=== PATIENT | female | born 1960 | race Caucasian/White ===

== ENCOUNTER → 2018-11-23 08:17 | Outpatient (CLI) | payer BC, SELFPAY ==
--- NOTE | 2018-11-23 08:27 | XR_ITS ---
XR DEXA axial skeleton HISTORY: ITS.REASON: POST MENOPAUSAL SCREENING ORDERING PHYSICIAN: Raiza Webster MD PATIENT AGE: 58 years COMPARISON: None FINDINGS: The BMD measured at the Right femoral neck is 0.920 g/cm squared with a T score of -0.8. This is considered Normal according to the World Health Organization criteria. Fracture risk is Low. Treatment is advised. IMPRESSION: Normal bone density with low fracture risk. Recommend follow-up exam November 2020
--- NOTE | 2018-11-23 08:27 | MM_ITS ---
MM Dig screening mamm BI w/CAD ORDERING PHYSICIAN : Raiza Webster MD PATIENT AGE: 58 years GENDER: Female COMPARISON: Previous bilateral digital mammogram from April 2009 INDICATION: Routine: SCREENING no hormones. No new complaints. Family history. Maternal aunts & maternal cousins with breast cancer TECHNIQUE: Standard CC and MLO images were obtained. R2 CAD reviewed. FINDINGS: Minimal residual fibrolinear elements Lower breast bilaterally with. Mild heterogeneity No dominant mass nor suspicious mass. No architectural distortion. Minor asymmetry with subtle nodularity slightly more evident evident-with this feature appearing similar to previous studies. RIGHT BREAST:No new areas of concern. Follow-up in one year. LEFT BREAST: There are some scattered scattered minimal linear calcifications in the deep axillary breast.-Best seen on the additional axillary cc view & MLO view.. A few of these were seen in 2008 but become more numerous in the interval. Most likely benign secretory calcifications or less likely some form of dermal calcification. Also somewhat similar character linear calcifications at the medial/inferior left breast, labeled X which have developed, & become apparent since prior studies. Although these are more likely benign calcifications a would benefit from follow-up diagnostic left mammogram in 6 months to confirm stability.. Probably with routine protocol thereafter.. IMPRESSION: ... LEFT BREAST loosely grouped, benign-appearing linear calcifications have developed in both the upper outer quadrant ( labeled Y) & inferior medial breast. (Labeled X).. These are by far most likely benign calcifications, likely benign secretory calcifications but would suggest a follow-up left mammogram 6-7 months to better establish and confirm stability. Hopefully with routine protocol thereafter RIGHT BREAST. No new areas of concern follow-up in one year BI-RADS Category: 3 Probably Benign Finding Short Term Follow-up RECOMMENDED FOLLOW-UP: 6M 6 MONTH FOLLOW-UP Follow-up left mammogram 6 - 7 months suggested. (A letter has been sent to the patient regarding results of the study.)
== END ==
PROVIDERS: PCP Emergency Medicine; Visit Provider Emergency Medicine
DX: Z12.13 Encounter for screening for malignant neoplasm of small intestine (principal); Z13.820 Encounter for screening for osteoporosis
CPT/HCPCS: 77067; 77080

== ENCOUNTER → 2019-06-05 14:58 | Outpatient (CLI) | payer BC, SELFPAY ==
--- NOTE | 2019-06-05 15:07 | MM_ITS ---
PROCEDURE: MM DIG MAMM DX UNILAT LT CAD Patient Age:59Y CLINICAL INDICATION: ABN MAMM. Linear scattered calcifications noted at upper outer quadrant on November 2018 mammogram No hormones. No new complaints COMPARISON: [facility] MM Dig screening mamm BI w/CAD from 11/23/2018 left TECHNIQUE: Standard left breast CC and MLO images were obtained. R2 CAD reviewed. Axillary CC view included FINDINGS: Scattered loosely grouped mainly linear calcifications appears stable at upper outer quadrant, unchanged since november 2018 mammogram . A few linear calcifications towards the inferior breast also stable. Of the remainder of the breast appears unchanged with no mass or nodule evident. No additional new areas of concern. Patient may resume bilateral mammogram follow-up in December 2019 IMPRESSION: . Stable left breast The benign-appearing calcifications previously noted have remained stable. Bilateral follow-up and December 2019 recommended to resume annual schedule BI-RAD Category: 2 Benign Finding(s) FOLLOW-UP: 6M 6 Month Follow-up (A letter has been sent to the patient regarding results of the study.) Dictated by: Valentin Moss MD 06/06/2019 11:00 Electronically signed by Valentin Moss MD in [place] 06/06/2019 11:00
== END ==
PROVIDERS: PCP Emergency Medicine; Visit Provider Emergency Medicine
DX: R92.8 Other abnormal and inconclusive findings on diagnostic imaging of breast (principal)
CPT/HCPCS: 77065

== ENCOUNTER → 2019-10-12 11:33 | Outpatient (CLI) | payer BC, SELFPAY ==
--- NOTE | 2019-10-12 11:38 | CA_ITS ---
APPROVED REPORT Left Lower Extremity Venous Study for DVT. Back Stayer: HENRI Indications Lower Extremity Pain: Vein Imaging CFV (L): compressive, spontaneous, phasic, augmentation SFJ (L): compressive, spontaneous, phasic, augmentation FEM (L): compressive, spontaneous, phasic, augmentation POP (L): compressive, spontaneous, phasic, augmentation PTV (L): Compressible GSV (L): Compressible Peroneals (L):Compressible GAS (L): compressive, spontaneous, phasic, augmentation Findings No evidence of DVT or superficial thrombophlebitis in the veins scanned of the left lower extremity. Incidental finding Bakers Cyst l pop area office called Crystal notified Conclusion No evidence of DVT or superficial thrombophlebitis in the veins scanned of the left lower extremity. Small Hernandez's cyst Electronically signed by : Aristides Salinas MD 10/13/2019 17:36:27
--- NOTE | 2019-10-12 12:03 | XR_ITS ---
PROCEDURE: XR KNEE LT 3V CLINICAL INDICATION: LT KNEE PAIN COMPARISON: No exams were available for comparison FINDINGS: No fracture or dislocation. No lytic or blastic change. There is normal mineralization. There are mild osteoarthritic changes involving all 3 compartments most severe at the patellofemoral joint. A small calcific density is present in the medial intercondylar notch region and could be due to small osteophyte or loose body. Other findings:None. IMPRESSION: Osteoarthritis with possible small loose body in the intercondylar region Dictated by: Aristides Salinas MD 10/12/2019 14:05 Electronically signed by Aristides Salinas MD in [place] 10/12/2019 14:05
--- NOTE | 2019-10-13 01:31 | PC.NURSE ---
Medical records sent to [facility]
== END ==
PROVIDERS: PCP Physician Assistant; Visit Provider Physician Assistant
DX: R60.0 Localized edema (principal); M25.562 Pain in left knee
CPT/HCPCS: 73562; 93971

== ENCOUNTER 2020-08-24 09:30 | Emergency (ER) | payer BC, SELFPAY ==
[2020-08-24 09:55] VITALS: BP 149/85; PULSE 89; RESP 19; TEMP 36.8; O2SAT 98; BMI 43.7
--- NOTE | 2020-08-24 10:02 | HMH.EDUTC ---
[facility] [place] Clinical Impression: Sinusitis Qualifiers: Sinusitis location: unspecified location Chronicity: unspecified Qualified Code(s): J32.9 - Chronic sinusitis, unspecified Disposition: Home, Self-Care Condition on Discharge: Good Instructions: Sinusitis, Sinus Headache, DI for Sinusitis, Amoxicillin and Clavulanic Acid Additional Instructions: 4 hours and Motrin every 6 hours (as long as your family doctor has told you that you can take it) for fever or pain. and straight to ER if unable to lower temp less than 101.0 after medication given *Warm salt water gargles may help to soothe the throat *Throat Lozenges *Warm fluids like tea with honey may help to soothe the throat *Sleep elevated *Humidifier/Vaporizer *Flonase 2 sprays in each nostril daily but be aware that it may take 2-3 days before you notice improvement Follow up IMMEDIATELY for new or worsening symptoms or no Noticeable improvement over the next 48-72 hours. 911 for difficulty breathing or swallowing You were tested for today for COVID19 your test result should be back in the next 24-48 hours, you may call to the [facility] to see if your test results are back in the next 48 hours [phone] [facility] hours are 9am-9pm You was given a handout with instructions for Self Quarantine and Self isolation for while you wait on test results and what to do if they are positive If you are positive the Health Dept will be contacting you also Prescriptions: Amoxicillin/Potassium Clav [Augmentin 875-125 Tablet] 1 tab PO Q12H 7 Days #14 tab Transmission Status: Pending to [facility] Fluticasone Propionate [Flonase 50mcg nasal spray 16gm] 1 spr NS DAILY #1 bottle Transmission Status: Pending to [facility] Referrals: Frank Shane MD [Primary Care Provider] - As needed Time of Disposition: 10:10 Medical Decision Making - Luis Inquiry Pt receiving controlled substance: No Luis was queried for this patient: No Vital Signs: 08/24/20 09:55 Temperature 98.3 F Temperature Source Oral Pulse Rate [Radial] 89 Respiratory Rate 19 Blood Pressure [Right Arm] 149/85 H Blood Pressure Mean [Right Arm] 106 Blood Pressure Source [Right Arm] Automatic Cuff Blood Pressure Position [Right Arm] Sitting 02 Sat by Pulse Oximetry 98 Oxygen Delivery Method Room Air Orders (Tests/Meds): ORDERS Category Date Time Status Covid-19 Nasal PCR Sendout [facility] 08/24/20 09:36 Ordered [facility] [place] - General Stated complaint: covid exposure\ Time Seen by Provider: 08/24/20 10:02 Mode of Arrival: Ambulatory Source of Information: Patient Limitations: No Limitations Description of Symptoms (Recalled from Triage Doc. 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 States that for over a week she has been having sinus pain and pressure along with drainage that has continued to get worse over the last 3 days States that she thinks it is a sinus infection but wants to get checked - Related Data Previous Rx's Medication Instructions Recorded Amoxicillin/Potassium Clav 1 tab PO Q12H 7 Days #14 tab 08/24/20 [Augmentin 875-125 Tablet] Fluticasone Propionate [Flonase 1 spr NS DAILY #1 bottle 08/24/20 50mcg nasal spray 16gm] Allergies Allergy/AdvReac Type Severity Reaction Status Date / Time No Known Allergies Allergy Unknown Uncoded 08/31/17 14:27 - Worker's Comp Is this a Worker's Comp case?: No [facility] History - Hepatitis A Screen Drug use history?: No High risk sexual behaviors?: No History of sexually transmitted infection?: No Currently
[2020-08-24 10:18] VITALS: BP 149/85; PULSE 89; RESP 19; TEMP 36.8; O2SAT 98
[2020-08-25 09:34] LABS: Covid-19 Nasal PCR Sendout UK Detected
--- NOTE | 2020-08-25 10:48 | PC.NURSE ---
Patient notified of positive COVID results. Educated on quarantine.
== END 2020-08-24 10:19 | disposition home or self-care (01) ==
PROVIDERS: Emergency Provider Nurse Practitioner; PCP Family Medicine
DX: U07.1 COVID-19 (principal); J32.9 Chronic sinusitis, unspecified
CPT/HCPCS: 99201; U0003

== ENCOUNTER 2020-08-29 10:22 | Emergency (ER) | payer BC, SELFPAY ==
[2020-08-29 10:30] VITALS: BP 104/76; PULSE 102; RESP 22; TEMP 36.6; O2SAT 98; BMI 43.7
--- NOTE | 2020-08-29 10:53 | XR_ITS ---
PROCEDURE: XR CHEST PORTABLE CLINICAL HISTORY: cough, soa Cough, shortness of air, positive Covid19 COMPARISON: No exams were available for comparison FINDINGS: The cardiomediastinal silhouette and pulmonary vascularity are within normal limits. Ground-glass infiltrate noted in the right lower lobe No acute bony abnormalities. IMPRESSION: Right lower lobe ground-glass infiltrate which may be seen with Covid19 pneumonia Dictated by: Aristides Salinas MD 08/29/2020 11:45 Aristides Salinas MD in [place] 08/29/2020 11:45
--- NOTE | 2020-08-29 10:53 | HMH.EDUTC ---
[facility] – [place] Disposition Clinical Impression: COVID-19 Disposition: Home, Self-Care Condition on Discharge: Good Instructions: COVID-19: Protecting Yourself When You're at High Risk, How to Care for Someone with COVID-19, Preventing the Spread of Coronavirus Discharge Instructions Additional Instructions: ? Monitor temp. Tylenol every 4 hours as needed and / or ibuprofen every 6 hours as needed ( As long as your primary care physician has told you that it ok to take both. For fever/aches/pains ER if no less than 101 despite Tylenol or Motrin ? Humidifier/vaporizer or hot steamy shower ? Inhaler every 4-6 hours as needed like we discussed. If unsure how to use it, ask pharmacist to demonstrate how. Should help open airways and improve cough, wheezing, and shortness of breath ? Mucinex during the day for your cough and cough suppressant only at night. Be sure to drink lots of water. Insurance may not cover a prescriptions for mucinex. Might be cheaper to get 400mg tablets and take 2 tablet in the morning, mid-day and evening with lots of water. Make sure that you are taking the vitamins as instructed *Start steroid today. Helps with inflammation therefore, cough and wheezing. Follow directions on the package. Reviewed side effects. Patient reports taking them before. Follow up IMMEDIATELY for new or worsening of symptoms OR no noticeable improvement over the next 48-72 hours. 911 immediately for any life threatening symptoms such as chest pain or difficulty breathing Prescriptions: Albuterol Sulfate [Proventil-HFA 90mcg/puff Inh] 1 - 2 puffs IH Q4HP PRN #1 inh PRN Reason: Shortness Of Breath Transmission Status: Received by [facility] dexAMETHasone [Dexamethasone] 2 mg PO BID #10 tab Transmission Status: Received by [facility] hydrOXYzine pamoate [Vistaril] 25 mg PO BID PRN #10 cap PRN Reason: Anxiety Transmission Status: Received by [facility] Referrals: Frank Shane MD [Primary Care Provider] - As needed Time of Disposition: 11:36 Medical Decision Making - Luis Inquiry Pt receiving controlled substance: No Luis was queried for this patient: No Vital Signs: 08/29/20 10:30 Temperature 97.8 F Temperature Source Oral Pulse Rate [Right Brachial] 102 H Respiratory Rate 22 Blood Pressure [Right Arm] 104/76 L Blood Pressure Mean [Right Arm] 85 Blood Pressure Source [Right Arm] Automatic Cuff Blood Pressure Position [Right Arm] Sitting 02 Sat by Pulse Oximetry 98 Oxygen Delivery Method Room Air Orders (Tests/Meds): ORDERS Category Date Time Status XR chest portable Stat Exams 08/29/20 10:53 Taken - Radiology Data #1 Image(s): Chest Image Reviewed: Yes I reviewed the patient's radiology image, Yes I reviewed the patient's radiology image w/the ED provider Preliminary Findings: Normal/NAD Medical Decision Narrative: Spoke with Dr Crump and he advised to start patient on Dexamethasone, inhaler, and have patient start taking Vitamins patient reports that she is already taking Multivitamins, vitamin D Patient educated to make sure that she is getting at least 1000mg of Vit C and zinc and she advised she thinks she has it at home and if she dont she will have family pick her some up [facility] [place] HPI - General Stated complaint: SOA,covid positive Time Seen by Provider: 08/29/20 10:53 Mode of Arrival: Ambulatory Source of Information: Patient Limitations: No Limitations Description of Symptoms (Recalled from Triage Doc. by RN): PATIENT REPORTS SHE TESTED POSITIVE FOR COVID ON WEDNESDAY. C/O SOA HEENT Symptoms (Recalled from RN notes): No Resp Symptoms (Recalled from RN notes): Yes Skin Symptoms (Recalled from RN notes): No MS Symptoms (Recalled from RN notes): No Functional Status (Recalled from RN notes): WNL - History of Present Illness Provider Complaint: Patient state that she was tested for COVID and found out Wednesday that she was positive for COVID States that at night
[2020-08-29 11:41] VITALS: BP 104/76; PULSE 102; RESP 22; TEMP 36.6; O2SAT 98
== END 2020-08-29 11:45 | disposition home or self-care (01) ==
PROVIDERS: Emergency Provider Nurse Practitioner; PCP Family Medicine
DX: U07.1 COVID-19 (principal); I10 Essential (primary) hypertension; Z79.899 Other long term (current) drug therapy
CPT/HCPCS: 71045; 99201

== ENCOUNTER → 2021-11-10 10:58 | Outpatient (CLI) | payer BC, SELFPAY ==
--- NOTE | 2021-11-10 11:04 | XR_ITS ---
FINAL REPORT CLINICAL HISTORY: ACUTE BILATERAL LOW BACK PAIN, WITHOUT SCIATICA, pain for 36hrs, no known injury FINDINGS: 5 views of the lumbar spine were obtained. There is no evidence of fracture or dislocation. The vertebral alignment is normal. There are mild degenerative changes with facet arthropathy in the lower lumbar spine. No paraspinous soft tissue abnormalities identified. IMPRESSION: No acute bony abnormality. Mild degenerative changes with facet arthropathy lower lumbar spine. Reviewed, Interpreted and Dictated by Elias Mayberry III, MD Transcribed by Deirdre Rodriguez Authenticated by Elias Mayberry III, MD on 11/10/2021 01:13:24 PM [facility]
== END ==
PROVIDERS: PCP Family Medicine; Visit Provider Family Medicine
DX: M54.50 Low back pain, unspecified (principal)
CPT/HCPCS: 72110

== ENCOUNTER → 2021-12-16 14:29 | Outpatient (CLI) | payer BC, SELFPAY | PROVIDERS: PCP Family Medicine; Visit Provider Internal Medicine | DX: Z01.812 Encounter for preprocedural laboratory examination (principal); Z11.52 Encounter for screening for COVID-19; Z13.810 Encounter for screening for upper gastrointestinal disorder | CPT/HCPCS: C9803; U0003; U0005 ==

== ENCOUNTER 2021-12-17 10:23 | Day surgery (SDC) | payer BC, SELFPAY ==
[2021-12-16 14:19] VITALS: BMI 43.3
[2021-12-17] VITALS (8 sets, daily range): BP systolic 88–112; BP diastolic 57–78; PULSE 67–87; RESP 16–20; TEMP 37–37.3; O2SAT 95–97
--- NOTE | 2021-12-17 11:52 | HMH.ANESCL ---
[facility] [place] Anesthesia Checklist - Patient Identification Patient Identification: Arm Band, Verbal (Name & ) - Structural Data Admitted From: Home Planned Operative Procedure/s: Colonoscopy Consent for Planned Operative Procedure(s) Verified: Yes Verified Documents: Surgical Consent - Airway Assessment C-Spine Mobility Assessed: Yes TMJ Mobility Assessed: Yes Dentition: Good Dentition - Neurological Assessment Level of Consciousness: Awake, Alert, Appropriate - Anesthesia Plan Anesthesia Risk discussed: Yes ASA Class: II Anesthesia Type: MAC [facility] [place] History I have reviewed the patient's past medical history: Yes Medical History: Denies:: Diabetes Mellitus Type 1, Diabetes Mellitus Type 2, Internal Pacemaker, Seizures *Have you ever received a pneumonia vaccine?: Yes *Have you received a flu vaccine this season?: Yes Anesthesia experience/problems:: no issues Laterality Cases: Right: Total Knee Replacement, Bilateral: Tonsillectomy Other Surgeries: No: Pacemaker Amputation: No Fractures: No - *Social History Smoking Status: Never smoker Alcohol Intake: never Alcohol Intake Frequency:: holidays/special occasions only Substance Use Type: denies use *Occupational Status:: other Housing: house Household Members: spouse *Travel in the last 8 weeks: None Family Hx:: Unable to obtain
--- NOTE | 2021-12-17 12:08 | HMH.SCOPE ---
- Procedure: Date: 12/17/21 Patient Date of :: 1960 Procedure Performed:: EGD Indications:: GERD. Dysphagia Performing Provider:: Santosh Urban MD Referring Provider:: Kamari Funk MD Sedation:: See RN records Procedure:: The gastroscope was gently passed through the incisoral orifice into the oral cavity and under direct visualization the esophagus was intubated. The endoscope was passed down the esophagus, through the stomach, and into the duodenum. Color, texture, mucosa, and anatomy of the esophagus, stomach, and duodenum were carefully examined with the scope. Findings:: Oropharynx: normal Esophagus: normal EG Junction: Schatzki's ring. Biopsy forceps used to break apart ring. Dilatation performed with 18 mm tts balloon Cardia: Hiatal hernia approximately 3 cm in size Fundus: normal Body: mild gastritis. Biopsy obtained Antrum: mild gastritis. Biopsy obtained Duodenal bulb: normal Duodenum (second and third portion): normal Recommendations:: Await pathology results Return for EGD with esophageal dilatation as needed Follow up with referring provider Complications:: none Estimated blood obtained (mL): 0
== END 2021-12-17 12:54 | disposition home or self-care (01) ==
LOC: OUTP 10:25
PROVIDERS: PCP Family Medicine; Visit Provider Internal Medicine
PROC: 0DJ08ZZ Inspection of Upper Intestinal Tract, Via Natural or Artificial Opening Endoscopic (ICD-10-PCS; CPT 43235; principal; 2021-12-17 11:30)
DX: K22.2 Esophageal obstruction (principal); K29.50 Unspecified chronic gastritis without bleeding; K21.00 Gastro-esophageal reflux disease with esophagitis, without bleeding; I10 Essential (primary) hypertension; F32.A Depression, unspecified; Z79.899 Other long term (current) drug therapy
CPT/HCPCS: 43239; 43249; C1726

== ENCOUNTER → 2021-12-19 10:13 | Outpatient (CLI) | payer BC, SELFPAY ==
--- NOTE | 2021-12-19 10:17 | US_ITS ---
FINAL REPORT CLINICAL HISTORY: GASTROESOPHAGEAL REFLUX,ESOPHAGITIS PRESENCE NOT SPECIFIED; obesity FINDINGS: Sonographic images of the right upper quadrant were obtained. The pancreas is partially obscured. The liver is fatty infiltrated. The gallbladder appears normal without evidence of gallstones.There is no evidence of biliary ductal dilatation.The common duct measures 4mm. Limited images of the right kidney demonstrate cortical thinning better otherwise unremarkable. IMPRESSION: Fatty infiltration of the liver. Right renal cortical thinning. Reviewed, Interpreted and Dictated by Elias Mayberry III, MD Transcribed by Anitha Gonzalez Authenticated by Elias Mayberry III, MD on 12/19/2021 12:24:21 PM [facility]
== END ==
PROVIDERS: PCP Family Medicine; Visit Provider Family Medicine
DX: K21.9 Gastro-esophageal reflux disease without esophagitis (principal)
CPT/HCPCS: 76705

== ENCOUNTER → 2022-04-23 10:17 | Outpatient (CLI) | payer BC, SELFPAY ==
--- NOTE | 2022-04-23 10:23 | MM_ITS ---
PROCEDURE INFORMATION: Exam: MG Bilateral Screening 3D Mammography Exam date and time: 04/23/2022 10:29 AM Age: 62 years old Clinical indication: Screening examination TECHNIQUE: Imaging protocol: Bilateral Screening tomosynthesis and 2D mammography including computer-aided detection (CAD) when performed. COMPARISON: 1. MG MM DIG MAMM DX UNILAT LT CAD 06/05/2019 3:30 PM 2. MG [facility] MM Dig screening mamm BI w/CAD 11/23/2018 8:40 AM FINDINGS: MAMMOGRAPHY: Breast composition: There are scattered areas of fibroglandular density. Mass: None. Architectural distortion: None. Calcifications: No suspicious calcifications. Asymmetric density: None. Skin thickening: None. Axillary adenopathy: None. IMPRESSION: No mammographic evidence of malignancy. Annual screening is recommended unless otherwise clinically indicated. ASSESSMENT: BI-RADS Category 1: Negative
== END ==
PROVIDERS: PCP Family Medicine; Visit Provider Family Medicine
DX: Z12.31 Encounter for screening mammogram for malignant neoplasm of breast (principal)
CPT/HCPCS: 77063; 77067

== ENCOUNTER → 2022-05-04 13:56 | Outpatient (CLI) | payer BC, SELFPAY ==
--- NOTE | 2022-05-04 13:59 | US_ITS ---
FINAL REPORT TECHNIQUE: Ultrasound images of the kidneys and bladder were obtained. CLINICAL HISTORY: REHAL INSUFFICIENCY FINDINGS: The right kidney measures 8 cm in length. There is cortical thinning. There is no hydronephrosis. Decreased flow is seen on the right. The left kidney measures 8 cm in length. There is cortical thinning. There is no hydronephrosis. There is a 3.5 cm left renal lower pole cyst. The urinary bladder is unremarkable. IMPRESSION: Bilateral renal cortical thinning with decreased flow seen of the right kidney. Left renal cyst. Reviewed, Interpreted and Dictated by Ricardo Hooker MD Transcribed by Anitha Gonzalez Authenticated and [facility]
== END ==
PROVIDERS: PCP Family Medicine; Visit Provider Family Medicine
DX: N28.9 Disorder of kidney and ureter, unspecified (principal)
CPT/HCPCS: 76770

== ENCOUNTER → 2022-07-09 07:23 | Outpatient (CLI) | payer BC, SELFPAY ==
[2022-07-09 07:29] LABS: Microscopic, Urine URINE MICROSCOPIC (MICROSCOPIC)
[2022-07-09 08:41] LABS: Appearance,Urine CLEAR (Clear); Bilirubin,Urine Negative (Negative); Blood, Urine Negative (Negative); Color,Urine YELLOW (Yellow); Glucose,Urine (UA) Negative (Negative); Ketones,Urine Negative (Negative); Leukocyte Esterase,Urine 1+ (Negative); Nitrate,Urine Negative (Negative); PH,Urine 5.5 (5.0-8.5); Protein,Urine Negative (Negative); Specific Gravity, Urine 1.025 (1.005-1.030); Urobilinogen,Urine 0.2 EU/dl (0.2)
[2022-07-09 08:43] LABS: Basophils # 0.1 K/mm3 (0-0.2); Basophils % 1.8 % (0.1-2.0); Eosinophils # 0.4 K/mm3 (0.0-0.4); Eosinophils % 7.1 % (0.1-12.0); Hematocrit 45.2 % (37.0-47.0); Hemoglobin 14.6 g/dL (12.2-16.2); Lymphocytes # 1.5 K/mm3 (0.7-4.5); Lymphocytes % 26.2 % (10-50); Mean Corpuscular HGB Conc 32.2 g/dL (31.8-35.4); Mean Corpuscular Hemoglobin 28.7 pg (27.0-31.2); Mean Corpuscular Volume 89.1 fl (81-99); Mean Platelet Volume 8.5 fl (7.4-10.4); Monocytes # 0.5 K/mm3 (0.1-1.0); Monocytes % 8.4 % (1.7-9.3); Neutrophils # 3.3 K/mm3 (1.8-7.8); Neutrophils % 56.5 % (37.0-80.0); Platelet Count 294 K/mm3 (142-424); Red Blood Count 5.08 M/mm3 (4.20-5.40); Red Cell Distribution Width 13.6 % (11.5-17.5); White Blood Count 5.8 K/mm3 (4.8-10.8)
[2022-07-09 08:49] LABS: Total Protein,Urine Random < 5.0 mg/dL (0.0-12.0)
[2022-07-09 08:54] LABS: Albumin Level 3.9 g/dl (3.5-5.0); Anion Gap 13.6 mEq/L (5-15); Blood Urea Nitrogen 14 mg/dl (7-17); Calcium 8.8 mg/dl (8.4-10.2); Carbon Dioxide 25 mmol/L (22.0-30.0); Chloride 105 mmol/L (98-107); Estimated Glomerular Filt Rate 38 ml/min (>60); GFR (African American) 46 ML/MIN (>60); Glucose 126 mg/dl (74-100); Phosphorous 3.7 mg/dl (2.5-4.5); Potassium 4.6 mmoL/L (3.5-5.1); Sodium 139 mmol/L (136-145)
[2022-07-09 08:55] LABS: Bacteria,Urine 2+ /lpf; Squamous Epithelial Cell,Urine 20-50 #/hpf (0-5)
[2022-07-09 08:59] LABS: Creatinine,Urine Random 219 mg/dL (Not Estab.)
[2022-07-09 09:06] LABS: Intact Parathyroid Hormone 79.4 pg/mL (7.5-53.5)
== END ==
PROVIDERS: PCP Family Medicine; Visit Provider Internal Medicine Nephrology
DX: N28.9 Disorder of kidney and ureter, unspecified (principal); E55.9 Vitamin D deficiency, unspecified
CPT/HCPCS: 36415; 80069; 81001; 82306; 82570; 83970; 84155; 85025; 87086

== ENCOUNTER → 2022-07-13 15:16 | Outpatient (POV) | payer BC, SELFPAY | PROVIDERS: Visit Provider Internal Medicine Nephrology | DX: Z00.00 Encounter for general adult medical examination without abnormal findings (principal) ==

== ENCOUNTER 2024-08-05 12:00 | Emergency (ER) | payer MEDICARE, BC, SELFPAY ==
[2024-08-05] VITALS (8 sets, daily range): BP systolic 103–133; BP diastolic 59–76; PULSE 59–71; RESP 18–20; TEMP 36.4–36.7; O2SAT 95–99; BMI 44.8
--- NOTE | 2024-08-05 12:06 | CT_ITS ---
PROCEDURE INFORMATION: Exam: CT Thoracic Spine Without Contrast Exam date and time: 08/05/2024 12:35 PM Age: 64 years old Clinical indication: Injury or trauma; Additional info: Trauma, critical injury suspected TECHNIQUE: Imaging protocol: Computed tomography of the thoracic spine without contrast. Radiation optimization: All CT scans at this facility use at least one of these dose optimization techniques: automated exposure control; mA and/or kV adjustment per patient size (includes targeted exams where dose is matched to clinical indication); or iterative reconstruction. COMPARISON: CT CERVICAL SPINE WO CON 08/05/2024 12:32 PM FINDINGS: Bones/joints: There is preservation of vertebral alignment and vertebral body heights. Facet joints are aligned. No acute fracture. There is no significant osseous encroachment of the spinal canal or neural foraminal narrowing at any level. Anterior flowing osteophytes noted. Soft tissues: Unremarkable. Other findings: For findings in the chest and lumbar soine please refer to the separately dictated chest and lumbar CT reports under separate accession numbers. IMPRESSION: No acute fracture. No traumatic subluxation.
--- NOTE | 2024-08-05 12:06 | CT_ITS ---
PROCEDURE INFORMATION: Exam: CT Lumbar Spine Without Contrast Exam date and time: 08/05/2024 12:38 PM Age: 64 years old Clinical indication: Injury or trauma; Additional info: Trauma, critical injury suspected TECHNIQUE: Imaging protocol: Computed tomography of the lumbar spine without contrast. Radiation optimization: All CT scans at this facility use at least one of these dose optimization techniques: automated exposure control; mA and/or kV adjustment per patient size (includes targeted exams where dose is matched to clinical indication); or iterative reconstruction. COMPARISON: CR XR LUMBAR SPINE MIN 4V 11/10/2021 11:09 AM FINDINGS: Bones/joints: There is preservation of vertebral alignment. There is preservation of vertebral body heights. There are acute mildly displaced fractures encompassing the left L3-L4 and L5 transverse processes. Possible acute hairline fracture of the left sacral ala (series 1001 image 36). There is a large bridging osteophyte at L1-L2 level. There is a nondisplaced fracture (series 1002, image 37) at the L2 attachment. Soft tissues: Unremarkable. IMPRESSION: 1. There are acute mildly displaced fractures encompassing the left L3-L4 and L5 transverse processes. No traumatic subluxation. 2. Possible, acute, hairline fracture of the left sacral ala (series 1001 image 36). 3. There is a large bridging osteophyte at L1-L2 level. There is a nondisplaced fracture (series 1002, image 37) at the L2 attachment.
--- NOTE | 2024-08-05 12:06 | CT_ITS ---
PROCEDURE INFORMATION: Exam: CT Head Without Contrast Exam date and time: 08/05/2024 12:30 PM Age: 64 years old Clinical indication: Injury or trauma; Fall; Blunt trauma (contusions or hematomas); Additional info: Trauma, critical injury suspected TECHNIQUE: Imaging protocol: Computed tomography of the head without contrast. Radiation optimization: All CT scans at this facility use at least one of these dose optimization techniques: automated exposure control; mA and/or kV adjustment per patient size (includes targeted exams where dose is matched to clinical indication); or iterative reconstruction. COMPARISON: No relevant prior studies available. FINDINGS: Brain: No intracranial bleed. No midline shift. Mild chronic intracranial changes, likely age related. Cerebral ventricles: No ventriculomegaly. Paranasal sinuses: Visualized sinuses are unremarkable. No fluid levels. Mastoid air cells: Visualized mastoid air cells are well aerated. Bones: Unremarkable. No acute fracture. Soft tissues: Unremarkable. IMPRESSION: No acute intracranial abnormality.
--- NOTE | 2024-08-05 12:06 | CT_ITS ---
PROCEDURE INFORMATION: Exam: CT Cervical Spine Without Contrast Exam date and time: 08/05/2024 12:32 PM Age: 64 years old Clinical indication: Injury or trauma; Additional info: Trauma, critical injury suspected TECHNIQUE: Imaging protocol: Computed tomography of the cervical spine without contrast. Radiation optimization: All CT scans at this facility use at least one of these dose optimization techniques: automated exposure control; mA and/or kV adjustment per patient size (includes targeted exams where dose is matched to clinical indication); or iterative reconstruction. COMPARISON: CT HEAD/BRAIN WO CON 08/05/2024 12:30 PM FINDINGS: Bones: No acute fracture. Normal alignment. No significant disc bulge or herniation. No severe spinal canal stenosis. No significant neural foraminal narrowing. Lungs: Lung apices are normal. Soft tissues: Unremarkable. IMPRESSION: No acute findings.
--- NOTE | 2024-08-05 12:06 | HMH.EDGENADL ---
Discharge Plan Disposition Patient Disposition: Home, Self-Care Condition: Fair Prescriptions Prescriptions: New hydrocodone-acetaminophen 5-325 mg tablet 1 tab PO Q8H PRN (Reason: pain) Qty: 12 0RF ondansetron HCl 4 mg tablet 4 mg PO DAILY Qty: 30 0RF No Action lisinopril 20 MG tablet 20 mg PO DAILY pantoprazole 40 MG tablet,delayed release (DR/EC) 40 mg PO HS sertraline 50 MG tablet 50 mg PO DAILY multivitamin 1 EACH tablet 1 each PO DAILY cyanocobalamin (vitamin B-12) 100 MCG tablet 100 mcg PO DAILY famotidine 10 MG tablet 10 mg PO DAILY pravastatin 40 MG tablet 40 mg PO HS cholecalciferol (vitamin D3) 1,000 UNIT capsule 1,000 unit PO DAILY Referrals Follow up/Referrals: Provider,Referral, [Primary Care Provider] - See instructions Activity Restrictions/Add. Instructions Additional Instructions/Restrictions: Ambulate as comfortable. [facility] trauma clinic will call you for a follow-up in their clinic. If you have any worsening pain please return to the ED or follow-up with your primary care physician. Clinical Impressions Clinical Impression: Fracture of transverse process of lumbar vertebra Instructions Patient Instructions: How to Prevent Falls, DI for Transverse Process Fracture Print Language Print Language: [place] Discharge ED Provider: Fawad Stephens General Adult HPI <Christie Cates (ED), MACHINE II CUTTER - Last Filed: 08/05/24 16:05> General Chief complaint: Fall Stated complaint: fall Time Seen by Provider: 08/05/24 12:05 History of Present Illness HPI narrative: This is a 64-year-old female who presents to the ED today after she fell off the right side of her staircase. She fell flat onto her back. She says her left side took the impact. She is having left hip pain and left sided back pain. She says initially when she fell she had some numbness in her left last 3 fingers on her hand and some left ankle pain but those are not gone at this time. This happened approximately 11 AM. She is on no blood thinners. She says her head did bounce off the ground. She is alert and oriented x 4 and able to tell me the complete story. She got up on her own and was able to climb back up the stairs on her own. She denies any chest or abdominal pain no upper back pain no neck pain. Related Data Home Medications ?Medication ?Instructions ?Recorded ?Confirmed lisinopril 20 mg tablet 20 mg PO DAILY Hypertension 08/29/20 12/17/21 pantoprazole 40 mg tablet,delayed 40 mg PO HS GERD 08/29/20 12/17/21 release sertraline 50 mg tablet 50 mg PO DAILY Depression 08/29/20 12/17/21 cholecalciferol (vitamin D3) 25 1,000 unit PO DAILY Supplement 12/16/21 12/17/21 mcg (1,000 unit) capsule cyanocobalamin (vitamin B-12) 100 100 mcg PO DAILY Supplement 12/16/21 12/17/21 mcg tablet famotidine 10 mg tablet 10 mg PO DAILY GERD 12/16/21 12/17/21 multivitamin 1 each PO DAILY Supplement 12/16/21 12/17/21 pravastatin 40 mg tablet 40 mg PO HS Cholesterol 12/16/21 12/17/21 Previous Rx's ?Medication ?Instructions ?Recorded hydrocodone 5 mg-acetaminophen 325 1 tab PO Q8H PRN pain #12 tabs 08/05/24 mg tablet ondansetron HCl 4 mg tablet 4 mg PO DAILY #30 tabs 08/05/24 Allergies Allergy/AdvReac Type Severity Reaction Status Date / Time No Known Allergies Allergy Verified 12/16/21 14:18 [facility] <Christie Cates (BJ), MACHINE II CUTTER - Last Filed: 08/05/24 16:05> [facility] Disclaimer: The information contained in this section may have been updated after the patient was seen, as this information can be updated by other users. Social History (Updated 08/05/24 @ 16:05 by Christie Cates (BJ), MACHINE II CUTTER) Smoking Status: Never smoker alcohol intake: current alcohol intake frequency: holidays/special occasions only substance use type: denies use current occupational status: retired Travel in the last 8 weeks: None household members: spouse housing: house current occupational exposures/hazards: No caffeine: Yes Other Medical History Have you received the Flu Vaccine for this season: Yes Have you received the Pneumonia Vaccine: Yes <Christie VITAL), MACHINE II CUTTER - Last Filed: 08/05/24 16:05> ROS Obtained: Yes Systems reviewed as appropriate & no additional complaints except as documented Constitutional Constitutional: Reports as per HPI Physical Exam <Christie Cates (ED), MACHINE II CUTTER - Last Filed: 08/05/24 16:05> General General appearance: alert and in distress Head Head exam: atraumatic and normocephalic Eye Eye exam: Present normal appearance, PERRL and EOMI ENT ENT exam: Present normal exam, normal oropharynx and mucous membranes moist Neck Neck exam: Present normal inspection, full ROM and trachea midline Chest Chest inspection: Present normal inspection Respiratory Respiratory exam: Present normal lung sounds bilaterally Cardiovascular Cardiovascular exam: Present regular rate, normal rhythm, normal heart sounds, +S1 and +S2 Abdominal Exam Abdominal exam: Present soft and normal bowel sounds Extremities Exam Extremities exam: Present normal inspection, tenderness (Pain to left hip and with moving left leg) and normal capillary refill Back Exam Back exam: Present other (Pain to left low back and left hip) Neurological Exam Neurological exam: Present alert and oriented X3 Psychiatric Psychiatric exam: Present normal affect and normal mood Skin Skin exam: Present warm, dry and intact Medical Decision Making <Christie Cates (ED), MACHINE II CUTTER - Last Filed: 08/05/24 16:05> Medical Records Screening: Per USPSTF and CDC recommendations, given the prevalence of disease in our region, it is our hospital?s policy to screen for HIV and viral Hepatitis for all patients aged 18 and over and those with ongoing risk factors. Luis Inquiry Pt receiving controlled substance: No Luis was queried for this patient: No Vital Signs: 08/05/24 12:04 08/05/24 12:07 08/05/24 13:09 Temperature 97.6 F Temperature Source Oral Pulse Rate 63 70 Pulse Rate [Left] 61 Respiratory Rate 20 Blood Pressure 103/76 L 124/72 Blood Pressure [Right Arm] 103/76 L Blood Pressure Mean Blood Pressure Mean [Right Arm] 85 Blood Pressure Source [Right Arm] Automatic Cuff Blood Pressure Position [Right Arm] Sitting 02 Sat by Pulse Oximetry 99 99 97 Oxygen Delivery Method Room Air 08/05/24 13:31 08/05/24 13:35 08/05/24 14:31 Temperature Temperature Source Pulse Rate 66 59 L Pulse Rate [Left] Respiratory Rate Blood Pressure 125/63 111/70 133/59 L Blood Pressure [Right Arm] Blood Pressure Mean 83 Blood Pressure Mean [Right Arm] Blood Pressure Source [Right Arm] Blood Pressure Position [Right Arm] 02 Sat by Pulse Oximetry 97 95 Oxygen Delivery Method 08/05/24 15:01 08/05/24 15:31 Temperature 98.1 F Temperature Source Oral Pulse Rate 71 Pulse Rate [Left] Respiratory Rate 18 Blood Pressure 107/75 L 107/75 L Blood Pressure [Right Arm] Blood Pressure Mean 82 Blood Pressure Mean [Right Arm] Blood Pressure Source [Right Arm] Blood Pressure Position [Right Arm] 02 Sat by Pulse Oximetry Oxygen Delivery Method Room Air Lab Data Lab Results 08/05/24 12:23: WBC 7.0, RBC 5.01, Hgb 14.1, Hct 42.8, MCV 85.3, MCH 28.1, MCHC 32.9, RDW 14.2, Plt Count 257, MPV 8.2, Neut % (Auto) 68.0, Lymph % (Auto) 16.2, [place] % (Auto) 7.6, Eos % (Auto) 6.6, Baso % (Auto) 1.6, Neut # (Auto) 4.7, Lymph # (Auto) 1.1, [place] # (Auto) 0.5, Eos # (Auto) 0.5 H, Baso # (Auto) 0.1, Sodium 139, Potassium 4.5, Chloride 103, Carbon Dioxide 25, Anion Gap 15.5 H, BUN 19 H, Creatinine 1.80 H, Estimated Creat Clear 25, Estimated GFR 28 L, Est GFR ( Amer) 34 L, Glucose 162 H, Calcium 9.3, Total Bilirubin 0.6, AST 27, ALT 21, Alkaline Phosphatase 75, Total Protein 6.9, Albumin 4.2, Globulin 2.7, Albumin/Globulin Ratio 1.6, Hepatitis C Antibody Non reactive, HIV 1&2 Antibody Rapid Nonreactive 08/05/24 12:23 08/05/24 12:23 Orders (Tests/Meds): ED MEDICATIONS Discontinued Medications Generic Name Dose Route Start Last Admin Trade Name Freq PRN Reason Stop Dose Admin Morphine Sulfate 4 mg 08/05/24 14:00 08/05/24 14:09 Morphine 4mg/Ml Syringe IV 08/05/24 14:01 4 mg ONCE ONE Administration Ondansetron HCl 4 mg 08/05/24 12:09 08/05/24 14:08 Ondansetron 4mg/2ml Vial IV 08/05/24 12:10 Not Given ONCE ONE Ondansetron HCl 4 mg 08/05/24 14:00 08/05/24 14:08 Ondansetron 4mg/2ml Vial IV 08/05/24 14:01 4 mg ONCE ONE Administration ORDERS Category Date Time Status CT bony pelvis Stat Cat Scan 08/05/24 12:[address] cervical spine wo con Stat Cat Scan 08/05/24 12:[address] chest wo con Stat Cat Scan 08/05/24 12:[address] head/brain wo con Stat Cat Scan 08/05/24 12:[address] lumbar spine wo con Stat Cat Scan 08/05/24 12:[address] thoracic spine wo con Stat Cat Scan 08/05/24 12:06 Completed Hip XR left minimum 2 views [XR hip LT 2-3V w/pelvis] Exams 08/05/24 14:21 Completed Stat CBC [Complete Blood Count Auto Diff] Stat Lab 08/05/24 12:23 Completed Comprehensive Metabolic Panel Stat Lab 08/05/24 12:23 Completed HIV (1&2) Antibody Rapid Stat Lab 08/05/24 12:23 Completed Hep C Ab with Reflex to RNA Stat Lab 08/05/24 12:23 Completed Physician Consults Physician Consulted: [facility] Time: 13:51 Comment/Response: Patient to follow-up outpatient trauma that we will call patient with appointment next week Medical Decision Narrative: Insert review patient is a 64-year-old female presenting to the emergency department for evaluation of fall 1 hour prior to arrival. She fell over her the side of the stairs landing on back.. Patient is hemodynamically stable and nontoxic-appearing upon arrival, afebrile. Differential diagnosis includes fractures versus abrasions and sprains and strains. Workup will be conducted with hematologic labs, CT scans of hip, back head and neck. Initial inventions include analgesics. Initial workup reviewed by me normal labs. Imaging informally interpreted by me and remarkable for possible sacral fracture Formal imaging read remarkable for questionable sacral fracture, L2-L4 transverse process fracture. upon repeat evaluation patient's pain is improved. Discussed with [facility] and they recommend patient getting PT. Send home and following up in trauma clinic in 2 to 3 weeks. He said that nothing to do about process fractures. He did not see a fracture of the sacral area on the scan when he looked. [facility] will call patient with appointment for follow-up. Patient up to walk in the ER with pain but still able to ambulate will send home with pain meds <Fawad Stephens MD - Last Filed: 08/06/24 15:24> Vital Signs: 08/05/24 12:04 08/05/24 12:07 08/05/24 13:09 Temperature 97.6 F Temperature Source Oral Pulse Rate 63 70 Pulse Rate [Left] 61 Respiratory Rate 20 Blood Pressure 103/76 L 124/72 Blood Pressure [Right Arm] 103/76 L Blood Pressure Mean Blood Pressure Mean [Right Arm] 85 Blood Pressure Source [Right Arm] Automatic Cuff Blood Pressure Position [Right Arm] Sitting 02 Sat by Pulse Oximetry 99 99 97 Oxygen Delivery Method Room Air 08/05/24 13:31 08/05/24 13:35 08/05/24 14:31 Temperature Temperature Source Pulse Rate 66 59 L Pulse Rate [Left] Respiratory Rate Blood Pressure 125/63 111/70 133/59 L Blood Pressure [Right Arm] Blood Pressure Mean 83 Blood Pressure Mean [Right Arm] Blood Pressure Source [Right Arm] Blood Pressure Position [Right Arm] 02 Sat by Pulse Oximetry 97 95 Oxygen Delivery Method 08/05/24 15:01 08/05/24 15:31 Temperature 98.1 F Temperature Source Oral Pulse Rate 71 Pulse Rate [Left] Respiratory Rate 18 Blood Pressure 107/75 L 107/75 L Blood Pressure [Right Arm] Blood Pressure Mean 82 Blood Pressure Mean [Right Arm] Blood Pressure Source [Right Arm] Blood Pressure Position [Right Arm] 02 Sat by Pulse Oximetry Oxygen Delivery Method Room Air Lab Data Lab Results 08/05/24 12:23: WBC 7.0, RBC 5.01, Hgb 14.1, Hct 42.8, MCV 85.3, MCH 28.1, MCHC 32.9, RDW 14.2, Plt Count 257, MPV 8.2, Neut % (Auto) 68.0, Lymph % (Auto) 16.2, [place] % (Auto) 7.6, Eos % (Auto) 6.6, Baso % (Auto) 1.6, Neut # (Auto) 4.7, Lymph # (Auto) 1.1, [place] # (Auto) 0.5, Eos # (Auto) 0.5 H, Baso # (Auto) 0.1, Sodium 139, Potassium 4.5, Chloride 103, Carbon Dioxide 25, Anion Gap 15.5 H, BUN 19 H, Creatinine 1.80 H, Estimated Creat Clear 25, Estimated GFR 28 L, Est GFR ( Amer) 34 L, Glucose 162 H, Calcium 9.3, Total Bilirubin 0.6, AST 27, ALT 21, Alkaline Phosphatase 75, Total Protein 6.9, Albumin 4.2, Globulin 2.7, Albumin/Globulin Ratio 1.6, Hepatitis C Antibody Non reactive, HIV 1&2 Antibody Rapid Nonreactive Orders (Tests/Meds): ED MEDICATIONS Discontinued Medications Generic Name Dose Route Start Last Admin Trade Name Freq PRN Reason Stop Dose Admin Morphine Sulfate 4 mg 08/05/24 14:00 08/05/24 14:09 Morphine 4mg/Ml Syringe IV 08/05/24 14:01 4 mg ONCE ONE Administration Ondansetron HCl 4 mg 08/05/24 12:09 08/05/24 14:08 Ondansetron 4mg/2ml Vial IV 08/05/24 12:10 Not Given ONCE ONE Ondansetron HCl 4 mg 08/05/24 14:00 08/05/24 14:08 Ondansetron 4mg/2ml Vial IV 08/05/24 14:01 4 mg ONCE ONE Administration ORDERS Category Date Time Status CT bony pelvis Stat Cat Scan 08/05/24 12:[address] cervical spine wo con Stat Cat Scan 08/05/24 12:[address] chest wo con Stat Cat Scan 08/05/24 12:[address] head/brain wo con Stat Cat Scan 08/05/24 12:[address] lumbar spine wo con Stat Cat Scan 08/05/24 12:[address] thoracic spine wo con Stat Cat Scan 08/05/24 12:06 Completed Hip XR left minimum 2 views [XR hip LT 2-3V w/pelvis] Exams 08/05/24 14:21 Completed Stat CBC [Complete Blood Count Auto Diff] Stat Lab 08/05/24 12:23 Completed Comprehensive Metabolic Panel Stat Lab 08/05/24 12:23 Completed HIV (1&2) Antibody Rapid Stat Lab 08/05/24 12:23 Completed Hep C Ab with Reflex to RNA Stat Lab 08/05/24 12:23 Completed ECG Data Tracing #1: I reviewed this ECG and interpreted as documented below: (Sinus rhythm 65 beats a minute. MN 140, QRS 88, QTc 426. Leftward axis. No acute ischemic change) Medical Decision Narrative: Insert review patient is a 64-year-old female presenting to the emergency department for evaluation of fall 1 hour prior to arrival. She fell over her the side of the stairs landing on back.. Patient is hemodynamically stable and nontoxic-appearing upon arrival, afebrile. Differential diagnosis includes fractures versus abrasions and sprains and strains. Workup will be conducted with hematologic labs, CT scans of hip, back head and neck. Initial inventions include analgesics. Initial workup reviewed by me normal labs. Imaging informally interpreted by me and remarkable for possible sacral fracture Formal imaging read remarkable for questionable sacral fracture, L2-L4 transverse process fracture. upon repeat evaluation patient's pain is improved. Discussed with [facility] and they recommend patient getting PT. Send home and following up in trauma clinic in 2 to 3 weeks. He said that nothing to do about process fractures. He did not see a fracture of the sacral area on the scan when he looked. [facility] will call patient with appointment for follow-up. Patient up to walk in the ER with pain but still able to ambulate will send home with pain meds I was consulted by the ALICIA, and we discussed the complexity of the problems being addressed. I approved the treatment and management plan for this patient's care in the Emergency Department, thus performing a substantive portion of the medical decision making. Fawad Stephens MD Critical Care <Christie Cates (ED), MACHINE II CUTTER - Last Filed: 08/05/24 16:05> Critical Care Time Critical Care Time: No
--- NOTE | 2024-08-05 12:07 | CT_ITS ---
PROCEDURE INFORMATION: Exam: CT Pelvis Without Contrast, Skeleton Exam date and time: 08/05/2024 12:44 PM Age: 64 years old Clinical indication: Injury or trauma; Additional info: Trauma, critical injury suspected TECHNIQUE: Imaging protocol: Computed tomography of the pelvis without contrast. Exam focused on the skeleton. Radiation optimization: All CT scans at this facility use at least one of these dose optimization techniques: automated exposure control; mA and/or kV adjustment per patient size (includes targeted exams where dose is matched to clinical indication); or iterative reconstruction. COMPARISON: CT LUMBAR SPINE WO CON 08/05/2024 12:38 PM FINDINGS: Bones/joints: For findings in the lumbar spine, please refer to the separately dictated lumbar spine CT report under a separate accession number. There appears to be a hairline fracture along the left sacral ala. Femoral heads are well seated in the acetabula. Femoral necks are intact. Pubic rami are unremarkable. Soft tissues: Unremarkable. IMPRESSION: There appears to be a hairline fracture along the left sacral ala.
--- NOTE | 2024-08-05 12:08 | CT_ITS ---
PROCEDURE INFORMATION: Exam: CT Chest Without Contrast; Diagnostic Exam date and time: 08/05/2024 12:40 PM Age: 64 years old Clinical indication: Injury or trauma; Additional info: Fall TECHNIQUE: Imaging protocol: Diagnostic computed tomography of the chest without contrast. Radiation optimization: All CT scans at this facility use at least one of these dose optimization techniques: automated exposure control; mA and/or kV adjustment per patient size (includes targeted exams where dose is matched to clinical indication); or iterative reconstruction. COMPARISON: CR XR CHEST PORTABLE 08/29/2020 11:13 AM FINDINGS: Trachea: Main airways are patent. Lungs: No pulmonary contusion or laceration. No evidence of consolidation or interlobular septal thickening. There is a right lower lobe pulmonary granuloma. Pleural spaces: Unremarkable. No pneumothorax. No pleural effusion. Heart: Unremarkable. No cardiomegaly. No pericardial effusion. Coronary arteries: No significant coronary artery calcifications. Lymph nodes: Calcified mediastinal and hilar lymph nodes suggest prior granulomatous exposure. Vasculature: Aorta is nonaneurysmal. Diaphragm: Hiatal hernia noted. Bones/joints: No acute osseous abnormality. Soft tissues: Unremarkable. IMPRESSION: 1. No pulmonary contusion or laceration. 2. No acute osseous abnormality.
[2024-08-05 12:39] LABS: Basophils # 0.1 K/mm3 (0-0.2); Basophils % 1.6 % (0.1-2.0); Eosinophils # 0.5 K/mm3 (0.0-0.4); Eosinophils % 6.6 % (0.1-12.0); Hematocrit 42.8 % (37.0-47.0); Hemoglobin 14.1 g/dL (12.2-16.2); Lymphocytes # 1.1 K/mm3 (0.7-4.5); Lymphocytes % 16.2 % (10-50); Mean Corpuscular HGB Conc 32.9 g/dL (31.8-35.4); Mean Corpuscular Hemoglobin 28.1 pg (27.0-31.2); Mean Corpuscular Volume 85.3 fl (81-99); Mean Platelet Volume 8.2 fl (7.4-10.4); Monocytes # 0.5 K/mm3 (0.1-1.0); Monocytes % 7.6 % (1.7-9.3); Neutrophils # 4.7 K/mm3 (1.8-7.8); Platelet Count 257 K/mm3 (142-424); Red Blood Count 5.01 M/mm3 (4.20-5.40); Red Cell Distribution Width 14.2 % (11.5-17.5)
[2024-08-05 12:49] LABS: Chloride 103 mmol/L (98-107)
[2024-08-05 12:50] LABS: Albumin Level 4.2 g/dl (3.5-5.0); Potassium 4.5 mmoL/L (3.5-5.1); Sodium 139 mmol/L (136-145)
[2024-08-05 12:53] LABS: Alanine Aminotransferase 21 U/L (12-78); Albumin/Globulin Ratio 1.6 (1.1-1.8); Alkaline Phosphatase 75 U/L (38-126); Anion Gap 15.5 mEq/L (5-15); Aspartate Amino Transferase 27 U/L (14-36); Bilirubin,Total 0.6 mg/dl (0.2-1.3); Blood Urea Nitrogen 19 mg/dl (7-17); Calcium 9.3 mg/dl (8.4-10.2); Carbon Dioxide 25 mmol/L (22.0-30.0); Creatinine Clearance Estimated 25 mL/min (50-200); Estimated Glomerular Filt Rate 28 ml/min (>60); GFR (African American) 34 ML/MIN (>60); Globulin 2.7 g/dL (1.3-3.2); Glucose 162 mg/dl (74-100); Total Protein,Serum 6.9 g/dl (6.3-8.2)
--- NOTE | 2024-08-05 13:07 | ECG_ITS ---
APPROVED REPORT Exam: Resting ECG HR:65 bpm ECG Measurements Heart Rate 65 AXES OH 140 P 43 QRSd 88 QRS 2 QT 414 T 40 QTc 426 Conclusion SINUS RHYTHM Electronically signed by : AMELIA CASTREJON, 08/05/2024 14:59:11
--- NOTE | 2024-08-05 13:36 | PC.NURSE ---
c collar removed per order
[2024-08-05] MEDS: ONDANSETRON 4MG/2ML VIAL 4 MG IV (14:08)
[2024-08-05] MEDS: MORPHINE 4MG/ML SYRINGE 4 MG IV (14:09)
--- NOTE | 2024-08-05 14:18 | PC.NURSE ---
Rochelle SENIOR [employer] speaking with [facility]
--- NOTE | 2024-08-05 14:21 | XR_ITS ---
PROCEDURE INFORMATION: Exam: XR Left Hip Exam date and time: 08/05/2024 2:25 PM Age: 64 years old Clinical indication: Injury or trauma; Fall; Blunt trauma (contusions or hematomas); Left; Hip TECHNIQUE: Imaging protocol: Radiologic exam of the left hip. Views: 2 or 3 views hip with pelvis when performed. COMPARISON: CT BONY PELVIS 08/05/2024 12:44 PM FINDINGS: Bones/joints: Questionable left sacral ala fracture is better characterized on prior CT bony pelvis. Left hip joint is unremarkable. Soft tissues: Unremarkable. IMPRESSION: Questionable left sacral ala fracture is better characterized on prior CT bony pelvis.
[2024-08-05 15:15] LABS: HIV (1&2) Antibody Rapid NONREACTIVE (NONREACTIVE)
--- NOTE | 2024-08-05 15:22 | PC.NURSE ---
pt was able to ambulate in the room with minimal assistance, pt states that she feels she is walking good enough to go home, family at bs, Rochelle BYERS aware
[2024-08-06 11:13] LABS: HCV Ab Non Reactive (Non Reactive)
== END 2024-08-05 15:33 | disposition home or self-care (01) ==
PROVIDERS: Nurse Practitioner; Emergency Provider Emergency Medicine
DX: S32.009A Unspecified fracture of unspecified lumbar vertebra, initial encounter for closed fracture (principal); M25.552 Pain in left hip; M54.9 Dorsalgia, unspecified; R20.2 Paresthesia of skin; M25.572 Pain in left ankle and joints of left foot; W10.8XXA Fall (on) (from) other stairs and steps, initial encounter; Y93.89 Activity, other specified; Y92.9 Unspecified place or not applicable
CPT/HCPCS: 70450; 71250; 72125; 72128; 72131; 72192; 73502; 80053; 85025; 86803; 87389; 93005; 96374; 96375; 99285; J2270; J2405

== ENCOUNTER 2025-02-16 09:21 | Outpatient (CLI) | payer MEDICARE, BC, SELFPAY ==
--- NOTE | 2025-02-16 09:24 | XR_ITS ---
FINAL REPORT TECHNIQUE: Bone densitometry calculations of the lumbar spine and bilateral hips were obtained. CLINICAL HISTORY: SCREENING COMPARISON: None FINDINGS: Using L1-4, the bone mineral density of the spine is 1.002 g/cm2, corresponding to T-score of -0.4 and a Z score of 1.4. This is within the range of normal. Using the left hip, the bone mineral density of the femoral neck is 0.770 g/cm2, corresponding to a T-score of -0.7 and a Z-score of 0.9. This is within the range of normal. Using the right hip, the bone mineral density of the femoral neck is 0.747 g/cm?, corresponding to a T-score of 0.9 and a Z-score of 0.6. This is within the range of normal. NOTE: T-score: Standard deviation compared with peak bone mass of young adult mean. *Following the recommendations of the International Society of Bone densitometry, classification of hip BMD is based on the lower of two T-scores; total hip or femoral neck. IMPRESSION: 1. Bone mineral density of the lumbar spine within the range of normal. 2. Bone mineral density of the bilateral femoral necks within the range of normal. Reviewed, Interpreted and Dictated by Nina Smyth MD Transcribed by Chanda Chavez Authenticated and [facility]
== END 2025-02-16 23:59 | disposition home or self-care (01) ==
LOC: RAD 09:22
PROVIDERS: PCP Family Medicine; Visit Provider Family Medicine
DX: Z13.820 Encounter for screening for osteoporosis (principal)
CPT/HCPCS: 77080

== ENCOUNTER 2025-05-01 10:32 | Outpatient (CLI) | payer MEDICARE, BC, SELFPAY ==
--- OUTSIDE RECORDS SUMMARY | 2024-11-20 05:45 | XMS_ITS ---
Author Organization [facility] Address [address] [facility] [address] [place] [id number] Care Team Providers Care Management Assistant Name Role Phone Ester Michael Primary Care Provider Rodrigo Funk Unavailable [phone] Laura Singh Unavailable [phone] Allergies No Known Allergies Results Component Value Reference Range Notes Glycohemoglobin A1c (in hous e) Reviewed date:11/20/2024 01:09:56 PM Interpretation:6.4% Performing Lab: Notes/Report: 6.4% glycohemoglobin 6.4% 5 - 6.5 % P-Comprehensive Metabolic Pa kathleen (CMP) Reviewed date:11/22/2024 04:36:59 PM Interpretation:gluc 151, Cr 1.4, gfr 42 Performing Lab: Notes/Report: Test performed by [employer] [address] [place] [address] , [address], [place] [address] Dalton Jonas MD, Pricing Coordinator CLIA: [id number] Sodium 139 135-145 mmol/L Potassium 5.2 3.5-5.3 [...] Status W/U Status Risk Notes Problem Hypertension (37482219) HTN (hypertens ion) (I10) Active confirmed Problem Body mass index 40+ - severely obese (101155308) BMI 45.0-49.9, adult (Z68.42) Active confirmed Vital Signs Blood pressure systolic 120 mm Hg 11/21/19 25 Blood pressure diastolic 80 mm Hg 025 Heart Rate 87 /min 11/20/2024 Height 61 in 11/20/2024 Weight 241.2 lbs 11/20/2024 BMI 45.57 kg/m2 11/20/2024 Encounters Encounter Location Date Provider Diagnosis [facility] [address] [facility] [address] [place] [id number] 11/20/2024 Laura Singh HTN (hypertension) I 10 [...] Notes * LIZZETH TORIBIOB:1960 (65 yo F)Acc No.[id number]:11/20/2024 Progress Notes Patient: COLLINS BRITT Provider: RUPA Gill :1960 A ge:64 Y S ex:Female Date:11/20/2024 Address:[facility] [id number] Pcp:Ester Michael Subjective: [...] eight loss - R63.4 4 . B PA 45.0-49.9, adult - Z68.42 ? Plan: * [...] G 2211 Complex e/[place], [address] CAPILLARY BLOOD DRAW, [address] GLYCATED HEMOGLOBIN TEST, Modifiers: QW , 3044F HG A1C LEVEL LT 7.0%, 3074F SYST BP LT 130 MM HG, 3079F DIAST BP 80-89 MM HG * Follow Up: 4 Weeks after start of med if approved * Images: Billing Information: * Visit Code: 12959 Office Visit, Est Pt., Level 4. * Procedure Codes: G2211 Complex e/[place]. [address] CAPILLARY BLOOD DRAW. 275[address] GLYCATED HEMOGLOBIN TEST. Modifiers: QW 3044F HG A1C LEVEL LT 7.0%. 3074F SYST BP LT 130 MM HG. 3079F DIAST BP 80-89 MM HG. * Electronic signature of Kimi Singh APRN on 05/01/2025 at 10:35 AM EDT Sign off status: Pending * Provider: RUPA Gill Date: 0 11/20/2024 Generated for Katherine dimas/Brenden/Usamaitting on: 0 05/01/2025 10:35 AM EDT History and Physical Notes * HPI [...]
--- OUTSIDE RECORDS SUMMARY | 2025-02-12 06:15 | XMS_ITS ---
Author Organization [facility] Address [address] [place] [id number] Care Team Providers Care Web Content Manager Name Role Phone Ester Michael Primary Care Provider [phone] Rodrigo Funk Unavailable [phone] Laura Singh Unavailable [phone] Allergies No Known Allergies REASON FOR VISIT [...] Provider Diagnosis [facility] [address], [place] [id number] 02/12/2025 Laura Singh BMI 45.0-49.9, adult Z68.42 [...] Notes * LIZZETH TORIBIOB:1960 (65 yo F)Acc No.[id number]:02/12/2025 Progress Notes Patient: COLLINS BRITT Provider: RUPA Gill :1960 A ge:64 Y S ex:Female Date:02/12/2025 Address[id number] Pcp:Ester Michael Subjective: * Chief Complaints: * [...] counseling - Z71.3 (Primary) 2 . B ID 45.0-49.9, adult - Z68.42 3 . T [...] * Images: Billing Information: * Visit Code: 08913 Office Visit, Est Pt., Level 3. * [...] 0 02/12/2025 Generated for Katherine dimas/Brenden/Usamaitting on: 0 05/01/2025 [...]
--- OUTSIDE RECORDS SUMMARY | 2025-04-16 05:30 | XMS_ITS ---
[facility] Organization [facility] Address [address] [facility] [address] [place] [id number] Care Team Providers Care Hip Hop Artist Name Role Phone Fernanda, Ester Guerrero Primary Care Provider Rodrigo Funk Unavailable [phone] Laura Singh Unavailable [phone] Allergies No Known Allergies Results Component Value [...] Interpretation: Performing Lab: Notes/Report: Test performed by [facility] [address] [place] [address] , [address], [place] [address] Dalton Jonas MD, Entry Level Civil Engineer CLIA: [id number] Sodium 142 135-145 mmol/L Potassium 4.6 3.5-5.3 [...] 90 Performing Lab: Notes/Report: Test performed by [facility], [address] , [place] [address] Dalton Jonas MD, Entry Level Civil Engineer CLIA: [id number] Cholesterol 143 <200 mg/dL Triglycerides 90 <150 [...] Results: 60 Units: mg/dL % Change: +5% REASON FOR VISIT 2 months, Needs labs, [...] HCl 50 MG Take 1 tablet by [facility] once daily Active Vitamin D3 500 1 CAP(S) ORALLY ONCE A DAY 02/14/2015 Active Vitamin B-12 1000 MCG 1 tab(s) orally on day 02/14/2015 Active Vital Signs Blood pressure systolic 120 mm Hg 04/16/20 25 Blood pressure diastolic 70 mm Hg 025 Heart Rate 60 /min 04/16/2025 Height 61 in 04/16/2025 Weight 229.6 lbs 04/16/2025 BMI 43.38 kg/m2 04/16/2025 Encounters Encounter Location Date Provider Diagnosis [facility] [address] [place], [place] [phone] 04/16/2025 Laura Singh Weight loss counseli judie, encounter for Z71.3 ; Breast cancer screening [...] HCl 50 MG Take 1 tablet by [facility] once daily Treatment Notes Assessment Notes Weight loss counseling, encounter for in creased dose. monitor for any GI symptoms. discussed current diet and exercvise Breast cancer screening Has hx of mass i n left breast Gastroesophageal reflux dise ase, esophagitis presence not specified reviewed labs w/ patient. continue meds Hyperglycemia A1C is better. cont Ozempic, portion control, exercising, and water intake. Pending Test Test Name Order Date Mammogram 04/16/2025 Next Appt Details Follow Up: 4 Months,and prn, Reason: Progress Notes * NYA TORIBIOADOB:1960 (65 yo F)Acc No.[id number]:04/16/2025 Progress Notes Patient: COLLINS BRITT Provider: RUPA Gill :1960 A ge:65 Y S ex:Female Date:04/16/2025 Address[address], [place], [id number] Pcp:Ester Michael Subjective: * Chief Complaints: * [...] H yperglycemia - R73.9 7 . B [place] 45.0-49.9, adult - Z68.42 Plan: * Treatment: 2. B reast cancer screening I maging: Mammogram Notes: Has hx of mass in left [...] Zina Newton 04/16/2025 10:56 :44 AM EDT >Francisco Laura 04/17/2025 09:14:05 AM EDT >I spoke with [...] G 2211 Complex e/[place], [address] CBC WITH AUTO DIFF, 59244 GLYCATED HEMOGLOBIN TEST, Modifiers: QW , 3044F HG A1C LEVEL LT 7.0%, 1036F TOBACCO NON-USER, G8783 BP SCR PRFRM RCMDD DEFIND SCR INTVL, G8752 MOST RECENT SYSTOLIC BP < 140MM HG, G8754 MOST RECENT DIASTOLIC BP < 90MM HG, G8431 CLIN DEPRESSION SCREEN DOC positive * Follow Up: 4 Months,and prn * Images: Billing Information: * Visit Code: 47370 Office Visit, Est Pt., Level 4. * Procedure Codes: G2211 Complex e/[place]. [address] CBC WITH AUTO DIFF. 99701 GLYCATED HEMOGLOBIN TEST. Modifiers: QW 3044F HG A1C LEVEL LT 7.0%. 1036F TOBACCO NON-USER. G8783 BP SCR PRFRM RCMDD DEFIND SCR INTVL. G8752 MOST RECENT SYSTOLIC BP < 140MM HG. G8754 MOST RECENT DIASTOLIC BP < 90MM HG. G8431 CLIN DEPRESSION SCREEN DOC positive. * Electronic signature of Kimi Singh APRN on 05/01/2025 at 10:34 AM EDT Sign off status: Pending * Provider: RUPA Gill Date: 04/16/2025 Generated for Katherine dimas/Brenden/Kelly on: 05/01/2025 10:34 AM EDT History and Physical Notes * [...]
--- NOTE | 2025-05-01 10:35 | MM_ITS ---
PROCEDURE INFORMATION: Exam: MG Bilateral Screening 3D Mammography Exam date and time: 05/01/2025 10:44 AM Age: 65 years old Clinical indication: Screening examination TECHNIQUE: Imaging protocol: Bilateral Screening tomosynthesis and 2D mammography including computer-aided detection (CAD) when performed. COMPARISON: 1. MG MM DIG SCREENING MAMM BI W/CAD 04/23/2022 10:29 AM 2. MG MM DIG MAMM DX UNILAT LT CAD 06/05/2019 3:30 PM FINDINGS: MAMMOGRAPHY: Breast composition: There are scattered areas of fibroglandular density. Mass: None. Architectural distortion: None. Calcifications: No suspicious calcifications. Asymmetric density: None. Skin thickening: None. Axillary adenopathy: None. IMPRESSION: No mammographic evidence of malignancy. Annual screening is recommended unless otherwise clinically indicated. ASSESSMENT: BI-RADS Category 1: Negative.
--- OUTSIDE RECORDS SUMMARY | 2025-05-01 10:35 | XMS_ITS | Clinical Summary ---
Author Organization [facility] Address [address] [place] [address] Care Team Providers Care Innovation Manager Name Role Phone Asher Funk MD Primary Care Provider [phone] Allergies No known active allergies Medications cyanocobalamin (Vitamin B-12) 1000 MCG tablet Take 1 tablet (1,000 mcg) by mouth 1 (one) time each day. Active cholecalciferol (Vitamin D-3) 10 MCG (400 UNIT) capsule Take by mouth 1 (one) time each day. Active Multiple Vitamin (multivitamin) tablet Take 1 tablet by mouth 1 (one) time each day. Active Ascorbic Acid (vitamin C) 250 MG tablet Take 1 tablet (250 mg) by mouth 1 (one) time each day. Active famotidine (Pepcid) 40 MG tablet Take by mouth 1 (one) time each day. Active lisinopril 10 MG tablet Take 1 tablet (10 mg) by mouth 1 (one) time each day. Active sertraline (Zoloft) 50 MG tablet Take 1 tablet (50 mg) by mouth 1 (one) time each day. Active pravastatin (Pravachol) 40 MG tablet Take 1 tablet (40 mg) by mouth every night. Active metoclopramide (Reglan) 5 MG/5ML solution Take by mouth 4 (four) times a day (before meals and nightly). Active pantoprazole (Protonix) 40 MG EC tablet Take 1 tablet (40 mg) by mouth 1 (one) time each day. 06/06/2024 Active ondansetron (Zofran) 4 MG tablet Take 1 tablet (4 mg) by mouth 1 (one) time each day. 08/05/2024 Active cyclobenzaprine (Flexeril) 10 MG tablet 1 tablet at bedtime as needed Orally tid prn 08/07/2024 Active Family History Medical History Relation Name Comments Diabetes Father Hypertension Father Dementia Mother Relation Name Status Comments Father Alive Mother Social History Tobacco Use Types Packs/Day Years Used Date Smoking Tobacco: Former Cigarettes Passive Smoke Exposure: Past Smokeless Tobacco: Never Tobacco Cessation:Counseling Given: Not Answered Alcohol Use Standard Drinks/Week Comments Never 0 (1 standard drink = 0.6 oz pur e alcohol) PHQ-2 Answer Date Recorded Patient Health Questionnaire-2 Score 0 08/14/2024 Comments Unknown Sex and Gender Information Value Date Recorded Sex Assigned at Not on file Legal Sex Female 6:30 PM EDT Gender Identity Not on file Sexual Orientation Not on file Last Filed Vital Signs Vital Sign Reading Time Taken Comments Blood Pressure 118/67 08/14/2024 1:51 PM EST Pulse 77 08/14/2024 1:51 PM EST Temperature 36.7 C (98.1 F) 08/14/2024 1:51 PM EST Respiratory Rate - - Oxygen Saturation 97% 08/14/2024 1:51 PM EST Inhaled Oxygen Concentration - - Weight 106 kg (234 lb) 08/14/2024 1:51 PM EST Height 157.5 cm (5' 2 ) 08/14/2024 1:51 PM EST Body Mass Index 42.8 08/14/2024 1:51 PM EST Plan of Treatment Health Maintenance Due Date Last Done Comments [facility]-Bone Density Scan 1960 [facility]-Hepatitis C Screening 1960 [facility]Medicare Annual Wellness (AWV) 1960 [facility]-/Child/Adol SDOH Screenings 1960 [facility]- SDOH Screenings 1977 [facility]-Adult SDOH Screenings 1977 CT Colonography 02/18/2004 Colonoscopy 02/18/2004 FIT 02/18/2004 FOBT 02/18/2004 Sigmoidoscopy 02/18/2004 [facility]-Breast Cancer Screening 2009 [facility]-Zoster Vaccines (1 of 2) 2009 [facility]-Pneumococcal Vaccine: 50 + Years (2 of 2 - PCV) 01/19/2019 01/19/2018 [facility]-RSV Vaccine: 60+ Years o r (1 - Risk 60-74 years 1-dose series) 2019 [id number] Vaccine ( season) 2024 08/22/2021, 01/03/2021, 11/29/2020 [facility]-Influenza Vaccine (#1) 2025 11/05/2018 [facility]-Depression Screening 08/14/2025 08/14/2024 [facility]-DNA 05/31/2026 05/31/2023 [facility]-Colorectal Cancer Screening 05/31/2026 [facility]-DTaP,Tdap,and Td Vaccine s (2 - Td or Tdap) 01/20/2028 01/19/2018 [facility]-Obesity Intervention Completed 024, 07/13/2022 HPV Vaccines Aged Out No longer eligi ble based on patient's age to complete this topic [facility]-HIB Vaccines Aged Out No longer e ligible based on patient's age to complete this topic [facility]-Hepatitis A Vaccines Aged Out No longer eligible based on patient's age to complete this topic [facility]-IPV Vaccines Aged Out No longer e ligible based on patient's age to complete this topic [facility]-Rotavirus Vaccines Aged Out No lo nger eligible based on patient's age to complete this topic Insurance [facility] [place] [id number] Care Teams Innovation Manager Relationship Specialty Start Date End Date Asher Funk MD [address] [place] [address] PCP - General 07/13/22
--- OUTSIDE RECORDS SUMMARY | 2025-05-01 10:35 | XMS_ITS | Encounter Summary ---
Author Organization [facility] ([place], [place], [place], [place]) Address [address] [place] [id number] Care Team Providers Care Roofing Superintendent Name Role Phone Unavailable Primary Care Provider Unavailabl e Encounter Details Date Type Department Care Team (Late st Contact Info) Description 10/13/2019 Transcribed Document [facility] Family Medicine [address] [place] [address] ProviderCatherine MD [address] [place] [address] Social History Tobacco Use Types Packs/Day Years Used Date Smoking Tobacco: Never Assessed Comments Unknown Sex and Gender Information Value Date Recorded Sex Assigned at Female 03/10/2022 7:49 PM CDT Legal Sex Female 7:49 PM CDT Gender Identity Female 03/10/2022 7:49 PM CDT Sexual Orientation Not on file documented as of this encounter Miscellaneous Notes * Cerner Conversion Note - Historical ProviderMD - 10/13/2019 3:26 AM WINDOWS ARCHITECT Electronically signed by [facility] Conversion Blasting Gang Miner Cerner at 12/31/2022 1:38 PM CDT documented in this encounter Plan of Treatment Not on file documented as of this encounter Visit Diagnoses Not on filedocumented in this encounter
--- OUTSIDE RECORDS SUMMARY | 2025-05-01 10:35 | XMS_ITS | Encounter Summary ---
Author Organization [employer] ([place], [place], [place], [place]) Address [address] [place] [address] Care Team Providers Care Burlesque Dancer Name Role Phone Unavailable Primary Care Provider Unavailabl e Encounter Details Date Type Department Care Team (Late st Contact Info) Description 10/13/[address] [facility] [place] Family Medicine [address] [place] [address] ProviderCatherine MD [facility] [place] [address] Social History Tobacco Use Types Packs/Day Years Used Date Smoking Tobacco: Never Assessed Comments Unknown Sex and Gender Information Value Date Recorded Sex Assigned at Female 03/10/2022 7:49 PM CDT Legal Sex Female 7:49 PM CDT Gender Identity Female 03/10/2022 7:49 PM CDT Sexual Orientation Not on file documented as of this encounter Miscellaneous Notes * Cerner Conversion Note - Catherine ProviderMD - 10/13/2019 3:42 AM SERVICE PARTS DRIVER [address] [place] [address] PERSON INFORMATION Name SHAYY TORIBIO Age 59 Years 1960 Sex Female Language PCP ECHO CHEN MD-ORT Marital Status Single Med Service Emergency Medicine Acct# Arrival 10/12/2019 22:47:00 Visit Reason Lower leg pain-swelling; POSSIBLE LEFT KNEE BAKERS CYST RUPTURE Acuity 4 - Non - Urgent LOS 000 04:55 Depart Date: 00:00 AM Address: [place] [address] Comment: PROVIDER INFORMATION Provider Role Assigned Unassigned Bev Kamara, CURING MACHINE OPERATOR Nurse 10/13/2019 00:34:57 MALOU SHUKLA DO ED Physician 10/13/2019 01:15:04 DIAGNOSIS Knee pain; Leg pain PHYS DOC NOTES VITALS INFORMATION Vital Sign Triage Latest Temp Source Tympanic Oral Temp Mode Fahrenheit Fahrenheit Temp Fahrenheit 98.4 Deg F 98.1 Deg F Temp Celsius 02 Sat 97 % 97 % Respiratory Rate 18 Breaths/Min 16 Breaths/Min Peripheral Pulse Rate 66 bpm 66 bpm Apical Heart Rate Blood Pressure 154 mmHg / 85 mmHg 144 mmHg / 83 mmHg Comment: MEDICAL INFORMATION Allergy Info: No Known Medication Allergies Medications: Comment: DISCHARGE INFORMATION Discharge Disposition: Discharge Location: PATIENT EDUCATION INFORMATION Instructions: Knee Pain, Adult, Bseo-[id number] Follow up: With: Address: When: ECHO CHEN [address] [place] [address], [address] [place] [id number] [facility] (1) Within 2 to 3 days Comments: Follow-up with the bone doctor as soon as possible regarding knee pain. Discuss with the bone doctor to obtain outpatient MRI of your knee to make sure there is no cartilage or ligament damage. Return at once for any worsening conditions. Comment: Electronically signed by Jeremiah Christianson Conversion Plant Operations Manager Cerner at 12/31/2022 1:30 PM CDT documented in this encounter Plan of Treatment Not on file documented as of this encounter Visit Diagnoses Not on filedocumented in this encounter
--- OUTSIDE RECORDS SUMMARY | 2025-05-01 10:35 | XMS_ITS | Encounter Summary ---
Author Organization [employer] [employer] ([place], [place], [place], [place]) Address [address] [place] [address] Care Team Providers Care Teletypist Name Role Phone Unavailable Primary Care Provider Unavailabl e Encounter Details Date Type Department Care Team (Late st Contact Info) Description 10/13/2019 Transcribed Document [facility] [place] [address] [place] [address] ProviderCatherine MD [address] [place] [address] Social History Tobacco Use Types Packs/Day Years Used Date Smoking Tobacco: Never Assessed Comments Unknown Sex and Gender Information Value Date Recorded Sex Assigned at Female 03/10/2022 7:49 PM CDT Legal Sex Female 7:49 PM CDT Gender Identity Female 03/10/2022 7:49 PM CDT Sexual Orientation Not on file documented as of this encounter Miscellaneous Notes * Cerner Conversion Note - Catherine Oleary MD - 10/13/2019 3:41 [place] [address] SHAYY TORIBIO :1960 Visit Time:10/12/2019 Your Visit Summary Your Care Team Primary Provider: MALOU SHUKLA Secondary Provider: Your Diagnosis Knee pain Leg pain Lower leg pain-swelling Medical Information You may obtain a copy of your Emergency Department visit from Medical Records by calling the hospital phone number listed above and asking to be directed to the Medical Records Department. If you had special tests, such as EKG???s or X-rays, the interpretation of your tests given to you by the Emergency Department Physician is a preliminary report. Some fractures and illnesses fail to show up on preliminary tests. These will be reviewed again and we will call you if there are any new suggestions. If your symptoms continue notify your physician. After you leave, you should follow the instructions provided. What to do next Follow-Up Appointments Follow Up with ECHO CHEN When Within 2 to 3 days Comments Follow-up with the bone doctor as soon as possible regarding knee pain. Discuss with the bone doctor to obtain outpatient MRI of your knee to make sure there is no cartilage or ligament damage. Return at once for any worsening conditions. Where: [address] [facility] [address] [place] [address]- Business (1) Allergies No Known Medication Allergies Immunizations This Visit No Immunizations Found Medications What How Much When Instructions Next Dose New acetaminophen-hydrocodone ([place] 5 mg-325 mg oral tablet) 1 Tablet(s) Oral Every 6 Hours as needed for for pain Printed Prescription The home medications listed are only as accurate as the information you provided. Please continue taking all of your medications prescribed by your Primary Care Provider unless specifically told to change or discontinue the medication. Please direct any questions regarding your home medications to your Primary Care Provider. Take your medications faithfully. Do NOT skip medication. Do NOT stop taking medications without the direction of a physician. Carry a list of your medications with you at all times, and take this medication list with you to your first follow up visit. Report any side effects. Avoid herbal remedies unless discussed with your physician. As part of your treatment plan, your physician may have prescribed a limited course of a controlled substance. This medication may be given to help people with moderate or severe pain or for other medical conditions, but there are risks involved with treatment. Common side effects may include nausea, constipation, drowsiness, sweating, itching, dry mouth, and rash. More serious side effects may include cognitive and motor impairment, like problems with thinking, concentrating, alertness, and movement (e.g. slowed reflexes), and driving and operating heavy machinery can be dangerous. It is important for you to talk to your physician if you have these side effects or questions. These controlled substances can produce physical dependence and be habit-forming if taken for an extended period of time, which means that the body has gotten used to them and may experience withdrawal symptoms if they are abruptly stopped. Withdrawal symptoms can include runny nose, sweating, goose bumps, diarrhea, abdominal cramping, rapid heartbeat, difficulty sleeping, and nervousness. Please dispose of unused and medications per pharmacy guidance. Test Results Laboratory or Other Results This Visit (last charted value for your 10/12/2019 visit) No Laboratory or Other Results This Visit Education Materials Knee Pain, Adult Many things can cause knee pain. The pain often goes away on its own with time and rest. If the pain does not go away, tests may be done to find out what is causing the pain. Follow these instructions at home: Activity ??? Rest your knee. ??? Do not do things that cause pain. ??? Avoid activities where both feet leave the ground at the same time (high-impact activities). Examples are running, jumping rope, and doing jumping jacks. General instructions ??? Take medicines only as told by your doctor. ??? Raise (elevate) your knee when you are resting. Make sure your knee is higher than your heart. ??? Sleep with a pillow under your knee. ??? If told, put ice on the knee: ? Put ice in a plastic bag. ? Place a towel between your skin and the bag. ? Leave the ice on for 20 minutes, 2???3 times a day. ??? Ask your doctor if you should wear an elastic knee support. ??? Lose weight if you are overweight. Being overweight can make your knee hurt more. ??? Do not use any tobacco products. These include cigarettes, chewing tobacco, or electronic cigarettes. If you need help quitting, ask your doctor. Smoking may slow down healing. Contact a doctor if: ??? The pain does not stop. ??? The pain changes or gets worse. ??? You have a fever along with knee pain. ??? Your knee gives out or locks up. ??? Your knee swells, and becomes worse. Get help right away if: ??? Your knee feels warm. ??? You cannot move your knee. ??? You have very bad knee pain. ??? You have chest pain. ??? You have trouble breathing. Summary ??? Many things can cause knee pain. The pain often goes away on its own with time and rest. ??? Avoid activities that put stress on your knee. These include running and jumping rope. ??? Get help right away if you cannot move your knee, or if your knee feels warm, or if you have trouble breathing. This information is not intended to replace advice given to you by your health care provider. Make sure you discuss any questions you have with your health care provider. Document Released: 11/26/2009 Document Revised: 08/24/2017 Document Reviewed: 08/24/2017 [employer] Interactive Patient Education ?? 2019 [employer]. Emergency Awareness and Preventative Care STROKE is an EMERGENCY Every Minute Counts Act FAST and Check for these signs: FACE Does the face look uneven? ARM Does one arm drift down? SPEECH Does their speech sound strange? TIME Call at any sign of stroke Stroke Risk Factors Atrial Fibrillation (irregular heartbeat) Diabetes Family history of stroke Heart Disease Heavy alcohol use High Blood Pressure High Cholesterol Physical inactivity and obesity Smoking Cigarette Smoking The facts are clear, cigarette smoking will shorten your life. Smoking can cause many illnesses along the way. As a healthcare provider, we recommend that you stop smoking. Assistance with quitting is available by contacting 9-945-GJAU-NOW. This is a free resource providing counseling, support, and referral. Or you may contact your personal physician. National Suicide Prevention Lifeline: The National Suicide Prevention Lifeline is a national network of local crisis centers that provides free and confidential emotional support to people in suicidal crisis or emotional distress 24 hours a day, 7 days a week. Don't Wait! Stop a Heart Attack Before it Starts What is a heart attack? A heart attack is damage or to a part of the heart from severely decreased or lack of blood flow to the heart. Over time, arteries can become narrow from the buildup of fat and cholesterol, which is called plaque. The plaque can rupture causing a blood clot to form. When the blood clot forms, the artery can become severely narrowed or completely blocked, causing a heart attack. Heart attack is the leading cause of in the [place]. 85% of muscle damage occurs within the first 2 hours. Delay in the recognition of heart attack symptoms increases the chances of . Know the early symptoms of a heart attack: Nausea Feeling of fullness in chest Jaw Pain Pain that travels down one or both arms Fatigue/being tired Anxiety Back Pain Chest pressure, squeezing, or discomfort Shortness of breath Sweating, or a cold sweat Feeling of impending doom There are unusual signs of a heart attack, too! Women, the elderly, and diabetics may present with atypical symptoms: Fainting/dizziness Weakness Confusion Risk Factors for a Heart Attack Some heart disease risk factors, such as age and family history, cannot be changed. Others, like smoking and lack of exercise, can be changed. Smoking High Cholesterol High Blood Pressure Family History Obesity Age Gender (Males are at higher risk) Lack of Exercise Diabetes Diet Stress Excessive Alcohol Intake If you or someone you know is experiencing the signs and symptoms of a heart attack, DON???T DELAY. Call immediately and seek help. If someone collapses, perform CPR! Do not attempt to drive if you are having symptoms of heart attack. Hands-Only CPR Why Hands-Only CPR? Hands-Only CPR has been shown to be as effective as conventional CPR for cardiac arrests that occur outside of a hospital. Survival depends on immediately receiving CPR from someone nearby. How do you perform Hands-Only CPR? There are two easy steps: Call if you see a teen or adult collapse Push hard and fast in the center of the chest at a beat of 100 beats per minute. Save a life! 4 WAYS TO GET AHEAD OF SEPSIS SEPSIS is a MEDICAL EMERGENCY. Time matters! Infections put you and your family at risk for a life-threatening condition called sepsis. Sepsis is the body's extreme response to an infection. It is life-threatening, and without timely treatment, sepsis can rapidly lead to tissue damage, organ failure, and . Sepsis happens when an infection you already have-in your skin, lungs, urinary tract or somewhere else-triggers a chain reaction throughout your body. 1 PREVENT INFECTIONS Take good care of chronic conditions. Talk to your doctor about getting the recommended vaccines. 2 PRACTICE GOOD HYGIENE Wash your hands frequently. Keep cuts or open sores clean and covered until they are healed. 3 KNOW THE SYMPTOMS Confusion or disorientation Shortness of breath High heart rate Fever, shivering, or feeling very cold Extreme pain or discomfort Clammy or sweaty skin 4 ACT FAST Get medical care IMMEDIATELY if you suspect sepsis or if you have an infection that is not getting better or is getting worse. To learn more about sepsis and how to prevent infections, visit www.cdc.gov/sepsis. The examination and treatment you have received in the Emergency Department has been done to provide an appropriate evaluation and stabilizing treatment on an emergency basis only. Given the limited resources, it is not meant to be a substitute for complete medical care. The follow-up doctor you named will receive a copy of your records and all test reports. IT IS IMPORTANT THAT YOU SCHEDULE A FOLLOW-UP APPOINTMENT AND ARE RE-EVALUATED. You should report any new complaints, symptoms, or remaining problems at that time. IT IS IMPOSSIBLE FOR THE EMERGENCY DEPARTMENT TO RECOGNIZE AND TREAT ALL ELEMENTS OF INJURY OR ILLNESS IN A SINGLE VISIT. If you have been referred to a specialist physician, it means that we believe you may have a condition that requires the expertise of a specialist. These physicians work in partnership with the hospital and have agreed to see referred patients in their office for further evaluation. KEEP IN MIND THAT THE SPECIALIST HAS HIS/HER OWN OFFICE POLICIES WHICH MAY REQUIRE PROPER INSURANCE OR PAYMENT UP FRONT BEFORE THE SPECIALIST WILL SEE YOU. It is your responsibility to call the specialist physician to make an appointment. We do not have the ability to refer patients to specialists/physicians that work with specific insurance companies. Please be advised that all financial charges or billing practices are determined by that practice, not the hospital. If your insurance company requires that you see a specialist from their approved list, it is your responsibility to contact your insurance company to make those arrangements. It is also your responsibility to follow any other requirements of your insurance company necessary to obtain coverage for claims submitted. We will bill your insurance; however, you are responsible today for any co-pay amounts. You will receive a separate bill for any services you may have received including: emergency, radiology, or pathology physicians. Patient Name:SHAYY TORIBIO I have received this information and was given the opportunity to ask questions. Patient/Fabrication Machine Operator Name: Patient/Fabrication Machine Operator Signature: Relationship to Patient: Clinician/Hospital Fabrication Machine Operator Signature: Please Provide a Telephone Number Where You Can Be Reached: Is it Permissible To Leave a Message? Date: documented in this encounter Plan of Treatment Not on file documented as of this encounter Visit Diagnoses Not on filedocumented in this encounter
--- OUTSIDE RECORDS SUMMARY | 2025-05-01 10:35 | XMS_ITS | Encounter Summary ---
Author Organization [employer] ([place], [place], [place], [place]) Address [address] [place] [address] Care Team Providers Care Pheresis Nurse Name Role Phone Unavailable Primary Care Provider Unavailabl e Encounter Details Date Type Department Care Team (Late st Contact Info) Description 10/13/2019 Transcribed Document [facility] [place] [facility] [address] [place] [address] ProviderCatherine MD [address] [place] [address] Social History Tobacco Use Types [...] Conversion Note - Historical ProviderMD - 10/13/2019 3:42 AM METAL MOCKUP MAKER ED Discharge Entered On: 10/13/2019 3:42 EST Performed On: 10/13/2019 3:42 EST by Bev Kamara RN Discharge Process Patient Disposition : Discharge Personal Belongings With Patient : Yes Patient Education Completed : Yes Teaching Evaluation : Verbalizes understanding IV Discontinued : Not applicable Nursing Documentation Completed : Yes Bev Kamara RN - 10/13/2019 3:42 EST ED Discharge Discharge To : Home with ambulatory/outpatient follow-up Mode Of Departure : Ambulatory Accompanied By : Spouse Discharge Instructions Reviewed With, Opportunity For Questions Given : Patient, Spouse Prescriptions Given to Patient : Yes Medications Given to Patient : No Bev Kamara RN - 10/13/2019 3:42 EST Electronically signed by Meghan [facility] Conversion Stitchdown Thread Laster Cerner at 12/31/2022 1:13 PM CDT documented in this encounter Plan of Treatment Not on file documented as of this encounter Visit Diagnoses Not on filedocumented in this encounter
--- OUTSIDE RECORDS SUMMARY | 2025-05-01 10:35 | XMS_ITS | Encounter Summary ---
Author Organization [employer] ([place], [place], [place], [place]) Address [address] [place] [address] Care Team Providers Care Heater Room Helper Name Role Phone Unavailable Primary Care Provider Unavailabl e Encounter Details Date Type Department Care Team (Late st Contact Info) Description 10/13/[address] [facility] [place] [facility] [address] ProviderCatherine MD [address] [place] [address] Social History Tobacco Use Types [...] Conversion Note - Historical ProviderMD - 10/13/2019 1:36 AM HEATER ROOM HELPER Patient: SHAYY TORIBIO Age: 59 years Sex: Female : 1960 Associated Diagnoses: Lower leg pain-swelling; Leg pain; Knee pain Author: MALOU WINTER DO Basic Information Time seen: Date & time 10/13/2019 01:36:00. Additional information: Chief Complaint from Nursing Triage Note : Chief Complaint 10/12/2019 23:14 EST Chief Complaint Pt. co left lower leg pain that began after feeling a POP to back of leg. at around 6 pm. Pt is calm alert skin pwd. Pt reports pain worse with standing. . History of Present Illness 59year-old female patient with chief complaint of left knee pain. Patient states on Wednesday she was at work. She states she stood up and had sudden onset of pain near the left calf and left knee. Patient saw her primary care doctor today. She states outpatient Doppler and x-ray was performed today. Patient states she was told she had a Hernandez's cyst. Patient is unaware of ultrasound was negative for DVT. She states x-ray showed something floating . Patient has follow-up appointment with ortho on oct 23. She states she came to the ER this morning because when she was at home she heard a pop to her left knee when she walked up some steps. Patient admits to pain near the left popliteal space and left calf.. Admits to history of right total knee replacement performed by Dr. Chen last year.. Review of Systems Constitutional symptoms: Negative except as documented in HPI. Skin symptoms: Negative except as documented in HPI. Eye symptoms: Negative except as documented in HPI. ENMT symptoms: Negative except as documented in HPI. Respiratory symptoms: Negative except as documented in HPI. Cardiovascular symptoms: Negative except as documented in HPI. Gastrointestinal symptoms: Negative except as documented in HPI. Genitourinary symptoms: Negative except as documented in HPI. Musculoskeletal symptoms: Negative except as documented in HPI. Neurologic symptoms: Negative except as documented in HPI. Psychiatric symptoms: Negative except as documented in HPI. Health Status Allergies: Allergic Reactions (Selected) No Known Medication Allergies. Medications: (Selected) Documented Medications Documented MethylPREDNISolone Dose Pack 4 mg oral tablet: 1 Packet, Oral, 1-Time, for 6 Day(s), as directed on package labeling, 21 Tab, 0 Refill(s) hydroCHLOROthiazide 25 mg oral tablet: 0 Refill(s) lisinopril 10 mg oral tablet: 0 Refill(s) pantoprazole 40 mg oral delayed release tablet: 0 Refill(s) pravastatin 20 mg oral tablet: 0 Refill(s) sertraline 50 mg oral tablet: 0 Refill(s). Past Medical/ Family/ Social History Medical history Reviewed as documented in chart. Surgical history: No active procedure history items have been selected or recorded., Reviewed as documented in chart. Family history: No family history items have been selected or recorded., Reviewed as documented in chart. Social history: Social & Psychosocial Habits Alcohol 10/12/2019 Alcohol Use History, Social Habits No Substance Abuse 10/12/2019 Recreational Drug Use History No Recreational Drug Use Last 12 Months No Tobacco 10/12/2019 Smoking Status Never (less than 100 in l , Reviewed as documented in chart. Problem list: Active Problems (1) HTN (hypertension) , per nurse's notes. Physical Examination Vital Signs Time: 06/24/2015 14:28:00. Vital Signs/Vital Measures 10/12/2019 23:14 EST Systolic Blood Pressure 154 mmHg HI Diastolic Blood Pressure 85 mmHg Temperature Source Tympanic Temperature Mode Fahrenheit Temperature, Fahrenheit 98.4 Deg F Clinical Temperature, C 36.9 Deg C Peripheral Pulse Rate 66 bpm Respiratory Rate 18 Breaths/Min Oxygen Saturation 97 % Oxygen Therapy Mode Room air . Measurements 10/12/2019 23:14 EST Height Source Measured Height Entry Format [place] Height/Length, GUAMANIAN (ft) 5 ft Height/Length GUAMANIAN 2 Inch CLINICALHEIGHT 157.48 cm [place] Body Weight 49.73 kg Weight Source, ED Critical estimated dosing weight Weight Entry Format [place] Weight Vietnamese lb 235 lb CLINICALWEIGHT 106.82 kg Body Surface Area (BSA) 2.05 m2 Body Mass Index 43.1 kg/m2 >HHI . Oxygen Saturation 10/12/2019 23:14 EST Oxygen Saturation 97 % . General: Alert. Head: Normocephalic, atraumatic. Eye: Pupils are equal, round and reactive to light, intact accommodation, extraocular movements are intact. Ears, nose, mouth and throat: Tympanic membranes clear. Cardiovascular: Regular rate and rhythm. Respiratory: Lungs are clear to auscultation. Gastrointestinal: Soft, Nontender. Genitourinary Back: Nontender. Musculoskeletal: Normal ROM, Request tenderness left popliteal space. Localized tenderness left calf. Bedside Doppler ultrasound reveals pulses to the left posterior tibialis, left dorsalis pedis, and left popliteal artery. Neurological: No focal neurological deficit observed. Psychiatric: Cooperative. Medical Decision Making Radiology results: Preliminary Report NAME: SHAYY TORIBIOO.B. / SEX: 1960 / Female MRN / ACC#: [id number] / [id number] ORDERING PHYSICIAN: Malou Winter MD, EXAM REQUESTED: [id number] SCAN EXT VEIN UNILATERAL LEFT LEG FACILITY: [facility] DATE: 10/13/2019 RADIOLOGIST NAME: Baldo Cliff CLINICAL HISTORY: . LLE PAIN SINCE HEARING POP BEHIND KNEE AT 1800. CONCERN FOR RUPTURED HERNANDEZ'S CYST. FINDINGS: Negative for deep venous thrombosis of the left lower extremity - normal venous phasicity, augmentation and compressibility. 4 cm popliteal fossa Hernandez cyst noted.. Notes: Left lower extremity is neurocascularly intact. Patient has tenderness to the left popliteal space and left calf. It is difficult for the patient to flex and extend his left knee., Medical records obtained from [facility]. X-ray of the left knee reveals osteoarthritis with possible small loose body in the intercondylar region. [facility] does not have official ultrasound results. Therefore ultrasound was paged to rule out DVT of the left lower extremity., Patient has a walker at home., Luis is negative. Request # : [id number]. Reexamination/ Reevaluation Time: 10/13/2019 03:22:00 . Vital signs results included from flowsheet : Vital Measurements 10/13/2019 1:46 EST Systolic Blood Pressure 144 mmHg HI Diastolic Blood Pressure 83 mmHg Mean Arterial Pressure (MAP)-BMDI 108 Temperature Source Oral Temperature Mode Fahrenheit Temperature, Fahrenheit 98.1 Deg F Clinical Temperature, C 36.7 Deg C Heart Rate Monitored 66 bpm Respiratory Rate 16 Breaths/Min Oxygen Saturation 97 % Oxygen Therapy Mode Room air 10/12/2019 23:14 EST Systolic Blood Pressure 154 mmHg HI Diastolic Blood Pressure 85 mmHg Temperature Source Tympanic Temperature Mode Fahrenheit Temperature, Fahrenheit 98.4 Deg F Clinical Temperature, C 36.9 Deg C Peripheral Pulse Rate 66 bpm Respiratory Rate 18 Breaths/Min Oxygen Saturation 97 % Oxygen Therapy Mode Room air Course: well controlled. Pain status: decreased. Impression and Plan Diagnosis Complaint of Lower leg pain-swelling - Reason For Visit, Emergency medicine, Medical Leg pain - Discharge, Medical Knee pain - Discharge, Medical Plan Condition: Stable. Disposition: Discharged Admit/Transfer/Discharge: Discharge (Order): Start: 10/13/2019 3:25 EST, Discharge to: Home . Prescriptions: Prescription [facility]: [facility] 5 mg-325 mg oral tablet (Prescribe): 1 Tab, Oral, Q6H, PRN: for pain, 12 Tab, 0 Refill(s) . Patient was given the following educational materials: Knee Pain, Adult, [id number]. Follow up with: [facility] Within 2 to 3 days Follow-up with the bone doctor as soon as possible regarding knee pain. Discuss with the bone doctor to obtain outpatient MRI of your knee to make sure there is no cartilage or ligament damage. Return at once for any worsening conditions.. Counseled: Patient, Regarding diagnosis, Regarding diagnostic results, Regarding treatment plan, Regarding prescription, Patient indicated understanding of instructions. Electronically signed by Jeremiah Christianson Conversion Licensed Nursing Assistant Cerner at 12/31/2022 1:33 PM CDT documented in this encounter Plan of Treatment Not on file documented as of this encounter Visit Diagnoses Not on filedocumented in this encounter
--- OUTSIDE RECORDS SUMMARY | 2025-05-01 10:35 | XMS_ITS | Patient Health Record ---
[facility] Address [address] [facility] [address] [place] [id number] Care Team Providers Care Equipment Tester Name Role Phone Ester Michael Primary Care Provider [phone] Rodrigo Funk Unavailable [phone] Laura Singh Unavailable [phone] Allergies No Known Allergies Results Component Value [...] Interpretation: Performing Lab: Notes/Report: Test performed by [facility], [facility] [address] [place] [address] , [address], [place] [address] Dalton Jonas MD, Front Desk Specialist CLIA: [id number] Sodium 142 135-145 mmol/L Potassium 4.6 3.5-5.3 [...] 90 Performing Lab: Notes/Report: Test performed by [facility], [address] , [facility], [place] [address] Dalton Jonas MD, Front Desk Specialist CLIA: [id number] Cholesterol 143 <200 mg/dL Triglycerides 90 <150 [...] Results: 60 Units: mg/dL % Change: +5% Glycohemoglobin A1c (in hous e) Reviewed date:06/15/2024 05:15:16 PM Interpretation:6.2% Performing Lab: Notes/Report: 6.2% glycohemoglobin 6.2% 5 - 6.5 % Glycohemoglobin A1c (in hous e) Reviewed date:11/20/2024 01:09:56 PM Interpretation:6.4% Performing Lab: Notes/Report: 6.4% glycohemoglobin 6.4% 5 - 6.5 % P-Comprehensive Metabolic Pa kathleen (CMP) Reviewed date:11/22/2024 04:36:59 PM Interpretation:gluc 151, Cr 1.4, gfr 42 Performing Lab: Notes/Report: Test performed by [facility] [address] [place] [address] , [address], [place] [address] Dalton Jonas MD, Front Desk Specialist CLIA: [id number] Sodium 139 135-145 mmol/L Potassium 5.2 3.5-5.3 [...] 0.4 <0.2-1.2 mg/dL A/G Ratio 1.8 1.1-2.5 Bone density Reviewed date:02/22/2025 05:22:21 PM Interpretation:Normal Performing Lab: Notes/Report: Normal P-Comprehensive Metabolic Pa kathleen (CMP) Reviewed date:06/11/2024 10:13:49 PM Interpretation:gluc 148, Cr 1.29, gfr 46 Performing Lab: Notes/Report: Test performed by [facility] [address] [place] [address] [place] [address] Dalton Jonas MD, Front Desk Specialist CLIA: [id number] Sodium 139 135-145 mmol/L Potassium 4.8 3.5-5.3 [...] Interpretation:Normal Performing Lab: Notes/Report: Test performed by [facility] [address] [place] [address] , [address], [place] [address] Dalton Jonas MD, Front Desk Specialist CLIA: [id number] Cholesterol 147 <200 mg/dL Triglycerides 108 <150 [...] Results: 57 Units: mg/dL % Change: - Influenza Screen (in house) Reviewed date:10/30/2024 08:12:57 PM Interpretation:pos fluA Performing Lab: Notes/Report: pos fluA results pos fluA Covid test (in house) Reviewed date:10/30/2024 08:12:40 PM Interpretation:neg Performing Lab: Notes/Report: neg Result: neg Medications Medication SIG (Take, Route, Frequency, Duration) Notes Start Date End Date Status Pantoprazole Sodium 40 MG 1 tab(s) orall y once a day 12/11/2022 Active Pravastatin Sodium 40 MG Take 1 tablet b y mouth once daily Active Ozempic (1 MG/DOSE) 4 MG/3ML 1mg Subcuta neous weekly; Duration: 30 days 04/16/2025 Active Cyclobenzaprine HCl 10 MG 1 tablet at be dtime as needed Orally tid prn 08/07/2024 Active Vitamin C 250 MG 1 tab(s) orally once a day; Duration: 30 day(s) Active Lisinopril 10 MG 1 tablet Orally Once a day Active Multivitamin - 1 tab(s) orally once a day; Duration: 30 day(s) Active Sertraline HCl 50 MG Take [address] [facility] once daily Active Vitamin D3 500 1 CAP(S) ORALLY ONCE A DAY 02/14/2015 Active Vitamin B-12 1000 MCG 1 tab(s) orally on ce a day 02/14/2015 Active Immunizations Vaccine Route Administration Date Status Comme nts COVID 19 Pfizer Unknown 11/29/2020 Administered COVID 19 Pfizer Unknown 01/03/2021 Administered COVID 19 Pfizer Unknown 08/22/2021 Administered Flublok IM Intramuscular 11/05/2018 Administered Fluzone High Dose (65yr and older) IM Intramuscular 06/06/2024 Administered Fluzone Quad (6months&older) IM Intramuscular 06/24/2015 Administered Fluzone Quad (6months&older) IM Intramuscular 07/09/2021 Administered PNEUMOVAX 23 VACCINE IM Intramuscular 01/19/2018 Administe red Tetanus Tdap-Adacel (over 7yrs) IM Intramuscular 01/19/2018 Administered Problems Problem Type SNOMED Code ICD Code Onset Dates Problem Status W/U Status Risk Notes Problem Osteoarthrosis (926911126) OSTEOARTHROS NOS-L/LEG (715.96) Active confirmed Problem Type 2 diabetes mellitus (15511223) Type 2 diabetes mellitus (E11.9) Active confirmed Problem Hypertension (86063033) HTN (hypertension) (I10) Active confirmed Problem Vitamin D deficiency (33819442) Vitamin D deficiency (E55.9) Active confirmed Problem Essential hypertension (80997149) Essential hypertension (I10) Active confirmed Problem Body mass index 40+ - severely obese (803860566) BMI 45.0-49.9, adult (Z68.42) Active confirmed Problem Mixed hyperlipidemia (669688610) Mixed hyperlipidemia (E78.2) Active confirmed Problem Loose body in knee (29140500) Loose body in knee, left knee (M23.42) Active confirmed Problem Vaccination given (124836660) Encounter for immunization (Z23) Active confirmed Problem Renal insufficiency (756683227) Renal insufficiency (N28.9) Active confirmed Problem Mammography abnormal (429531391) Abnormal mammogram of left breast (R92.8) Active confirmed Problem Depression (626139965) Depression (F32.9) Active confirmed Problem Neck pain (98407591) Neck pain (M54.2) Active confirmed Problem Gastroesophageal reflux disease (473247072) Gastroesophageal reflux disease, esophagitis presence not specified (K21.9) Active confirmed Problem Verruca vulgaris (83672134) Viral warts, unspecified type (B07.9) Active confirmed Problem Fibrocystic breast changes (38045415) Fibrocystic breast disease (FCBD), unspecified laterality (N60.19) Active confirmed Problem Esophageal dysphagia (64959759) Esophageal dysphagia (R13.10) Active confirmed Vital Signs Heart Rate 60 /min 04/16/2025 Blood pressure diastolic 70 mm Hg 04/16/2025 Height 61 in 04/16/2025 Blood pressure systolic 120 mm Hg 04/16/2025 Weight 229.6 lbs 04/16/2025 BMI 43.38 kg/m2 04/16/2025 Encounters Encounter Location Date Provider Diagnosis [facility] [facility] [address] [place] [id number] 06/06/2024 R Cesar Michael Essential hypertensi on I10 ; Mixed hyperlipidemia E78.2 ; Gastroesophageal reflux disease, esophagitis presence not specified K21.9 and Encounter for immunization Z23 [facility] [facility] [address] [place] [id number] 06/13/2024 R Cesar Michael Elevated glucose lev el R73.09 [facility] [facility] [address] [place] [id number] 08/07/2024 Laura Singh Back pain M54.9 ; Ne ck pain M54.2 and Fall W19.XXXA [facility] [facility] [facility] [address] [place] [id number] 10/30/2024 Laura Singh Influenza A J10.1 an d Cough R05.9 [facility] [address] [facility] [address] [place], [place] [id number] 11/20/2024 Laura Singh HTN (hypertension) I 10 ; Hyperglycemia R73.9 ; Weight loss R63.4 and BMI 45.0-49.9, adult Z68.42 [facility] [address] [facility] [address] [place], [place] [id number] 02/12/2025 Laura Singh BMI 45.0-49.9, adult Z68.42 ; Encounter for weight loss counseling Z71.3 ; Type 2 diabetes mellitus E11.9 and Mixed hyperlipidemia E78.2 [facility] [address] [facility] [address] [place], [place] [id number] 04/16/2025 Laura Singh Weight loss counseli ng, encounter for Z71.3 ; Breast cancer screening Z12.39 ; Mixed hyperlipidemia E78.2 ; Gastroesophageal reflux disease, esophagitis presence not specified K21.9 ; Depression F32.9 ; Hyperglycemia R73.9 and BMI 45.0-49.9, adult Z68.42 [facility] [address] [facility] [address] [place], [place] [id number] 05/29/2024 R Cesar Fernanda [facility] [address] [facility] [address] [place], [place] [id number] 05/29/2024 R Cesar Fernanda [facility] [address] [facility] [address] [place], [place] [id number] 06/11/2024 R Cesar Fernanda [facility] [address] [facility] [address] [place], [place] [id number] 06/15/2024 R Cesar Fernanda [facility] [address] [place], [place] [id number] 11/23/2024 Laura Singh [facility] [address] [facility] [address] [place], [place] [id number] 12/11/2024 Laura Singh BMI 45.0-49.9, adult Z68.42 [facility] [address] [facility] [address] [place], [place] [id number] 01/01/2025 R Cesar Colladot [facility] [address] [place], [place] [id number] 02/12/2025 Laura Singh Encounter for weight loss counseling Z71.3 [facility] [address] [place], [place] [id number] 02/13/2025 R Cesar Jcfleet [facility] [address] [place], [place] [id number] 04/23/2025 R Cesar Jcfleet [facility] [address] [place], [place] [id number] 12/07/2024 Rodrigo Funk Gastroesophageal ref lux disease, esophagitis presence not specified K21.9 [facility] [address] [place], [place] [id number] 12/29/2024 Laura Singh [facility] [address] [place], [place] [id number] 03/07/2025 Rodrigo Funk [facility] [address] [place], [place] [id number] 03/08/2025 Rodrigo Funk Assessments Encounter Date Diagnosis (ICD Code) Assessment Notes Treatment Notes Treatment Clinical Notes Section Notes 06/06/2024 Essential hypertension (ICD-10 - I10) 06/06/2024 Mixed hyperlipidemia (ICD-10 - E78.2) 08/07/2024 Back pain (ICD-10 - M54.9) heat/ cold application; encouraged to use walker ; has appt with [facility] as arranged in the ER 08/15/2024 which she will keep; to continue with tylenol prn; encouraged to curtail activity; cautioned that med will make her sleepy 08/07/2024 Neck pain (ICD-10 - M54.2) 11/20/2024 Hyperglycemia (ICD-10 - R73.9) 11/20/2024 HTN (hypertension) (ICD-10 - I10) 12/07/2024 Gastroesophageal reflux disease, esophagitis presence not specified (ICD-10 - K21.9) 12/11/2024 BMI 45.0-49.9, adult (ICD-10 - Z68.42) 02/12/2025 BMI 45.0-49.9, adult (ICD-10 - Z68.42) 02/12/2025 Encounter for weight loss counseling (ICD-10 - Z71.3) Continue with Ozempic weekly injections, watch food intake, exercise. 02/12/2025 Encounter for weight loss counseling (ICD-10 - Z71.3) 04/16/2025 Breast cancer screening (ICD-10 - Z12.39) Has hx of mass in left breast 04/16/2025 Weight loss counseling, encounter for (ICD-10 - Z71.3) increased dose. monitor for any GI symptoms. discussed current diet and exercvise 10/30/2024 Influenza A (ICD-10 - J10.1) fluids, rest, supportive measures for fever/symptom relief; infectious precautions 10/30/2024 Cough (ICD-10 - R05.9) 04/16/2025 Mixed hyperlipidemia (ICD-10 - E78.2) 02/12/2025 Type 2 diabetes mellitus (ICD-10 - E11.9) 11/20/2024 Weight loss (ICD-10 - R63.4) discussed weight loss plan with healthy foods, portions sizes and exercise 08/07/2024 Fall (ICD-10 - W19.XXXA) 06/06/2024 Gastroesophageal reflux disease, esophagitis presence not specified (ICD-10 - K21.9) 06/13/2024 Elevated glucose level (ICD-10 - R73.09) 06/06/2024 Encounter for immunization (ICD-10 - Z23) 11/20/2024 BMI 45.0-49.9, adult (ICD-10 - Z68.42) 02/12/2025 Mixed hyperlipidemia (ICD-10 - E78.2) 04/16/2025 Gastroesophageal reflux disease, esophagitis presence not specified (ICD-10 - K21.9) reviewed labs w/ patient. continue meds 04/16/2025 Depression (ICD-10 - F32.9) 04/16/2025 Hyperglycemia (ICD-10 - R73.9) A1C is better. cont Ozempic, portion control, exercising, and water intake. 04/16/2025 BMI 45.0-49.9, adult (ICD-10 - Z68.42) Plan Of Treatment Pending Test Test Name Order Date Mammogram 04/16/2025 Insurance Providers Payer Name Payer Address Payer Phone Subscriber Number Group Number Insured Name Patient Relationship to Insured Coverage Start Date Coverage End Date MEDICARE PART B [address] [address] [place] [id number] COLLINS TORIBIO Self - patient is the insured [facility] [address] [place] [address] [id number] COLLINS TORIBIO Self - patient is the insured Medications Administered Medication Instructions Date of Administration Dosage Notes B-12 02/16/2015 1 mL B-12 03/06/2015 1 mL Medical (General) History Medical History History ICD Code Hypertension sleep apnea Vitamin B 12 deficiency Vitamin D deficiency Esophageal reflux hyperlipidemia Covid - Aug 24, 2020 Cologuard negative 11/2022 Surgical History Surgery Date(Month/Year) tonsillectomy knee surgery 07/2005 Total Knee Replacement - Right 12/2015 Hospitalization History Reason Date(Month/Year)
--- OUTSIDE RECORDS SUMMARY | 2025-05-01 10:35 | XMS_ITS | Clinical Summary ---
Author Organization [employer] ([place], [place], [place], [place]) Address [address] [place] [address] Care Team Providers Care Casket Inspector Name Role Phone Unavailable Primary Care Provider Unavailabl e Social History Tobacco Use Types Packs/Day Years Used Date Smoking Tobacco: Never Assessed Comments Unknown Sex and Gender Information Value Date Recorded Sex Assigned at Female 03/10/2022 7:49 PM CDT Legal Sex Female 7:49 PM CDT Gender Identity Female 03/10/2022 7:49 PM CDT Sexual Orientation Not on file Plan of Treatment Not on file
--- OUTSIDE RECORDS SUMMARY | 2025-05-01 10:35 | XMS_ITS | Encounter Summary ---
Author Organization [employer] ([place], [place], [place], [place]) Address [address] [place] [address] Care Team Providers Care Cloth Weaver Name Role Phone Unavailable Primary Care Provider Unavailabl e Encounter Details Date Type Department Care Team (Late st Contact Info) Description 10/12/2019 Transcribed Document [facility] [place] [address] [place] [address] ProviderCatherine MD [address] [place] [address] Social History Tobacco Use Types [...] Cerner Conversion Note - Historical ProviderMD - 10/12/2019 10:48 PM BIRD TRAPPER [place] Suicide Severity Rating Scale (C-SSRS) Entered On: 10/13/2019 0:43 EST Performed On: 10/13/2019 0:42 EST by Bev Kamara RN [place] Suicide Severity Rating Scale (C-SSRS) CSSRS Past Month Wish to be : No CSSRS Past Month Suicidal Thoughts : No CSSRS Lifetime Suicide Behavior : No Suicide Severity Rating Score : 0 Suicide Severity Rating : No Additional Care Required at this time Bev Kamara RN - 10/13/2019 0:42 EST documented in this encounter Plan of Treatment Not on file documented as of this encounter Visit Diagnoses Not on filedocumented in this encounter
--- OUTSIDE RECORDS SUMMARY | 2025-05-01 10:35 | XMS_ITS | Referral Summary ---
Author Organization [employer] ([place], [place], [place], [place]) Address [address] [place] [address] Care Team Providers Care Fruit Checker Name Role Phone Unavailable Primary Care Provider [...]
--- OUTSIDE RECORDS SUMMARY | 2025-05-01 10:36 | XMS_ITS | Encounter Summary ---
Author Organization [employer] ([place], [place], [place], [place]) Address [address] [place] [address] Care Team Providers Care Plywood Patcher Name Role Phone Unavailable Primary Care Provider Unavailabl e Encounter Details Date Type Department Care Team (Late st Contact Info) Description 10/12/2019 Transcribed Document [facility] [place] [address] [place] [address] ProviderCatherine MD [address] [place] [address] Social History Tobacco Use Types [...] - Historical ProviderMD - 10/12/2019 10:48 PM GAS PROCESSING PLANT OPERATOR ED Assessment Entered On: 10/13/2019 0:43 EST Performed On: 10/13/2019 0:42 EST by Bev Kamara RN ED Quick Look Assessment Level of Consciousness : Alert, Awake Affect/Behavior : Appropriate, Calm, Cooperative Orientation : Oriented x 4 Skin Temperature : Warm Skin Description : Normal for ethnicity Bev Kamara RN - 10/13/2019 0:42 EST ED General-Functional Assess Communication Barrier : None Primary Language : Persian Any Spiritual/Cultural Needs or Requests : No Currently in Unsafe Situation : No Bev Kamara RN - 10/13/2019 0:42 EST Social Habits Smoking Status : Never (less than 100 in lifetime; none in last 30 days) Smokeless Tobacco Status : Never Desires Tobacco Cessation Calc : 0 Bev Kamara RN - 10/13/2019 0:42 EST Social History (As Of: 10/13/2019 00:43:21 EST) Tobacco: Never (less than 100 in lifetime) Smoking Status. (Last Updated: 10/12/2019 23:18:02 EST by PETTY PACHECO, RN) Alcohol: Alcohol Use History No. (Last Updated: 10/12/2019 23:18:04 EST by PETTY PACHECO, RN) Substance Abuse: Drug Use Hx: No. Use in Last 12 Months: No. (Last Updated: 10/12/2019 23:18:08 EST by PETTY PACHECO, RN) Respiratory Respiratory Assessment WDL : WDL Cough : None Respiratory Pattern Description : Regular Bev Kamara RN - 10/13/2019 0:42 EST Musculoskeletal Musculoskeletal Assessment WDL : WDL with exceptions (Comment: left lower leg/knee pain/swelling [Bev Kamara RN - 10/13/2019 0:42 EST] ) Bev Kamara RN - 10/13/2019 0:42 EST Integumentary Assessment Skin Description : Normal for ethnicity Skin Temperature : Warm Integumentary Assessment WDL : WDL Skin Turgor : Elastic Bev Kamara RN - 10/13/2019 0:42 EST Neurologic ASMT, ED Neurologic Assessment WDL : WDL Neurological Symptoms : None Level of Consciousness : Alert, Awake Affect/Behavior : Appropriate, Calm, Cooperative Speech : Clear Orientation : Oriented x 4 Pupils Equal, Round, Reactive to Light : Yes Bev Kamara RN - 10/13/2019 0:42 EST Electronically signed by Meghan [facility] Conversion Professor Of Graphic Design Cerner at 12/31/2022 1:16 PM CDT documented in this encounter Plan of Treatment Not on file documented as of this encounter Visit Diagnoses Not on filedocumented in this encounter
--- OUTSIDE RECORDS SUMMARY | 2025-05-01 10:36 | XMS_ITS | Encounter Summary ---
Author Organization [employer] ([place], [place], [place], [place]) Address [address] [place] [address] Care Team Providers Care Electric Engine Mechanic Name Role Phone Unavailable Primary Care Provider Unavailabl e Encounter Details Date Type Department Care Team (Late st Contact Info) Description 10/12/2019 Transcribed Document [facility] [place] Family Medicine [facility] [place] [address] ProviderCatherine MD [address] [place] [address] Social History Tobacco Use Types [...] - Historical ProviderMD - 10/12/2019 10:48 PM OR RN ED Triage Entered On: 10/12/2019 23:17 EST Performed On: 10/12/2019 23:14 EST by PETTY PACHECO RN ED Triage Across the Room Chief Complaint : Pt. co left lower leg pain that began after feeling a POP to back of leg. at around 6 pm. Pt is calm alert skin pwd. Pt reports pain worse with standing. Triage Date/Time : 10/12/2019 23:14 EST PETTY PACHECO RN - 10/12/2019 23:14 EST DCP GENERIC CODE Tracking Acuity : 4 - Non - Urgent Tracking Group : [facility] [place] PETTY PACHECO RN - 10/12/2019 23:14 EST Mode of Arrival : Wheelchair Transported to ED by : Private vehicle To Room Via : Wheelchair Accompanied By : Significant other ED Vital Signs : Document Height & Weight : Document ED Allergies : Document ED Reason for Visit : Document PETTY PACHECO RN - 10/12/2019 23:14 EST Infectious Disease History Physical contact outside [place] in the last 30 days : Unable to obtain Infectious Disease History : Chicken pox/Shingles, Measles, Mumps Tuberculosis Symptoms : None PETTY PACHECO RN - 10/12/2019 23:14 EST Vital Signs ED Temperature Source : Tympanic Temperature Mode : Fahrenheit Temperature, Fahrenheit : 98.4 Deg F ED Pain : Yes Clinical Temperature, C : 36.9 Deg C Oxygen Therapy Mode : Room air Peripheral Pulse Rate : 66 bpm Respiratory Rate : 18 Breaths/Min Systolic Blood Pressure : 154 mmHg (HI) Diastolic Blood Pressure : 85 mmHg Oxygen Saturation : 97 % PETTY PACHECO RN - 10/12/2019 23:14 EST Allergy (As Of: 10/12/2019 23:17:37 EST) Allergies (Active) No Known Medication Allergies Estimated Onset Date: Unspecified ; Created By: PETTY PACHECO RN; Reaction Status: Active ; Category: Drug ; Substance: No Known Medication Allergies ; Type: Allergy ; Updated By: PETTY PACHECO RN; Reviewed Date: 10/12/2019 23:16 EST Diagnosis Control ED (As Of: 10/12/2019 23:17:37 EST) Problems(Active) HTN (hypertension) (SNOMED CT :0856903044 ) Name of Problem: HTN (hypertension) ; Recorder: PETTY PACHECO RN; Confirmation: Confirmed ; Classification: Medical ; Code: [id number] ; Contributor System: Calabrio ; Last Updated: 10/12/2019 23:17 EST ; Life Cycle Date: 10/12/2019 ; Life Cycle Status: Active ; Vocabulary: SNOMED CT Diagnoses(Active) Lower leg pain-swelling Date: 10/12/2019 ; Diagnosis Type: Reason For Visit ; Confirmation: Complaint of ; Clinical Dx: Lower leg pain-swelling ; Classification: Medical ; Clinical Service: Emergency medicine ; Code: PNED ; Probability: 0 ; Diagnosis Code: [id number] ED Height and Weight Height Source : Measured Height Entry Format : [place] Height, Feet : 5 ft(Converted to: 152 cm, 60 Inch) Height, Inches : 2 Inch(Converted to: 0 ft 2 Inch, 5.08 cm) Clinical Height : 157.48 cm Weight Source, ED : Critical estimated dosing weight Weight Entry Format : [place] Weight, Pounds : 235 lb Clinical Dosing Weight : 106.82 kg Body Surface Area (BSA) : 2.05 m2 Body Mass Index : 43.1 kg/m2 (>HHI) Glide Body Weight (IBW) : 49.73 kg PETTY PACHECO RN - 10/12/2019 23:14 EST Pain Assessment Pain Assessment : Initial assessment Pain Scale Used : 0-10 Scale PETTY PACHECO RN - 10/12/2019 23:14 EST Pain Scale Intensity : 8 PETTY PACHECO RN - 10/12/2019 23:14 EST Image 4 - Images currently included in the form version of this document have not been included in the text rendition version of the form. ED Influenza/Pneumoccocal Vaccine Influenza Immunization, Current Season : No Previous Vaccines from Immunization Schedule : No qualifying data available. PETTY PACHECO RN - 10/12/2019 23:14 EST Electronically signed by Jeremiah Christianson Conversion Community Program Assistant Cerner at 12/31/2022 1:33 PM CDT documented in this encounter Plan of Treatment Not on file documented as of this encounter Visit Diagnoses Not on filedocumented in this encounter
== END 2025-05-01 23:59 | disposition home or self-care (01) ==
LOC: RAD 10:33
PROVIDERS: PCP Family Medicine; Visit Provider Nurse Practitioner Family
DX: Z12.31 Encounter for screening mammogram for malignant neoplasm of breast (principal); R92.323 Mammographic fibroglandular density, bilateral breasts
CPT/HCPCS: 77063; 77067

== ENCOUNTER 2025-05-22 11:36 | Emergency (ER) | payer MEDICARE, BC, SELFPAY ==
--- OUTSIDE RECORDS SUMMARY | 2024-08-07 11:00 | XMS_ITS ---
[facility] Address [address] [place] [id number] Care Team Providers Care Home Theatre Technician Name Role Phone Ester Michael Primary Care Provider Rodrigo Funk Unavailable [phone] Laura Singh Unavailable [phone] Allergies No Known Allergies REASON FOR VISIT [facility] F/U ER Medications Medication SIG (Take, [...] W/U Status Risk Notes Problem Neck pain (24312301) Neck pain (M54.2) Active confirmed Vital Signs Blood pressure systolic 110 mm Hg 08/07/20 24 Blood pressure diastolic 70 mm Hg 024 Heart Rate 65 /min 08/07/2024 Height 61 in 08/07/2024 Weight 251.2 lbs 08/07/2024 BMI 47.46 kg/m2 08/07/2024 Encounters Encounter Location Date Provider Diagnosis [facility] [address] [place] [id number] 08/07/2024 Laura Singh Back pain M54.9 ; [...] Notes * LIZZETH TORIBIOB:1960 (65 yo F)Acc No.[id number]:08/07/2024 Progress Notes Patient: COLLINS BRITT Provider: RUPA Gill :1960 A ge:64 Y S ex:Female Date:08/07/2024 Address:[facility] [address], [place] Pcp:Ester Michael Subjective: * Chief Complaints: * 1 . [facility] F/U ER. * HPI: H PI: 64 year old female presents with c/o Here for follow up on:?Pt sts she was at [facility] ER on Wednesday and sts she [...] area on the scan when he looked. [facility] will call patient with appointment for [...] * Vitals: W t:251.2, Temp:98.4, BP:110/70, HR:65, Nurse:[facility], Ht: 61, BMI:47.46. * Examination: G eneral [...] % (Auto) 68.0, Lymph % (Auto) 16.2, Hanson % (Auto) 7.6, Eos % (Auto) 6.6, Baso % (Auto) 1.6, Neut # (Auto) 4.7, Lymph # (Auto) 1.1, Hanson # (Auto) 0.5, Eos # (Auto) 0.5 [...] * Images: Billing Information: * Visit Code: 93895 Office Visit, Est Pt., Level 4. * Procedure Codes: * Electronic signature of Kimi Singh APRN on 05/22/2025 at 12:04 PM EDT Sign off status: Pending * Provider: RUPA Gill Date: 10/07/2023 Generated for Katherine dimas/Brenden/Usamaitting on: 0 05/22/2025 12:04 PM EDT History and Physical Notes * HPI (History of Present Illness) Category Sub-Category Detail Notes Category Not es Lower back fall Previous Injury Low Back Pain on left side some relief with medication sleeping well bowel or bladder dysfunction HPI Here for follow up on: Pt sts sh e was at [facility] ER on Wednesday and sts she [...] area on the scan when he looked. [facility] will call patient with appointment for [...] motion: decreased at termina l ranges LABS [facility] ER lab data: 08/05/24 12:23: WBC 7.0, RBC 5.01, Hgb 14.1, Hct 42.8, MCV 85.3, MCH 28.1, MCHC 32.9, RDW 14.2, Plt Count 257, MPV 8.2, Neut % (Auto) 68.0, Lymph % (Auto) 16.2, Hanson % (Auto) 7.6, Eos % (Auto) 6.6, Baso % (Auto) 1.6, Neut # (Auto) 4.7, Lymph # (Auto) 1.1, Hanson # (Auto) 0.5, Eos # (Auto) 0.5 [...]
--- OUTSIDE RECORDS SUMMARY | 2024-10-30 07:15 | XMS_ITS ---
Author Organization [facility] Address [address] [place] [id number] Care Team Providers Care Data Science And Iot Manager Name Role Phone Ester Michael Primary Care Provider Rodrigo Funk Unavailable [phone] Laura Singh Unavailable [phone] Allergies No Known Allergies Results Component Value [...] CAP(S) ORALLY ONCE A DAY 02/14/2015 Active Kgxvjnebkdkydtr-XQ-TU-APAP 72-26-722-325 MG 1 tablet as needed Orally every [...] 10/30/2024 Encounters Encounter Location Date Provider Diagnosis [facility] [address], [place] [id number] 10/30/2024 Laura Singh Influenza A J10.1 an d Cough R05.9 Assessments Encounter Date Diagnosis (ICD Code) Assessment Notes Treatment Notes Treatment Clinical Notes Section Notes 10/30/2024 Influenza A (ICD-10 - J10.1) fluids, rest, supportive measures for fever/symptom relief; infectious precautions 10/30/2024 Cough (ICD-10 - R05.9) Plan Of Treatment Medication Medication Name Sig Start Date Stop Date Notes Bojrpiwwwasidpm-FW-KR-APAP 13-18-069-325 MG 1 tablet as needed Orally every 4 hrs prn 10/30/2024 Tamiflu 75 MG 1 capsule Orally Twi ce a day; Duration: 5 day(s) 10/30/2024 Treatment Notes Assessment Notes Influenza A fluids, rest, suppor tive measures for fever/symptom relief; infectious precautions Next Appt Details Follow Up: prn, Reason: Progress Notes * JENNIFER TORIBIO:1960 (65 yo F)Acc No.[id number]:10/30/2024 Progress Notes Patient: COLLINS BRITT Provider: RUPA Gill :1960 A ge:64 Y S ex:Female Date:10/30/2024 Address:[place], [id number] Pcp:Ester Michael Subjective: * Chief Complaints: * [...] Plan: * Treatment: 2. C ough Start Ceaztvravwzbjki-XN-JJ-APAP Tablet, 92-12-791-325 MG, 1 tablet as needed, Orally, every [...] G 2211 Complex e/[place] [address] [place] [address] Flu Test- Nasal Swab, Modifiers: QW , [address] COVID TEST IN HOUSE, Modifiers: QW , 3074F SYST BP LT 130 MM HG, 3079F DIAST BP 80-89 MM HG * Follow Up: p rn * Images: Billing Information: * Visit Code: 82681 Office Visit, Est Pt., Level 3. * Procedure Codes: G2211 Complex e/[place] [address] [place] [address] Flu Test- Nasal Swab. Modifiers: QW [address] COVID TEST IN HOUSE. Modifiers: QW 3074F SYST BP LT 130 MM HG. 3079F DIAST BP 80-89 MM HG. * Electronic signature of Kimi Singh APRN on 05/22/2025 at 12:05 PM EDT Sign off status: Pending * Provider: RUPA Gill Date: 0 10/30/2024 Generated for Katherine dimas/Brenden/eTransmitting on: 0 05/22/2025 12:05 PM EDT History and Physical Notes * [...]
--- OUTSIDE RECORDS SUMMARY | 2024-11-20 05:45 | XMS_ITS ---
Author Organization [facility] Address [address] [facility] [address] [place] [id number] Care Team Providers Care Theatrical Dresser Name Role Phone Ester Michael Primary Care Provider [phone] Rodrigo Funk Unavailable [phone] Laura Singh Unavailable [phone] Allergies No Known Allergies Results Component Value Reference Range Notes Glycohemoglobin A1c (in hous e) Reviewed date:11/20/2024 01:09:56 PM Interpretation:6.4% Performing Lab: Notes/Report: 6.4% glycohemoglobin 6.4% 5 - 6.5 % P-Comprehensive Metabolic Pa kathleen (CMP) Reviewed date:11/22/2024 04:36:59 PM Interpretation:gluc 151, Cr 1.4, gfr 42 Performing Lab: Notes/Report: Test performed by [employer] [address] [place] [address] , [address], [place] [address] Dalton Jonas MD, Design Draftsman CLIA: [id number] Sodium 139 135-145 mmol/L Potassium 5.2 3.5-5.3 [...] Status W/U Status Risk Notes Problem Hypertension (99544122) HTN (hypertens ion) (I10) Active confirmed Problem Body mass index 40+ - severely obese (160612908) BMI 45.0-49.9, adult (Z68.42) Active confirmed Vital Signs Blood pressure systolic 120 mm Hg 11/21/19 25 Blood pressure diastolic 80 mm Hg 025 Heart Rate 87 /min 11/20/2024 Height 61 in 11/20/2024 Weight 241.2 lbs 11/20/2024 BMI 45.57 kg/m2 11/20/2024 Encounters Encounter Location Date Provider Diagnosis [facility] [address] [facility] [address] [place] [id number] 11/20/2024 Laura Singh HTN (hypertension) I 10 [...] Notes * LIZZETH TORIBIOB:1960 (65 yo F)Acc No.[id number]:11/20/2024 Progress Notes Patient: COLLINS BRITT Provider: RUPA Gill :1960 A ge:64 Y S ex:Female Date:11/20/2024 Address:[facility] [place] Pcp:Ester Michael Subjective: * [...] eight loss - R63.4 4 . B IA 45.0-49.9, adult - Z68.42 ? Plan: * [...] G 2211 Complex e/[place], [address] CAPILLARY BLOOD DRAW, [address] GLYCATED HEMOGLOBIN TEST, Modifiers: QW , 3044F HG A1C LEVEL LT 7.0%, 3074F SYST BP LT 130 MM HG, 3079F DIAST BP 80-89 MM HG * Follow Up: 4 Weeks after start of med if approved * Images: Billing Information: * Visit Code: 38661 Office Visit, Est Pt., Level 4. * Procedure Codes: G2211 Complex e/[place]. [address] CAPILLARY BLOOD DRAW. [address]84[address] GLYCATED HEMOGLOBIN TEST. Modifiers: QW 3044F HG A1C LEVEL LT 7.0%. 3074F SYST BP LT 130 MM HG. 3079F DIAST BP 80-89 MM HG. * Electronic signature of Kimi Singh APRN on 05/22/2025 at 12:05 PM EDT Sign off status: Pending * Provider: RUPA Gill Date: 0 11/20/2024 Generated for Katherine dimas/Brenden/Usamaitting on: 0 05/22/2025 12:05 PM EDT History [...]
--- OUTSIDE RECORDS SUMMARY | 2025-02-12 06:15 | XMS_ITS ---
Author Organization [facility] Address [address] [place] [id number] Care Team Providers Care Railroad Car Letterer Name Role Phone Ester Michael Primary Care Provider Rodrigo Funk Unavailable [phone] Laura Singh Unavailable [phone] Allergies No Known Allergies REASON FOR VISIT [...] Provider Diagnosis [facility] [address], [place] [id number] 02/12/2025 Laura Singh BMI 45.0-49.9, adult Z68.42 [...] Notes * LIZZETH TORIBIOB:1960 (65 yo F)Acc No.[id number]:02/12/2025 Progress Notes Patient: COLLINS BRITT Provider: RUPA Gill :1960 A ge:64 Y S ex:Female Date:02/12/2025 Address[id number] Pcp:Ester Michael Subjective: * Chief Complaints: * [...] counseling - Z71.3 (Primary) 2 . B IN 45.0-49.9, adult - Z68.42 3 . T [...] * Images: Billing Information: * Visit Code: 38859 Office Visit, Est Pt., Level 3. * [...] 02/12/2025 Generated for Katherine dimas/Brenden/Usamaitting on: 0 05/22/2025 [...]
--- OUTSIDE RECORDS SUMMARY | 2025-04-16 05:30 | XMS_ITS ---
Author Organization [facility] Address [address] [facility] [address] [place] [id number] Care Team Providers Care Classification Counselor Name Role Phone Fernanda, Ester Guerrero Primary Care Provider [phone] Rodrigo Funk Unavailable [phone] Laura Singh Unavailable [phone] Allergies No Known Allergies Results Component Value [...] Interpretation: Performing Lab: Notes/Report: Test performed by [facility] [address] [place] [address] , [address], [place] [address] Dalton Jonas MD, Oil Distributor CLIA: [id number] Sodium 142 135-145 mmol/L Potassium 4.6 3.5-5.3 [...] 90 Performing Lab: Notes/Report: Test performed by [facility], [address] , [place] [address] Dalton Jonas MD, Oil Distributor CLIA: [id number] Cholesterol 143 <200 mg/dL Triglycerides 90 <150 [...] HCl 50 MG Take 1 tablet by [facility] once daily Active Vitamin [...] [address] [place], [place] [id number] 04/16/2025 Laura Singh Weight loss counseli ng, [...] HCl 50 MG Take 1 tablet by [facility] once daily Treatment Notes Assessment Notes Weight [...] Notes * NYA TORIBIOADOB:1960 (65 yo F)Acc No.[id number]:04/16/2025 Progress Notes Patient: COLLINS BRITT Provider: RUPA Gill :1960 A ge:65 Y S ex:Female Date:04/16/2025 Address:[address], [place], [id number] Pcp:Ester Michael Subjective: * Chief Complaints: * [...] H yperglycemia - R73.9 7 . B [place] 45.0-49.9, adult - Z68.42 Plan: * Treatment: 2. B reast cancer screening I maging: Mammogram (Performed Date - 05/01/2025) N egative Value Reference Range r esult Negative * Clementine Magana 04/17/2025 10:58 :55 AM EDT > faxed to [facility] Jovita Cedillo 05/08/2025 02:52:19 PM EDT > [...] G 2211 Complex e/[place], [address] CBC WITH AUTO DIFF, 75770 GLYCATED HEMOGLOBIN TEST, Modifiers: QW , 3044F HG A1C LEVEL LT 7.0%, 1036F TOBACCO NON-USER, G8783 BP SCR PRFRM RCMDD DEFIND SCR INTVL, G8752 MOST RECENT SYSTOLIC BP < 140MM HG, G8754 MOST RECENT DIASTOLIC BP < 90MM HG, G8431 CLIN DEPRESSION SCREEN DOC positive * Follow Up: 4 Months,and prn * Images: Billing Information: * Visit Code: 29514 Office Visit, Est Pt., Level 4. * Procedure Codes: G2211 Complex e/[place]. [address] CBC WITH AUTO DIFF. 82539 GLYCATED HEMOGLOBIN TEST. Modifiers: QW 3044F HG [...] 0 04/16/2025 Generated for Katherine dimas/Brenden/eTransmitting on: 0 05/22/2025 12:04 PM EDT History [...]
[2025-05-22 11:44] VITALS: BP 117/74; PULSE 72; RESP 16; TEMP 36.8; O2SAT 98; BMI 40.0
[2025-05-22 12:03] VITALS: BP 123/80; PULSE 73; O2SAT 96
--- OUTSIDE RECORDS SUMMARY | 2025-05-22 12:04 | XMS_ITS | Clinical Summary ---
Author Organization [facility] Address [address] [place] [address] Care Team Providers Care Package Lift Operator Name Role Phone Asher Funk MD Primary Care Provider [phone] Allergies No known active allergies Medications cyanocobalamin [...] Health Maintenance Due Date Last Done Comments [facility]-Bone Density Scan 1960 [facility]-Hepatitis C Screening 1960 [facility]-Medicare Annual Wellness (AWV) 1960 [facility]-Infant/Child/Adol SDOH Screenings 1960 [facility]- SDOH Screenings 1977 [facility]-Adult SDOH Screenings 1977 CT Colonography 02/18/2004 Colonoscopy 02/18/2004 FIT 02/18/2004 FOBT 02/18/2004 Sigmoidoscopy 02/18/2004 [facility]-Breast Cancer Screening 2009 [facility]-Zoster Vaccines (1 of 2) 2009 [facility]-Pneumococcal Vaccine: 50 + Years (2 of 2 - PCV) 01/19/2019 01/19/2018 [facility]-RSV Vaccine: 60+ Years o r (1 - Risk 60-74 years 1-dose series) 2019 [id number] Vaccine ( season) 2025 08/22/2021, 01/03/2021, 11/29/2020 [facility]-Influenza Vaccine (#1) 2025 [...] patient's age to complete this topic Insurance MEDICARE [facility] Care Teams Package Lift Operator Relationship Specialty Start Date End Date Asher Funk MD [address] [place] [address] PCP - General 07/13/22
--- OUTSIDE RECORDS SUMMARY | 2025-05-22 12:05 | XMS_ITS | Clinical Summary ---
Author Organization [employer] ([place], [place], [place]) Address [address] [place] [address] Care Team Providers Care Information Technology Assistant Name Role Phone Unavailable Primary Care Provider [...]
--- OUTSIDE RECORDS SUMMARY | 2025-05-22 12:05 | XMS_ITS | Encounter Summary ---
Author Organization [employer] ([place], [place], [place], [place]) Address [address] [place] [address] Care Team Providers Care Lining Setter Name Role Phone Unavailable Primary Care Provider Unavailabl e Encounter Details Date Type Department Care Team (Late st Contact Info) Description 10/13/2019 Transcribed Document [facility] [place] [address] [place] [address] ProviderCatherine MD [address] [place] [address] Social History Tobacco Use Types [...] - Historical ProviderMD - 10/13/2019 3:26 AM ETHYLENE PLANT OPERATOR Electronically signed by Meghan [facility] Conversion Inset Cutter Cerner at 12/31/2022 1:38 PM CDT documented in this encounter Plan of Treatment Not on file documented as of this encounter Visit Diagnoses Not on filedocumented in this encounter
--- OUTSIDE RECORDS SUMMARY | 2025-05-22 12:05 | XMS_ITS | Encounter Summary ---
Author Organization [employer] ([place], [place], [place], [place]) Address [address] [place] [address] Care Team Providers Care Supervisor Baking Name Role Phone Unavailable Primary Care Provider Unavailabl e Encounter Details Date Type Department Care Team (Late st Contact Info) Description 10/13/2019 Transcribed Document [facility] [place] Family Medicine [address] [place] [address] ProviderCatherine MD [address] [place] [address] Social History Tobacco Use Types [...] Catherine Oleary MD - 10/13/2019 3:41 AM [place] [address] SHAYY TORIBIO :1960 Visit Time:10/12/2019 Your Visit [...] once for any worsening conditions. Where: [address] [facility] [address] [place] [address]- Business (1) Allergies No Known Medication Allergies Immunizations This Visit No Immunizations Found Medications What How Much When Instructions Next Dose New acetaminophen-hydrocodone ([place] 5 mg-325 mg oral tablet) 1 Tablet(s) [...] 11/26/2009 Document Revised: 08/24/2017 Document Reviewed: 08/24/2017 [employer] Patient Education ?? 2019 [employer]. Emergency Awareness and Preventative Care STROKE is [...] Assistance with quitting is available by contacting 2-218-WRTS-NOW. This is a free resource providing counseling, [...] was given the opportunity to ask questions. Patient/Slip Bridge Operator Name: Patient/Slip Bridge Operator Signature: Relationship to Patient: Clinician/Hospital Slip Bridge Operator Signature: Please Provide a Telephone Number Where You Can Be Reached: Is it Permissible To Leave a Message? Date: documented in this encounter Plan of Treatment Not on file documented as of this encounter Visit Diagnoses Not on filedocumented in this encounter
--- OUTSIDE RECORDS SUMMARY | 2025-05-22 12:05 | XMS_ITS | Referral Summary ---
Author Organization [employer] ([place], [place], [place], [place]) Address [address] [place] [address] Care Team Providers Care Neuroscientist Name Role Phone Unavailable Primary Care Provider [...]
--- OUTSIDE RECORDS SUMMARY | 2025-05-22 12:05 | XMS_ITS | Encounter Summary ---
Author Organization [employer] ([place], [place], [place], [place]) Address [address] [place] [address] Care Team Providers Care Data Center Engineer Name Role Phone Unavailable Primary Care Provider Unavailabl e Encounter Details Date Type Department Care Team (Late st Contact Info) Description 10/13/2019 Transcribed Document [facility] [place] Medicine [address] [place] [address] ProviderCatherine MD [facility] [place] [address] Social History Tobacco Use Types [...] - Catherine ProviderMD - 10/13/2019 3:42 AM E COMMERCE MERCHANDISING COORDINATOR [address] [place] [address] PERSON INFORMATION Name HSAYY TORIBIO Age 59 Years 1960 Sex Female Language PCP ECHO CHEN MD-ORT Marital Status Single Med Service Emergency Medicine Acct# Arrival 10/12/2019 22:47:00 Visit Reason Lower leg pain-swelling; POSSIBLE LEFT KNEE BAKERS CYST RUPTURE Acuity 4 - Non - Urgent LOS 000 04:55 Depart Date: 00:00 AM Address: [place] [address] Comment: PROVIDER INFORMATION Provider Role Assigned Unassigned Bev Kamara, TOOL MACHINIST Nurse 10/13/2019 00:34:57 MALOU SHUKLA DO ED [...] PATIENT EDUCATION INFORMATION Instructions: Knee Pain, Adult, [id number] Follow up: With: Address: When: ECHO CHEN [address] [place] [address], [address] [place] [id number] [facility] (1) Within 2 to 3 days Comments: Follow-up with the bone doctor as soon as possible regarding knee pain. Discuss with the bone doctor to obtain outpatient MRI of your knee to make sure there is no cartilage or ligament damage. Return at once for any worsening conditions. Comment: Electronically signed by Jeremiah Christianson Conversion Financial Planning Consultant Cerner at 12/31/2022 1:30 PM CDT documented in this encounter Plan of Treatment Not on file documented as of this encounter Visit Diagnoses Not on filedocumented in this encounter
--- OUTSIDE RECORDS SUMMARY | 2025-05-22 12:05 | XMS_ITS | Encounter Summary ---
Author Organization [employer] ([place], [place], [place], [place]) Address [address] [place] [address] Care Team Providers Care Nurse Companion Name Role Phone Unavailable Primary Care Provider Unavailabl e Encounter Details Date Type Department Care Team (Late st Contact Info) Description 10/13/2019 Transcribed Document [facility] [place] [facility] [place] [address] ProviderCatherine MD [address] [place] [address] Social History Tobacco Use Types [...] - Historical ProviderMD - 10/13/2019 1:36 AM CEMENTER HELPER Patient: SHAYY TORIBIO Age: 59 years [...] EST Height Source Measured Height Entry Format [place] Height/Length, SPANISH (ft) 5 ft Height/Length SPANISH 2 Inch CLINICALHEIGHT 157.48 cm [place] Body Weight 49.73 kg Weight Source, ED Critical estimated dosing weight Weight Entry Format [place] Weight Cuban lb 235 lb CLINICALWEIGHT 106.82 kg Body [...] SEX: 1960 / Female MRN / ACC#: [id number] / [id number] ORDERING PHYSICIAN: Malou Winter MD, EXAM REQUESTED: [id number]--TYGLED SCAN EXT VEIN UNILATERAL LEFT LEG FACILITY: [facility] DATE: 10/13/2019 RADIOLOGIST NAME: Baldo [...] his left knee., Medical records obtained from [facility]. X-ray of the left knee reveals osteoarthritis with possible small loose body in the intercondylar region. [facility] does not have official ultrasound results. Therefore ultrasound was paged to rule out DVT of the left lower extremity., Patient has a walker at home., Luis is negative. Request # : [id number]. Reexamination/ Reevaluation Time: 10/13/2019 03:22:00 . Vital [...] EST, Discharge to: Home . Prescriptions: Prescription Skip Load Driver Pharmacy: [facility] 5 mg-325 mg oral tablet (Prescribe): 1 Tab, Oral, Q6H, PRN: for pain, 12 Tab, 0 Refill(s) . Patient was given the following educational materials: Knee Pain, Adult, [id number]. Follow up with: ECHO CHEN Within 2 [...] instructions. Electronically signed by Jeremiah Christianson Conversion Material Crew Supervisor Cerner at 12/31/2022 1:33 PM CDT documented in this encounter Plan of Treatment Not on file documented as of this encounter Visit Diagnoses Not on filedocumented in this encounter
--- OUTSIDE RECORDS SUMMARY | 2025-05-22 12:05 | XMS_ITS | Encounter Summary ---
Author Organization [employer] ([place], [place], [place], [place]) Address [address] [place] [address] Care Team Providers Care Brand Marketing Specialist Name Role Phone Unavailable Primary Care Provider Unavailabl e Encounter Details Date Type Department Care Team (Late st Contact Info) Description 10/13/2019 Transcribed Document [facility] Family Medicine [address] [place] [address] ProviderCatherine MD [address] [place] [address] Social History Tobacco Use Types [...] - Historical ProviderMD - 10/13/2019 3:42 AM ROOTER OPERATOR ED Discharge Entered On: 10/13/2019 3:42 EST [...] 10/13/2019 3:42 EST Electronically signed by Meghan [facility] Conversion Paper Inserter Cerner at 12/31/2022 1:13 PM CDT documented in this encounter Plan of Treatment Not on file documented as of this encounter Visit Diagnoses Not on filedocumented in this encounter
--- OUTSIDE RECORDS SUMMARY | 2025-05-22 12:05 | XMS_ITS | Encounter Summary ---
Author Organization [employer] ([place], [place], [place], [place]) Address [address] [place] [address] Care Team Providers Care Protection Engineer Name Role Phone Unavailable Primary Care Provider Unavailabl e Encounter Details Date Type Department Care Team (Late st Contact Info) Description 10/12/2019 Transcribed Document [facility] [place] [address] [place] [address] ProviderCatherine MD [address] [place] [address] Social History Tobacco Use Types [...] - Historical ProviderMD - 10/12/2019 10:48 PM LEGAL ASSOCIATE [place] Suicide Severity Rating Scale (C-SSRS) Entered On: 10/13/2019 0:43 EST Performed On: 10/13/2019 0:42 EST by Bev Kamara RN [place] Suicide Severity Rating Scale (C-SSRS) CSSRS Past [...]
--- OUTSIDE RECORDS SUMMARY | 2025-05-22 12:05 | XMS_ITS | Patient Health Record ---
[facility] Address [address] [facility] [address] [place] Thomas [id number] Care Team Providers Care Ball Assembler Name Role Phone Ester Michael Primary Care Provider Rodrigo Funk Unavailable [phone] Laura Singh Unavailable [phone] Allergies No Known Allergies Results Component Value [...] Interpretation: Performing Lab: Notes/Report: Test performed by [facility], [facility] [address] [place] [address] , [address], [place] [address] Dalton Jonas MD, Credit Underwriter CLIA: [id number] Sodium 142 135-145 mmol/L Potassium 4.6 3.5-5.3 [...] 90 Performing Lab: Notes/Report: Test performed by [facility], [address] , [facility], [place] [address] Dalton Jonas MD, Credit Underwriter CLIA: [id number] Cholesterol 143 <200 mg/dL Triglycerides 90 <150 [...] Interpretation:Negative Performing Lab: Notes/Report: Negative result Negative Glycohemoglobin A1c (in hous e) Reviewed date:06/15/2024 05:15:16 PM Interpretation:6.2% Performing Lab: Notes/Report: 6.2% glycohemoglobin 6.2% 5 - 6.5 % P-Comprehensive Metabolic Pa kathleen (CMP) Reviewed date:06/11/2024 10:13:49 PM Interpretation:gluc 148, Cr 1.29, gfr 46 Performing Lab: Notes/Report: Test performed by [facility] [address] [place] [address] , [address], [place] [address] Dalton Jonas MD, Credit Underwriter CLIA: [id number] Sodium 139 135-145 mmol/L Potassium 4.8 3.5-5.3 [...] Interpretation:Normal Performing Lab: Notes/Report: Test performed by [facility] [address] [place] [address] , [address], [place] [address] Dalton Jonas MD, Credit Underwriter CLIA: [id number] Cholesterol 147 <200 mg/dL Triglycerides 108 <150 [...] Results: 57 Units: mg/dL % Change: - Bone density Reviewed date:02/22/2025 05:22:21 PM Interpretation:Normal Performing Lab: Notes/Report: Normal Influenza Screen (in house) Reviewed date:10/30/2024 08:12:57 PM Interpretation:pos fluA Performing Lab: Notes/Report: pos fluA results pos fluA Covid test (in house) Reviewed date:10/30/2024 08:12:40 PM Interpretation:neg Performing Lab: Notes/Report: neg Result: neg Glycohemoglobin A1c (in hous e) Reviewed date:11/20/2024 01:09:56 PM Interpretation:6.4% Performing Lab: Notes/Report: 6.4% glycohemoglobin 6.4% 5 - 6.5 % P-Comprehensive Metabolic Pa kathleen (CMP) Reviewed date:11/22/2024 04:36:59 PM Interpretation:gluc 151, Cr 1.4, gfr 42 Performing Lab: Notes/Report: Test performed by [facility] [address] [place] [address] , [address], [place] [address] Dalton Jonas MD, Credit Underwriter CLIA: [id number] Sodium 139 135-145 mmol/L Potassium 5.2 3.5-5.3 [...] 0.4 <0.2-1.2 mg/dL A/G Ratio 1.8 1.1-2.5 Medications Medication SIG (Take, Route, Frequency, Duration) Notes Start Date End Date Status Pantoprazole Sodium 40 MG 1 tab(s) orall y once a day 12/11/2022 Active Sertraline HCl 50 MG Take 1 tablet by [facility] once daily; Duration: 90 Active Ozempic (1 MG/DOSE) 4 MG/3ML 1mg [...] orally on ce a day 02/14/2015 Active Pravastatin Sodium 40 MG 1 tablet Orally Once a day; Duration: 90 days Active Immunizations [...] Status W/U Status Risk Notes Problem Osteoarthrosis (269459144) OSTEOARTHROS NOS-L/LEG (715.96) Active confirmed Problem Type 2 diabetes mellitus (19138495) Type 2 diabetes mellitus (E11.9) Active confirmed Problem Hypertension (61886708) HTN (hypertension) (I10) Active confirmed Problem Vitamin D deficiency (99277277) Vitamin D deficiency (E55.9) Active confirmed Problem Essential hypertension (26487095) Essential hypertension (I10) Active confirmed Problem Body mass index 40+ - severely obese (721828431) BMI 45.0-49.9, adult (Z68.42) Active confirmed Problem Mixed hyperlipidemia (721146107) Mixed hyperlipidemia (E78.2) Active confirmed Problem Loose body in knee (62668801) Loose body in knee, left knee (M23.42) Active confirmed Problem Vaccination given (359337111) Encounter for immunization (Z23) Active confirmed Problem Renal insufficiency (106794954) Renal insufficiency (N28.9) Active confirmed Problem Mammography abnormal (404995809) Abnormal mammogram of left breast (R92.8) Active confirmed Problem Depression (209164267) Depression (F32.9) Active confirmed Problem Neck pain (41058103) Neck pain (M54.2) Active confirmed Problem Gastroesophageal reflux disease (924237126) Gastroesophageal reflux disease, esophagitis presence not specified (K21.9) Active confirmed Problem Verruca vulgaris (85678616) Viral warts, unspecified type (B07.9) Active confirmed Problem Fibrocystic breast changes (91342781) Fibrocystic breast disease (FCBD), unspecified laterality (N60.19) Active confirmed Problem Esophageal dysphagia (23720030) Esophageal dysphagia (R13.10) Active confirmed Vital Signs Heart Rate 60 /min 04/16/2025 Blood pressure diastolic 70 mm Hg 04/16/2025 Height 61 in 04/16/2025 Blood pressure systolic 120 mm Hg 04/16/2025 Weight 229.6 lbs 04/16/2025 BMI 43.38 kg/m2 04/16/2025 Encounters Encounter Location Date Provider Diagnosis [facility] [address] [facility] [address] [place] [id number] 06/06/2024 Ester Michael Essential hypertensi on I10 ; Mixed hyperlipidemia E78.2 ; Gastroesophageal reflux disease, esophagitis presence not specified K21.9 and Encounter for immunization Z23 [facility] [address] [facility] [address] [place] [id number] 06/13/2024 Ester Michael Elevated glucose lev el R73.09 [facility] [address] [facility] [address] [place] [id number] 08/07/2024 Laura Singh Back pain M54.9 ; Ne ck pain M54.2 and Fall W19.XXXA [facility] [address] [facility] [address] [place], [place] [id number] 10/30/2024 Laura Singh Influenza A J10.1 an d Cough R05.9 [facility] [address] [facility] [address] [place] [id number] 11/20/2024 Laura Singh HTN (hypertension) I 10 ; Hyperglycemia R73.9 ; Weight loss R63.4 and BMI 45.0-49.9, adult Z68.42 [facility] [address] [facility] [address] [place] [id number] 02/12/2025 Laura Singh BMI 45.0-49.9, adult Z68.42 ; Encounter for weight loss counseling Z71.3 ; Type 2 diabetes mellitus E11.9 and Mixed hyperlipidemia E78.2 [facility] [address] [place], [place] [id number] 04/16/2025 Laura Singh Weight loss counseli judie, encounter for Z71.3 ; Breast cancer screening Z12.39 ; Mixed hyperlipidemia E78.2 ; Gastroesophageal reflux disease, esophagitis presence not specified K21.9 ; Depression F32.9 ; Hyperglycemia R73.9 and BMI 45.0-49.9, adult Z68.42 [facility] [address] [facility] [address] [place] [id number] 05/29/2024 R Cesar Fernanda [facility] [address] [facility] [address] [place] [id number] 05/29/2024 R Cesar Fernanda [facility] [address] [facility] [address] [place] [id number] 06/11/2024 R Cesar Fernanda [facility] [address] [facility] [address] [place] [id number] 06/15/2024 R Cesar Fernanda [facility] [address] [facility] [address] [place] [id number] 11/23/2024 Laura Singh [facility] [address] [facility] [address] [place] [id number] 12/11/2024 Laura Singh BMI 45.0-49.9, adult Z68.42 [facility] [address] [place] [id number] 01/01/2025 R Cesar Colladot [facility] [address] [place] [id number] 02/12/2025 Laura Singh Encounter for weight loss counseling Z71.3 [facility] [address] [place] [id number] 02/13/2025 R Cesar Jcfleet [facility] [address] [place] [id number] 04/23/2025 R Cesar Jcfleet [facility] [address] [place] [id number] 12/07/2024 Rodrigo Funk Gastroesophageal ref lux disease, esophagitis presence not specified K21.9 [facility] [address] [place] [id number] 12/29/2024 Laura Singh [facility] [address] [place] [id number] 03/07/2025 Rodrigo Funk [facility] [address] [place] [id number] 03/08/2025 Rodrigo Funk [facility] [address] [place], [place] [id number] 05/21/2025 Rodrigo Funk Mixed hyperlipidemia E78.2 Assessments Encounter Date Diagnosis (ICD Code) Assessment Notes Treatment Notes Treatment Clinical Notes Section Notes 06/06/2024 Essential hypertension (ICD-10 - I10) 06/06/2024 Mixed hyperlipidemia (ICD-10 - E78.2) 08/07/2024 Neck pain (ICD-10 - M54.2) 10/30/2024 Influenza A (ICD-10 - J10.1) fluids, rest, supportive measures for fever/symptom relief; infectious precautions 10/30/2024 Cough (ICD-10 - R05.9) 11/20/2024 Hyperglycemia (ICD-10 - R73.9) 11/20/2024 HTN (hypertension) (ICD-10 - I10) 08/07/2024 Back pain (ICD-10 - M54.9) heat/ cold application; encouraged to use walker ; has appt with [facility] as arranged in the ER 08/15/2024 which she will keep; to continue with tylenol prn; encouraged to curtail activity; cautioned that med will make her sleepy 12/11/2024 BMI 45.0-49.9, adult (ICD-10 - Z68.42) 02/12/2025 Encounter for weight loss counseling (ICD-10 - Z71.3) Continue with Ozempic weekly injections, watch food intake, exercise. 05/21/2025 Mixed hyperlipidemia (ICD-10 - E78.2) 04/16/2025 Breast cancer screening (ICD-10 - Z12.39) Has hx of mass in left breast 02/12/2025 BMI 45.0-49.9, adult (ICD-10 - Z68.42) 04/16/2025 Weight loss counseling, encounter for (ICD-10 - Z71.3) increased dose. monitor for any GI symptoms. discussed current diet and exercvise 02/12/2025 Encounter for weight loss counseling (ICD-10 - Z71.3) 12/07/2024 Gastroesophageal reflux disease, esophagitis presence not specified (ICD-10 - K21.9) 04/16/2025 Mixed hyperlipidemia (ICD-10 - E78.2) 02/12/2025 Type 2 diabetes mellitus (ICD-10 - E11.9) 08/07/2024 Fall (ICD-10 - W19.XXXA) 11/20/2024 Weight loss (ICD-10 - R63.4) discussed weight loss plan with healthy foods, portions sizes and exercise 06/06/2024 Gastroesophageal reflux disease, esophagitis presence not [...] adult (ICD-10 - Z68.42) Plan Of Treatment No Information Insurance Providers Payer Name Payer Address Payer Phone Subscriber Number Group Number Insured Name Patient Relationship to Insured Coverage Start Date Coverage End Date MEDICARE PART B [address] [address] [place] [id number] COLLINS TORIBIO Self - patient is the insured [facility] [address] [place] [address] [id number] COLLINS TORIBIO Self - patient is the [...]
--- OUTSIDE RECORDS SUMMARY | 2025-05-22 12:06 | XMS_ITS | Encounter Summary ---
Author Organization [employer] ([place], [place], [place], [place]) Address [address] [place] [address] Care Team Providers Care Refractory Repairer Name Role Phone Unavailable Primary Care Provider Unavailabl e Encounter Details Date Type Department Care Team (Late st Contact Info) Description 10/12/2019 Transcribed Document [facility] Family Medicine [address] [place] [address] ProviderCatherine MD [address] [place] [address] Social History Tobacco Use Types [...] - Historical ProviderMD - 10/12/2019 10:48 PM ACID SUPERVISOR ED Assessment Entered On: 10/13/2019 0:43 EST Performed On: 10/13/2019 0:42 EST by Bev Kamara RN ED Quick Look Assessment Level of Consciousness : Alert, Awake Affect/Behavior : Appropriate, Calm, Cooperative Orientation : Oriented x 4 Skin Temperature : Warm Skin Description : Normal for ethnicity Bev Kamara RN - 10/13/2019 0:42 EST ED General-Functional Assess Communication Barrier : None Primary Language : Ivorian Any Spiritual/Cultural Needs or Requests : No [...] 10/13/2019 0:42 EST Electronically signed by Meghan [facility] Conversion Farm Truck Driver Cerner at 12/31/2022 1:16 PM CDT documented in this encounter Plan of Treatment Not on file documented as of this encounter Visit Diagnoses Not on filedocumented in this encounter
--- OUTSIDE RECORDS SUMMARY | 2025-05-22 12:06 | XMS_ITS | Encounter Summary ---
Author Organization [employer] ([place], [place], [place], [place]) Address [address] [place] [address] Care Team Providers Care Look Out Tower Fire Watcher Name Role Phone Unavailable Primary Care Provider Unavailabl e Encounter Details Date Type Department Care Team (Late st Contact Info) Description 10/12/2019 Transcribed Document [facility] [place] [facility] [place] [address] ProviderCatherine MD [address] [place] [address] Social History Tobacco Use Types [...] - Historical ProviderMD - 10/12/2019 10:48 PM DYNAMIC ETCHING PROCESSOR ED Triage Entered On: 10/12/2019 23:17 EST [...] - Non - Urgent Tracking Group : [facility] ED [place] PETTY PACHECO RN - 10/12/2019 [...] 23:17:37 EST) Problems(Active) HTN (hypertension) (SNOMED CT :1098490336 ) Name of Problem: HTN (hypertension) ; Recorder: PETTY PACHECO RN; Confirmation: Confirmed ; Classification: Medical ; Code: [id number] ; Contributor System: [employer] ; Last Updated: 10/12/2019 23:17 EST ; Life Cycle Date: 10/12/2019 ; Life Cycle Status: Active ; Vocabulary: SNOMED CT Diagnoses(Active) Lower leg pain-swelling Date: 10/12/2019 ; Diagnosis Type: Reason For Visit ; Confirmation: Complaint of ; Clinical Dx: Lower leg pain-swelling ; Classification: Medical ; Clinical Service: Emergency medicine ; Code: PNED ; Probability: 0 ; Diagnosis Code: [id number] ED Height and Weight Height Source : Measured Height Entry Format : [place] Height, Feet : 5 ft(Converted to: 152 cm, 60 Inch) Height, Inches : 2 Inch(Converted to: 0 ft 2 Inch, 5.08 cm) Clinical Height : 157.48 cm Weight Source, ED : Critical estimated dosing weight Weight Entry Format : [place] Weight, Pounds : 235 lb Clinical Dosing Weight : 106.82 kg Body Surface Area (BSA) : 2.05 m2 Body Mass Index : 43.1 kg/m2 (>HHI) [place] Body Weight (IBW) : 49.73 kg PETTY [...] EST Electronically signed by Jeremiah Christianson Conversion [facility] Service Supervisor Cerner at 12/31/2022 1:33 PM CDT documented in this encounter Plan of Treatment Not on file documented as of this encounter Visit Diagnoses Not on filedocumented in this encounter
[2025-05-22 12:30] VITALS: BP 129/83; PULSE 78; O2SAT 98
[2025-05-22] MEDS: TET/DIPHTH/PERT-ADULT 0.5ML SYRINGE 0.5 ML IM (12:31)
[2025-05-22] MEDS: LIDOCAINE 1% W/EPI 1:100,000 20ML VIAL 20 ML SQ (12:32)
--- NOTE | 2025-05-22 12:44 | ED_ITS ---
<Statement entered by Ruddy Oneill MD - 05/22/25 13:47> I was consulted by the ALICIA, and we discussed the complexity of the problems being addressed. I approve the treatment and management plan for this patient's care in the emergency department, thus performing a substantive portion of the medical decision making. Ruddy Oneill MD Discharge Plan Disposition Patient Disposition: Home, Self-Care Prescriptions Prescriptions: New amoxicillin-pot clavulanate 875-125 mg tablet 1 tab PO Q12H Qty: 20 0RF No Action hydrocodone-acetaminophen 5-325 mg tablet 1 tab PO Q8H PRN (Reason: pain) Qty: 12 0RF ondansetron HCl 4 mg tablet 4 mg PO DAILY Qty: 30 0RF lisinopril 20 MG tablet 20 mg PO DAILY pantoprazole 40 MG tablet,delayed release (DR/EC) 40 mg PO HS sertraline 50 MG tablet 50 mg PO DAILY multivitamin 1 EACH tablet 1 each PO DAILY cyanocobalamin (vitamin B-12) 100 MCG tablet 100 mcg PO DAILY famotidine 10 MG tablet 10 mg PO DAILY pravastatin 40 MG tablet 40 mg PO HS cholecalciferol (vitamin D3) 1,000 UNIT capsule 1,000 unit PO DAILY Referrals Follow up/Referrals: Drew Michael MD [Primary Care Provider, Medical] - See instructions Activity Restrictions/Add. Instructions Additional Instructions/Restrictions: May have sutures removed in 7 to 10 days. Problems or concerns please return to ED Clinical Impressions Clinical Impression: Laceration Instructions Patient Instructions: DI for Laceration Repair Print Language Print Language: Haitian Discharge ED Provider: Ruddy Oneill General Adult HPI General Chief complaint: Wound/Laceration Stated complaint: Cut on R Pointer Finger Time Seen by Provider: 05/22/25 12:00 Mode of Arrival: Ambulatory Source of Information: Patient Description of Symptoms (Recalled from ER Triage Doc. by RN): patient comes to the ED for a laceration on her left pointer finger after her rooster flogged h er. laceration will not stop bleeding. patient is not in thinners. History of Present Illness HPI narrative: 65-year-old female presents to the ED for complaint of laceration to her index finger after a rooster flogged her. She has some other spots that he scratched her as well. Patient is not up-to-date on tetanus. Related Data Home Medications ?Medication ?Instructions ?Recorded ?Confirmed lisinopril 20 mg tablet 20 mg PO DAILY Hypertension 08/29/20 12/17/21 pantoprazole 40 mg tablet,delayed 40 mg PO HS GERD 12/17/21 release sertraline 50 mg tablet 50 mg PO DAILY Depression 12/17/21 cholecalciferol (vitamin D3) 25 1,000 unit PO DAILY Moise pplement 12/16/21 12/17/21 mcg (1,000 unit) capsule cyanocobalamin (vitamin B-12) 100 100 mcg PO DAILY Sup plement 12/16/21 12/17/21 mcg tablet famotidine 10 mg tablet 10 mg PO DAILY GERD 12/16/21 12/17/21 multivitamin 1 each PO DAILY Supplement 0 12/16/21 12/17/21 pravastatin 40 mg tablet 40 mg PO HS Cholesterol 02/0112/17/21 Previous Rx's ?Medication ?Instructions ?Recorded hydrocodone 5 mg-acetaminophen 325 1 tab PO Q8H PRN pa in #12 tabs 08/05/24 mg tablet ondansetron HCl 4 mg tablet 4 mg PO DAILY #30 tabs amoxicillin 875 mg-potassium 1 tab PO Q12H #20 tabs clavulanate 125 mg tablet Allergies Allergy/AdvReac Type Severity Reaction Status Date / Time No Known Allergies Allergy Verified 12/16/21 14:18 [facility] Disclaimer: The information contained in this section may have been updated after the patient was seen, as this information can be updated by other users. Social History (Updated 08/05/24 @ 16:05 by Christie Cates (ED), TURPENTINE FARMER) Smoking Status: Never smoker alcohol intake: current alcohol intake frequency: holidays/special occasions only substance use type: denies use current occupational status: retired Travel in the last 8 weeks?: None household members: spouse housing: house current occupational exposures/hazards: No caffeine: Yes Have you lived/traveled outside US in past 30 days?: No Contact w/someone who lives/traveled outside US past 30 days?: No Exposure to someone with infectious disease in past 14 days?: No Do you have a fever (greater than 100.4 F or 38 C)?: No Have you tested positive for COVID-19?: No Exposed to someone with COVID-19 in past 14 days?: No Do you have a sore throat?: No Do you have a cough?: No Do you have any weakness?: No Do you have any diarrhea?: No Are you experiencing any unusual bleeding?: No Do you have any muscle aches/pain?: No Do you have any abdominal pain?: No Are you experiencing loss of taste or smell?: No Other Medical History Have you received the Flu Vaccine for this season: Yes Have you received the Pneumonia Vaccine: Yes ROS Obtained: Yes Systems reviewed as appropriate & no additional complaints except as documented Constitutional Constitutional: Reports as per HPI Physical Exam General General appearance: alert and in no apparent distress Head Head exam: normocephalic Eye Eye exam: Present PERRL and EOMI ENT ENT exam: Present normal oropharynx Neck Neck exam: Present full ROM and trachea midline Respiratory Respiratory exam: Present normal lung sounds bilaterally Cardiovascular Cardiovascular exam: Present regular rate, normal rhythm, normal heart sounds, +S1 and +S2 Extremities Exam Extremities exam: Present full ROM and normal capillary refill Neurological Exam Neurological exam: Present alert and oriented X3 Skin Skin exam: Present warm, dry and other (Laceration to index finger on right hand) Medical Decision Making Medical Records Screening: Per USPSTF and CDC recommendations, given the prevalence of disease in our reg ion, it is our hospital?s policy to screen for HIV and viral Hepatitis for all patients aged 18 and over and those with ongoing risk factors. Luis Inquiry Pt receiving controlled substance: No Luis was queried for this patient: No Vital Signs: 05/22/25 11:44 05/22/25 12:03 05/22/25 12:30 Temperature 98.2 F Temperature Source Temporal Artery Scan Pulse Rate 73 78 Pulse Rate [Right Radial] 72 Respiratory Rate 16 Blood Pressure 123/80 129/83 Blood Pressure [Right Arm] 117/74 Blood Pressure Mean [Right Arm] 88 Blood Pressure Source Blood Pressure Source [Right Arm] Automatic Cuff Blood Pressure Position Blood Pressure Position [Right Arm] Sitting 02 Sat by Pulse Oximetry 98 96 98 Oxygen Delivery Method Room Air 05/22/25 13:01 Temperature 98.4 F Temperature Source Oral Pulse Rate 71 Pulse Rate [Right Radial] Respiratory Rate 16 Blood Pressure 126/83 Blood Pressure [Right Arm] Blood Pressure Mean [Right Arm] Blood Pressure Source Automatic Cuff Blood Pressure Source [Right Arm] Blood Pressure Position Supine Blood Pressure Position [Right Arm] 02 Sat by Pulse Oximetry Oxygen Delivery Method Room Air Orders (Tests/Meds): ED MEDICATIONS Discontinued Medications Generic Name Dose Route Start Last Admin Trade Name Isis PRN Reason Stop Dose Admin Lidocaine/Epinephrine 20 ml 05/22/25 12:03 05/22/25 12:32 Lidocaine 1% W/Epi 1:100,000 20ml Vial SQ 05/22/25 12:04 20 ml ONCE ONE Administration Tetanus/Reduced Diphtheria/Acell Pertussis 0.5 ml 05/22/25 12:03 05/22/25 12:31 Tet/Diphth/Pert-Adult 0.5ml Syringe IM 05/22/25 12:04 0.5 ml .ONCE ONE Administration Medical Decision Narrative: patient is a 65-year-old female presenting to the emergency department for evaluation of laceration. Patient is hemodynamically stable and nontoxic- appearing upon arrival, afebrile. Differential diagnosis includes laceration. Laceration was repaired. Patient was placed on antibiotics and given a tetanus shot. Patient safe for discharge home. She needs to return to PCP 7 to 10 days for suture removal. Procedures Laceration Laceration 1: Site: finger Side (If applicable): right Size (cm): 2.5 Description: flap and irregular Depth: simple, single layer Local Anesthetic: lidocaine 1% Amount of anesthesia used (mL): 4 Pre-repair: wound explored and irrigated extensively Size (cm): 4-0 Number of sutures: 4 Technique: simple, interrupted Critical Care Critical Care Time Critical Care Time: No
[2025-05-22 13:01] VITALS: BP 126/83; PULSE 71; RESP 16; TEMP 36.9; O2SAT 97
== END 2025-05-22 13:10 | disposition home or self-care (01) ==
PROVIDERS: Emergency Provider Student in an Organized Health Care Education/Training Program; PCP Family Medicine
DX: S61.211A Laceration without foreign body of left index finger without damage to nail, initial encounter (principal); W61.32XA Struck by chicken, initial encounter; Z23 Encounter for immunization
CPT/HCPCS: 12001; 90471; 90715; 99284; J2004

== ENCOUNTER 2025-08-02 11:23 | Outpatient (CLI) | payer MEDICARE, BC, SELFPAY ==
--- OUTSIDE RECORDS SUMMARY | 2024-06-06 04:15 | XMS_ITS ---
[facility] Address [address] [facility] [address] [place] [phone] Care Team Providers Care Manager Medical Affairs Name Role Phone Ester Michael Primary Care Provider Rodrigo Funk Unavailable [phone] Allergies No Known Allergies Results Component Value Reference Range Notes P-Comprehensive Metabolic Pa kathleen (CMP) Reviewed date:06/11/2024 10:13:49 PM Interpretation:gluc 148, Cr 1.29, gfr 46 Performing Lab: Notes/Report: Test performed by [facility] [address] [place] [address] , [address], [place] [address] Dalton Jonas MD, Per Di[facility] CLIA: [id number] Sodium 139 135-145 mmol/L Potassium 4.8 3.5-5.3 mmol/L Chloride 104 97-108 mmol/L CO2 25 22-32 mmol/L Glucose 148 65-99 mg/dL BUN 21 8-23 mg/dL Creatinine 1.29 0.50-1.00 mg/dL Calcium 9.6 8.6-10.4 mg/dL eGFR by Creatinine 46 >59 mL/min/1.73m2 Protein 6.4 6.0-8.3 g/dL Albumin 4.2 3.5-5.3 g/dL Alkaline Phosphatase 86 35-121 IU/L ALT (SGPT) 11 <5-47 IU/L AST (SGOT) 10 <5-40 IU/L Bilirubin, Total 0.4 <0.2-1.2 mg/dL A/G Ratio 1.9 1.1-2.5 P-Lipid Panel Reviewed date:06/11/2024 10:13:49 PM Interpretation:Normal Performing Lab: Notes/Report: Test performed by [facility], [address] , [address], [place] [address] Dalton Jonas MD, Per Diem CLIA: [id number] Cholesterol 147 <200 mg/dL Triglycerides 108 <150 mg/dL HDL Cholesterol 68 >39 mg/dL Cholesterol / HDL Ratio 2.16 0.00-4.44 Ratio Non-HDL Cholesterol 79 <130 mg/dL LDL Cholesterol (Calculation) 57 <130 mg/dL LDL Cholesterol Levels* Less than 100 mg/dL Optimal 100 to 129 mg/dL Near Optimal/ Above Optimal 130 to 159 mg/dL Borderline High 160 to 189 mg/dL High 190 mg/dL and above Very High * Categories as recommended by the 2004 ATPIII guidelines LDL/HDL Ratio 0.8 <3.3 Ratio LDL Cholesterol Patient History Test Date: 06/06/2024 LDL Results: 57 Units: mg/dL % Change: - REASON FOR VISIT CHECK UP AND LABS, Needs bone density screening, shingles, & flu vaccine Medications Medication SIG (Take, Route, Frequency, Duration) Notes Start Date End Date Status Multivitamin - 1 tab(s) orally once a day; Duration: 30 day(s) Active Vitamin D3 500 1 CAP(S) ORALLY ONCE A DAY 02/14/2015 Active Vitamin B-12 1000 MCG 1 tab(s) orally on ce a day 02/14/2015 Active Metoclopramide HCl 5 MG 1/2 orally 4 chong es a day (before meals and at bedtime); Duration: 30 day(s) Not-Taking Vitamin C 250 MG 1 tab(s) orally once a day; Duration: 30 day(s) Active Pantoprazole Sodium 40 MG 1 tab(s) orall y once a day; Duration: 90 days 12/11/2022 Active Sertraline HCl 50 MG 1 tab(s) orally onc e a day; Duration: 90 days Active Pravastatin Sodium 40 MG 1 tab(s) orally once a day; Duration: 90 days Active Lisinopril 10 MG 1 tab(s) orally once a day; Duration: 90 days Active Immunizations Vaccine Route Administration Date Status Comme nts Fluzone High Dose (65yr and older) IM Intramuscular 06/06/2024 Administered Vital Signs Blood pressure systolic 114 mm Hg 06/06/20 24 Blood pressure diastolic 76 mm Hg 024 Heart Rate 88 /min 06/06/2024 Height 61 in 06/06/2024 Weight 247.4 lbs 06/06/2024 BMI 46.74 kg/m2 06/06/2024 Encounters Encounter Location Date Provider Diagnosis [facility] [address] [id number] 06/06/2024 Ester Michael Essential hypertensi on I10 ; Mixed hyperlipidemia E78.2 ; Gastroesophageal reflux disease, esophagitis presence not specified K21.9 and Encounter for immunization Z23 Assessments Encounter Date Diagnosis (ICD Code) Assessment Notes Treatment Notes Treatment Clinical Notes Section Notes 06/06/2024 Essential hypertension (ICD-10 - I10) 06/06/2024 Mixed hyperlipidemia (ICD-10 - E78.2) 06/06/2024 Gastroesophageal reflux disease, esophagitis presence not specified (ICD-10 - K21.9) 06/06/2024 Encounter for immunization (ICD-10 - Z23) Plan Of Treatment Medication Medication Name Sig Start Date Stop Date Notes Pantoprazole Sodium 40 MG 1 tab(s) orall y once a day; Duration: 90 days 12/11/2022 Next Appt Details Follow Up: 6 Months, Reason: Progress Notes * LIZZETH TORIBIOB:1960 (65 yo F)Acc No.[id number]:06/06/2024 Progress Notes Patient: COLLINS BRITT Provider: Ester Michael M.D. :1960 A ge:64 Y S ex:Female Date:06/06/2024 Address:[address], [id number] Subjective: * Chief Complaints: * 1 . CHECK UP AND LABS. 2. Needs bone density screening, shingles, & flu vaccine. * HPI: H PI: Patient is here today for a check up and fasting labs as well as a refill on prescriptions.. C ardiology: Denies : Chest Pain. D enies : Short of Breath. D enies : Palpitations. D enies : Leg Edema. G astroenterology: GI symptoms stable on pantoprazole. * ROS: C ARDIOLOGY: no D izziness. n o C hest pain. G ASTROENTEROLOGY: no N ausea. n o V omiting. U ROLOGY: no D ifficulty urinating. n o B lood in urine. * Medical History: H ypertension, Sleep apnea, Vitamin B 12 deficiency, Vitamin D deficiency, Esophageal reflux, Hyperlipidemia, Covid - Aug 24, 2020, Cologuard negative 11/2022. * Surgical History: t onsillectomy , knee surgery 07/2005, Total Knee Replacement - Right 12/2015. * Family History: F ather: alive 66 yrs. M other: alive 67 yrs. P aternal Grand Father: . P aternal Grand Mother: . M aternal Grand Father: . M aternal Grand Mother: . 2 sister(s) . 3 daughter(s) . . * Social History: C URRENT TOBACCO USE S moking Status: Patient does NOT smoke, Former Smoker: No, Second hand smoke exposure: No. C affeine: yes, frequency:daily. Exercise: no. Home smoke detector use: yes. Marital Status: . New since last visit: none. Occupation: yes. Past smoking status: no. Occup. exposure: none. Recreational drug use: no. Alcohol: no. Sexually active: yes. Travel ouside [place]: no. * Medications: T aking Vitamin B-12 1000 MCG Tablet 1 tab(s) orally once a day , Taking Vitamin D3 500 CAPSULE 1 CAP(S) ORALLY ONCE A DAY , Taking Multivitamin - Tablet 1 tab(s) orally once a day , Taking Vitamin C 250 MG Tablet 1 tab(s) orally once a day , Taking Sertraline HCl 50 MG Tablet 1 tab(s) orally once a day , Taking Pantoprazole Sodium 40 MG Tablet Delayed Release 1 tab(s) orally once a day , Taking Lisinopril 10 MG Tablet 1 tab(s) orally once a day , Taking Pravastatin Sodium 40 MG Tablet 1 tab(s) orally once a day , Not-Taking Metoclopramide HCl 5 MG Tablet 1/2 orally 4 times a day (before meals and at bedtime) , Discontinued Bactrim DS 800-160 MG Tablet 1 tablet Orally Twice a day , Medication List reviewed and reconciled with the patient * Allergies: N .K.D.A. Objective: * Vitals: W t:247.4, Temp:98.3, BP:114/76, HR:88, O2 Sat:98% on RA, Nurse:AIDAN, Ht: 61, BMI:46.74. * Examination: C ardiology: General Appearance: p leasant, NAD. C arotid upstroke:?normal, no bruits. H eart sounds: R RR, normal S1, S2. M urmur, click , gallop:?none. L ungs: c lear, no rales or wheezes. A bdomen: p ositive BS, soft, nontender. E xtremities: n o leg edema. Assessment: * Assessment: 1. E ssential hypertension - I10 (Primary) 2 . M ixed hyperlipidemia - E78.2 3 . G astroesophageal reflux disease, esophagitis presence not specified - K21.9 4 . E ncounter for immunization - Z23 Plan: * Treatment: Value Reference Range A /G Ratio 1.9 1.1-2.5 - * A lbumin 4.2 3.5-5.3 - g/dL * A lkaline Phosphatase 86 35-121 - IU/L * A LT (SGPT) 11 <5-47 - IU/L * A ST (SGOT) 10 <5-40 - IU/L * B ilirubin, Total 0.4 <0.2-1.2 - mg/dL * B UN 21 8-23 - mg/dL * C alcium 9.6 8.6-10.4 - mg/dL * C hloride 104 97-108 - mmol/L * C O2 25 22-32 - mmol/L * C reatinine 1.29 H 0.50-1.00 - mg/dL * G lucose 148 H 65-99 - mg/dL * P otassium 4.8 3.5-5.3 - mmol/L * S odium 139 135-145 - mmol/L * P rotein 6.4 6.0-8.3 - g/dL * e GFR by Creatinine 46 L >59 - mL/min/1.73m2 * Ester Michael 06/11/2024 1 0:13:39 PM >See phone encounter 2.?Mixed hyperlipidemia?LAB: P-Lipid Panel (Collection Date & Time - 06/06/2024 08:45 AM)?Normal* Value Reference Range C holesterol / HDL Ratio 2.16 0.00-4.44 - Ratio * C holesterol 147 <200 - mg/dL * H DL Cholesterol 68 >39 - mg/dL * L DL Cholesterol (Calculation) 57 <130 - mg/d L * L DL/HDL Ratio 0.8 <3.3 - Ratio * N on-HDL Cholesterol 79 <130 - mg/dL * T riglycerides 108 <150 - mg/dL * Ester Michael 06/11/2024 1 0:13:39 PM >See phone encounter 3.?Gastroesophageal reflux disease, esophagitis presence not specified? Refill Pantoprazole Sodium Tablet Delayed Release, 40 MG, 1 tab(s), orally, once a day, 90 days, 90Tablet, Refills 1.?? * Immunizations: Fluzone High Dose (65yr and older) : 0.5 mL (Route: Intramuscular) given by Chasity Siddiqui on Right Deltoid (Encounter for immunization) * Procedure Codes: 9 4760 PULSE OX * Follow Up: 6 Months * Images: Billing Information: * Visit Code: 88960 Office Visit, Est Pt., Level 4. * Procedure Codes: 10114 PULSE OX. * Electronic signature of Ester Michael MD on 08/02/2025 at 01:02 PM EST Sign off status: Pending * Provider: Ester Michael M.D. Date: 0 06/06/2024 Generated for Katherine dimas/Brenden/eTransmitting on: 10/02/2024 01:02 PM EST History and Physical Notes * HPI (History of Present Illness) Category Sub-Category Detail Notes Category Not es Cardiology Short of Breath Chest Pain Palpitations Leg Edema HPI Patient is here today for a chec k up and fasting labs as well as a refill on prescriptions. Examination Category Sub-Category Detail Notes Category Not es Cardiology Lungs: clear, no rales or wheezes Heart sounds: RRR, normal S1, S2 Abdomen: positive BS, soft, n ontender Carotid upstroke: normal, no bruits Extremities: no leg edema Murmur, click , gallop: none General Appearance: pleasant, NAD
--- OUTSIDE RECORDS SUMMARY | 2024-06-13 03:45 | XMS_ITS ---
Author Organization [facility] Address [address] [facility] [address] [place] [phone] Care Team Providers Care Optical Mechanic Name Role Phone Ester Michael Primary Care Provider [phone] Rodrigo Funk [phone] Results Component Value Reference Range Notes Glycohemoglobin A1c (in hous e) Reviewed date:06/15/2024 05:15:16 PM Interpretation:6.2% Performing Lab: Notes/Report: 6.2% glycohemoglobin 6.2% 5 - 6.5 % REASON FOR VISIT A1C check Encounters Encounter Location Date Provider Diagnosis [facility] [address] [facility] [address] [place] [phone] 06/13/2024 Ester Michael Elevated glucose level R73.09 Assessments Encounter Date Diagnosis (ICD Code) Assessment Notes Treatment Notes Treatment Clinical Notes Section Notes 06/13/2024 Elevated glucose level (ICD-10 - R73.09) Plan Of Treatment No Information Progress Notes * LIZZETH TORIBIOB:1960 (65 yo F)Acc No.[id number]:06/13/2024 Patient: COLLINS BRITT Provider: Ester Michael M.D. :1960 A ge:64 Y S ex:Female Date:06/13/2024 Address:[id number] Subjective: * Chief Complaints: * 1 . A1C check. * Medical History: Objective: * Vitals: Assessment: * Assessment: 1. E levated glucose level - R73.09 Plan: * Treatment: Value Reference Range g lycohemoglobin 6.2% 5 - 6.5 % * Chasity Siddiqui 06/13/2024 9:44 :59 AM >Ester Michael 06/15/2024 5:15:07 PM > See phone encounter * Procedure Codes: 3 6416 CAPILLARY BLOOD DRAW, 86366 GLYCATED HEMOGLOBIN TEST, Modifiers: QW * Images: Billing Information: * Visit Code: * Procedure Codes: 80763 CAPILLARY BLOOD DRAW. 02697 GLYCATED HEMOGLOBIN TEST. Modifiers: QW * Electronic signature of Ester Michael MD on 08/02/2025 at 12:57 PM EST Sign off status: Pending * Provider: Ester Michael M.D. Date: Generated for Katherine dimas/Brenden/eTransmitting on: 10/02/2024 12:57 PM EST
--- OUTSIDE RECORDS SUMMARY | 2024-08-07 10:00 | XMS_ITS ---
Author Organization [facility] Address [address] [place] [id number] Care Team Providers Care C Programmer Name Role Phone Ester Michael Primary Care Provider [phone] Rodrigo Funk Unavailable [phone] Laura Singh Unavailable [phone] Allergies No Known Allergies REASON FOR VISIT [facility] F/U ER Medications Medication SIG (Take, Route, Frequency, Duration) Notes Start Date End Date Status Lisinopril 10 MG 1 tab(s) orally once a day; Duration: 90 days Active Pravastatin Sodium 40 MG 1 tab(s) orally once a day; Duration: 90 days Active Sertraline HCl 50 MG 1 tab(s) orally onc e a day; Duration: 90 days Active Cyclobenzaprine HCl 10 MG 1 tablet at be dtime as needed Orally tid prn 08/07/2024 Active Pantoprazole Sodium 40 MG 1 tab(s) orall y once a day; Duration: 90 days 12/11/2022 Active Vitamin D3 500 1 CAP(S) ORALLY ONCE A DAY 02/15/20 15 Active Multivitamin - 1 tab(s) orally once a day; Duration: 30 day(s) Active Vitamin C 250 MG 1 tab(s) orally once a day; Duration: 30 day(s) Active Vitamin B-12 1000 MCG 1 tab(s) orally once a day 0 02/14/2015 Active Problems Problem Type SNOMED Code ICD Code Onset Dates Problem Status W/U Status Risk Notes Problem Neck pain (49765972) Neck pain (M54.2) Active confirmed Vital Signs Blood pressure systolic 110 mm Hg 08/07/20 24 Blood pressure diastolic 70 mm Hg 024 Heart Rate 65 /min 08/07/2024 Height 61 in 08/07/2024 Weight 251.2 lbs 08/07/2024 BMI 47.46 kg/m2 08/07/2024 Encounters Encounter Location Date Provider Diagnosis [facility] [address] [place] [id number] 08/07/2024 Laura Singh Back pain M54.9 ; Neck pain M54.2 and Fall W19.XXXA Assessments Encounter Date Diagnosis (ICD Code) Assessment Notes Treatment Notes Treatment Clinical Notes Section Notes 08/07/2024 Back pain (ICD-10 - M54.9) heat/ cold application; encouraged to use walker ; has appt with [facility] as arranged in the ER 08/15/2024 which she will keep; to continue with tylenol prn; encouraged to curtail activity; cautioned that med will make her sleepy 08/07/2024 Neck pain (ICD-10 - M54.2) 08/07/2024 Fall (ICD-10 - W19.XXXA) Plan Of Treatment Medication Medication Name Sig Start Date Stop Date Notes Cyclobenzaprine HCl 10 MG 1 tablet at be dtime as needed Orally tid prn 08/07/2024 Treatment Notes Assessment Notes Back pain heat/ cold applicati on; encouraged to use walker ; has appt with [facility] as arranged in the ER 08/15/2024 which she will keep; to continue with tylenol prn; encouraged to curtail activity; cautioned that med will make her sleepy Next Appt Details Follow Up: keep [facility] appt;,and prn, Reason: Progress Notes * LIZZETH TORIBIOB:1960 (65 yo F)Acc No.[id number]:08/07/2024 Progress Notes Patient: COLLINS BRITT Provider: RUPA Gill :1960 A ge:64 Y S ex:Female Date:08/07/2024 Address:[facility] [address], [place] Pcp:Ester Michael Subjective: * Chief Complaints: * 1 . [facility] F/U ER. * HPI: H PI: 64 year old female presents with c/o Here for follow up on:?Pt sts she was at [facility] ER on Wednesday and sts she was seen there for a fall that she had. Pt and daughter stated that she was very active yesterday; this AM she was stiff reviewed 08/05/2024 ER record; following is documentation of the visit: Medical Decision Narrative: _insert review patient is a 64-year-old female presenting to the emergency department for evaluation of fall 1 hour prior to arrival. She fell over her the side of the stairs landing on back.. Patient is hemodynamically stable and nontoxic- appearing upon arrival, afebrile. Differential diagnosis includes fractures versus abrasions and sprains and strains. Workup will be conducted with hematologic labs, CT scans of hip, back head and neck. Initial inventions include analgesics. Initial workup reviewed by me normal labs. Imaging informally interpreted by me and remarkable for possible sacral fracture Formal imaging read remarkable for questionable sacral fracture, L2-L4 transverse process fracture. upon repeat evaluation patient's pain is improved. Discussed with orthospine and they recommend patient getting PT. Send home and following up in trauma clinic in 2 to 3 weeks. He said that nothing to do about process fractures. He did not see a fracture of the sacral area on the scan when he looked. [facility] will call patient with appointment for follow-up. Patient up to walk in the ER with pain but still able to ambulate will send home with pain meds. L ower back: c/o Low Back Pain o n left side. c/o fall. c/o some relief with medication. c/o sleeping well. Denies : Previous Injury. D enies : bowel or bladder dysfunction. * ROS: C ARDIOLOGY: no D izziness. [...] 1 tab(s) orally once a day , Medication List reviewed and reconciled with the patient * Allergies: N .K.D.A. Objective: * Vitals: W t:251.2, Temp:98.4, BP:110/70, HR:65, Nurse:[facility], Ht: 61, BMI:47.46. * Examination: G eneral Examination: General Appearance: NAD, appears healthy, alert, pleasant; walking with a limp. H eart: RRR. L ungs: CTAB A&P. N eurologic Exam:? alert and oriented. L ower back: Inspection: exaggerated lordosis. P alpation: no vertebral spine tenderness, no paraspinal spasm. S traight leg raising test: negative bilaterally. G ait: favoring affected side. R hillary of motion: decreased at terminal ranges. N lanre: Vertebral spine tenderness: absent. P araspinal muscle spasm: present on right side. R hillary of motion of neck: limited lateral bending.? X ray: CT Scan 08/05/2024 cervical spine CTFINDINGS: Bones: No acute fracture. Normal alignment. No significant disc bulge or herniation. No severe spinal canal stenosis. No significant neural foraminal narrowing. Lungs: Lung apices are normal. Soft tissues: Unremarkable. IMPRESSION: No acute findings. 08/05/2024 head CTFINDINGS: Brain: No intracranial bleed. No midline shift. Mild chronic intracranial changes, likely age related. Cerebral ventricles: No ventriculomegaly. Paranasal sinuses: Visualized sinuses are unremarkable. No fluid levels. Mastoid air cells: Visualized mastoid air cells are well aerated. Bones: Unremarkable. No acute fracture. Soft tissues: Unremarkable. IMPRESSION: No acute intracranial abnormality. 08/05/2024 Lumbar spine CTIMPRESSION: 1. There are acute mildly displaced fractures encompassing the left L3-L4 and L5 transverse processes. No traumatic subluxation. 2. Possible, acute, hairline fracture of the left sacral ala (series 1001 image 36). 3. There is a large bridging osteophyte at L1-L2 level. There is a nondisplaced fracture (series 1002, image 37) at the L2 attachment. 08/05/2024 Pelvid CTIMPRESSION: There appears to be a hairline fracture along the left sacral ala. 08/05/2024 chest CTIMPRESSION: 1. No pulmonary contusion or laceration. 2. No acute osseous abnormality. 08/05/2024 left hip xrayMPRESSION: Questionable left sacral ala fracture is better characterized on prior CT bony pelvis. . L ABS: [facility] ER lab data: 08/05/24 12:23: WBC 7.0, RBC 5.01, Hgb 14.1, Hct 42.8, MCV 85.3, MCH 28.1, MCHC 32.9, RDW 14.2, Plt Count 257, MPV 8.2, Neut % (Auto) 68.0, Lymph % (Auto) 16.2, Pope % (Auto) 7.6, Eos % (Auto) 6.6, Baso % (Auto) 1.6, Neut # (Auto) 4.7, Lymph # (Auto) 1.1, Pope # (Auto) 0.5, Eos # (Auto) 0.5 H, Baso # (Auto) 0.1, Sodium 139, Potassium 4.5, Chloride 103, Carbon Dioxide 25, Anion Gap 15.5 H, BUN 19 H, Creatinine 1.80 H, Estimated Creat Clear 25, Estimated GFR 28 L, Est GFR ( Amer) 34 L, Glucose 162 H, Calcium 9.3, Total Bilirubin 0.6, AST 27, ALT 21, Alkaline Phosphatase 75, Total Protein 6.9, Albumin 4.2, Globulin 2.7, Albumin/Globulin Ratio 1.6, Hepatitis C Antibody Non reactive, HIV 1&2 Antibody Rapid Nonreactive . Assessment: * Assessment: 1. B ack pain - M54.9 (Primary) 2 . N lanre pain - M54.2 3 .?Fall - W19.XXXA Plan: * Treatment: * Follow Up: cyndy KWAN appt;,and prn * Images: Billing Information: * Visit Code: 62275 Office Visit, Est Pt., Level 4. * Procedure Codes: * Electronic signature of Kimi Singh APRN on 08/02/2025 at 01:01 PM EST Sign off status: Pending * Provider: RUPA Gill Date: 10/07/2023 Generated for Katherine dimas/Brenden/Usamaitting on: 10/02/2024 01:01 PM EST History and Physical Notes * HPI (History of Present Illness) Category Sub-Category Detail Notes Category Not es Lower back fall Previous Injury Low Back Pain on left side some relief with medication sleeping well bowel or bladder dysfunction HPI Here for follow up on: Pt sts sh e was at [facility] ER on Wednesday and sts she was seen there for a fall that she had Pt and daughter stated that she was very active yesterday; this AM she was stiff reviewed 08/05/2024 ER record; following is documentation of the visit: Medical Decision Narrative: _insert review patient is a 64-year-old female presenting to the emergency department for evaluation of fall 1 hour prior to arrival. She fell over her the side of the stairs landing on back.. Patient is hemodynamically stable and nontoxic-appearing upon arrival, afebrile. Differential diagnosis includes fractures versus abrasions and sprains and strains. Workup will be conducted with hematologic labs, CT scans of hip, back head and neck. Initial inventions include analgesics. Initial workup reviewed by me normal labs. Imaging informally interpreted by me and remarkable for possible sacral fracture Formal imaging read remarkable for questionable sacral fracture, L2-L4 transverse process fracture. upon repeat evaluation patient's pain is improved. Discussed with [facility] and they recommend patient getting PT. Send home and following up in trauma clinic in 2 to 3 weeks. He said that nothing to do about process fractures. He did not see a fracture of the sacral area on the scan when he looked. [facility] will call patient with appointment for follow-up. Patient up to walk in the ER with pain but still able to ambulate will send home with pain meds Examination Category Sub-Category Detail Notes Category Not es General Examination Heart: RRR Lungs: CTAB A&P General Appearance: NAD, appears healthy , alert, pleasant; walking with a limp Neurologic Exam: alert and oriented Neck Vertebral spine tenderness: absent Paraspinal muscle spasm: present on righ t side Range of motion of neck: limited lateral bending Lower back Straight leg raising test: negative bilat erally Gait: favoring affected si de Inspection: exaggerated lordosis Palpation: no vertebral spine t enderness, no paraspinal spasm Range of motion: decreased at termina l ranges LABS [facility] ER lab data: 08/05/24 12:23: WBC 7.0, RBC 5.01, Hgb 14.1, Hct 42.8, MCV 85.3, MCH 28.1, MCHC 32.9, RDW 14.2, Plt Count 257, MPV 8.2, Neut % (Auto) 68.0, Lymph % (Auto) 16.2, Pope % (Auto) 7.6, Eos % (Auto) 6.6, Baso % (Auto) 1.6, Neut # (Auto) 4.7, Lymph # (Auto) 1.1, Pope # (Auto) 0.5, Eos # (Auto) 0.5 H, Baso # (Auto) 0.1, Sodium 139, Potassium 4.5, Chloride 103, Carbon Dioxide 25, Anion Gap 15.5 H, BUN 19 H, Creatinine 1.80 H, Estimated Creat Clear 25, Estimated GFR 28 L, Est GFR ( Amer) 34 L, Glucose 162 H, Calcium 9.3, Total Bilirubin 0.6, AST 27, ALT 21, Alkaline Phosphatase 75, Total Protein 6.9, Albumin 4.2, Globulin 2.7, Albumin/Globulin Ratio 1.6, Hepatitis C Antibody Non reactive, HIV 1&2 Antibody Rapid Nonreactive X ray CT Scan 08/05/2024 cervi liz spine CTFINDINGS: Bones: No acute fracture. Normal alignment. No significant disc bulge or herniation. No severe spinal canal stenosis. No significant neural foraminal narrowing. Lungs: Lung apices are normal. Soft tissues: Unremarkable. IMPRESSION: No acute findings. 08/05/2024 head CTFINDINGS: Brain: No intracranial bleed. No midline shift. Mild chronic intracranial changes, likely age related. Cerebral ventricles: No ventriculomegaly. Paranasal sinuses: Visualized sinuses are unremarkable. No fluid levels. Mastoid air cells: Visualized mastoid air cells are well aerated. Bones: Unremarkable. No acute fracture. Soft tissues: Unremarkable. IMPRESSION: No acute intracranial abnormality. 08/05/2024 Lumbar spine CTIMPRESSION: 1.?? There are acute mildly displaced fractures encompassing the left L3-L4 and L5 transverse processes. No traumatic subluxation. 2.?? Possible, acute, hairline fracture of the left sacral ala (series 1001 image 36). 3.?? There is a large bridging osteophyte at L1-L2 level. There is a nondisplaced fracture (series 1002, image 37) at the L2 attachment. 08/05/2024 Pelvid CTIMPRESSION: There appears to be a hairline fracture along the left sacral ala. 08/05/2024 chest CTIMPRESSION: 1.?? No pulmonary contusion or laceration. 2.?? No acute osseous abnormality. 08/05/2024 left hip xrayMPRESSION: Questionable left sacral ala fracture is better characterized on prior CT bony pelvis.
--- OUTSIDE RECORDS SUMMARY | 2024-10-30 06:15 | XMS_ITS ---
Author [facility] Address [address] [place] [id number] Care Team Providers Care Administrative Receptionist Name Role Phone Ester Michael Primary Care Provider Rodrigo Funk Unavailable [phone] Laura Singh Unavailable [phone] Allergies No Known Allergies Results Component Value Reference Range Notes Influenza Screen (in house) Reviewed date:10/30/2024 08:12:57 PM Interpretation:pos fluA Performing Lab: Notes/Report: pos fluA results pos fluA Covid test (in house) Reviewed date:10/30/2024 08:12:40 PM Interpretation:neg Performing Lab: Notes/Report: neg Result: neg REASON FOR VISIT cough, headache Medications Medication SIG (Take, Route, Frequency, Duration) Notes Start Date End Date Status Vitamin C 250 MG 1 tab(s) orally once a day; Duration: 30 day(s) Active Lisinopril 10 MG 1 tab(s) orally once a day; Duration: 90 days Active Multivitamin - 1 tab(s) orally once a day; Duration: 30 day(s) Active Pantoprazole Sodium 40 MG 1 tab(s) orall y once a day; Duration: 90 days 12/11/2022 Active Pravastatin Sodium 40 MG 1 tab(s) orally once a day; Duration: 90 days Active Vitamin B-12 1000 MCG 1 tab(s) orally on ce a day 02/14/2015 Active Sertraline HCl 50 MG 1 tab(s) orally onc e a day; Duration: 90 days Active Vitamin D3 500 1 CAP(S) ORALLY ONCE A DAY 02/14/2015 Active Yzkikexopbsgvdh-CG-AS-APAP 43-12-971-325 MG 1 tablet as needed Orally every 4 hrs prn 10/30/2024 Active Tamiflu 75 MG 1 capsule Orally Twi ce a day; Duration: 5 day(s) 10/30/2024 Active Cyclobenzaprine HCl 10 MG 1 tablet at be dtime as needed Orally tid prn 08/07/2024 Active Vital Signs Blood pressure systolic 122 mm Hg 10/30/19 Blood pressure diastolic 80 mm Hg 025 Heart Rate 112 /min 10/30/2024 Height 61 in 10/30/2024 Weight 247.0 lbs 10/30/2024 BMI 46.67 kg/m2 10/30/2024 Encounters Encounter Location Date Provider Diagnosis [facility] [address], [place] [phone] 10/30/2024 Laura Singh Influenza A J10.1 an d Cough R05.9 Assessments Encounter Date Diagnosis (ICD Code) Assessment Notes Treatment Notes Treatment Clinical Notes Section Notes 10/30/2024 Influenza A (ICD-10 - J10.1) fluids, rest, supportive measures for fever/symptom relief; infectious precautions 10/30/2024 Cough (ICD-10 - R05.9) Plan Of Treatment Medication Medication Name Sig Start Date Stop Date Notes Bjtzqehatnfdrba-VA-OH-APAP 73-31-690-325 MG 1 tablet as needed Orally every 4 hrs prn 10/30/2024 Tamiflu 75 MG 1 capsule Orally Twi ce a day; Duration: 5 day(s) 10/30/2024 Treatment Notes Assessment Notes Influenza A fluids, rest, suppor tive measures for fever/symptom relief; infectious precautions Next Appt Details Follow Up: prn, Reason: Progress Notes * JENNIFER TORIBIO:1960 (65 yo F)Acc No.[id number]:10/30/2024 Progress Notes Patient: COLLINS BRITT Provider: RUPA Gill :1960 A ge:64 Y S ex:Female Date:10/30/2024 Address:[place], [place] Pcp:Ester Michael Subjective: * Chief Complaints: * 1 . Cough, headache. * HPI: E NT/respiratory: 64 year old female presents with c/o cough. c/o Fever?Pt sts she has felt like she has been running low fevers. c/o headache. c/o chest congestion. Denies : sore throat. D enies : ear pain. D enies : smoking. D enies : body aches. Pt sts she was with her grandson on Wednesday and he just tested positive for the flu; has been able to eat and drink. * ROS: C ARDIOLOGY: no D izziness. [...] tab(s) orally once a day , Taking Cyclobenzaprine HCl 10 MG Tablet 1 tablet at bedtime as needed Orally tid prn , Taking Sertraline HCl 50 MG Tablet 1 tab(s) orally once a day , Medication List reviewed and reconciled with the patient * Allergies: N .K.D.A. Objective: * Vitals: W t:247.0, Temp:100.4, BP:122/80, HR:112, O2 Sat:96% on RA, Nurse:eduard, Ht: 61, BMI:46.67. * Examination: E NT/Respiratory: General Appearance: well nourished and hydrated, alert; appears not to feel well. E yes: sclera and conjunctiva clear. E ars: auditory canals normal bilaterally, tympanic membranes normal bilaterally. O ral cavity : erythema without exudate on pharynx. N lanre : supple, no cervical lymphadenopathy. H eart : RRR. L ungs: CTAB A&P. Assessment: * Assessment: 1. I terrence Romero - J10.1 (Primary) 2 . C ou - R05.9 Plan: * Treatment: 2. C ough Start Zhvuidbgetxexuu-DZ-BM-APAP Tablet, 63-28-199-325 MG, 1 tablet as needed, Orally, every 4 hrs prn, 240 ml, Refills 1. * Labs: * L ab: Covid test (in house) (Collection Date & Time - 10/30/2024) n eg Value Reference Range R esult: neg * Zina Newton 10/30/2024 11:34 :47 AM > Provider reviewed results while patient in office.Laura Singh 10/30/2024 8:12:38 PM > ?Lab: Influenza Screen (in house) (Collection Date & Time - 10/30/2024)?pos fluA* Value Reference Range r esults pos fluA * Zina Newton 10/30/2024 11:34 :15 AM > Provider reviewed results while patient in office.Laura Singh 10/30/2024 8:12:55 PM > * Procedure Codes: G 2211 Complex e/[place], [address] [place], [address] Flu Test- Nasal Swab, Modifiers: QW , 33856 COVID TEST IN HOUSE, Modifiers: QW , 3074F SYST BP LT 130 MM HG, 3079F DIAST BP 80-89 MM HG * Follow Up: p rn * Images: Billing Information: * Visit Code: 73043 Office Visit, Est Pt., Level 3. * Procedure Codes: G2211 Complex e/[place]. [address] [place]. [address] Flu Test- Nasal Swab. Modifiers: QW 07137 COVID TEST IN HOUSE. Modifiers: QW 3074F SYST BP LT 130 MM HG. 3079F DIAST BP 80-89 MM HG. * Electronic signature of Kimi Singh APRN on 08/02/2025 at 01:02 PM EST Sign off status: Pending * Provider: RUPA Gill Date: 0 10/30/2024 Generated for Katherine dimas/Brenden/eTransmitting on: 1 10/02/2024 01:02 PM EST History and Physical Notes * HPI (History of Present Illness) Category Sub-Category Detail Notes Category Not es ENT/respiratory sore throat Pt sts she was with her grandson on Wednesday and he just tested positive for the flu; has been able to eat and drink ear pain cough Fever Pt sts she has felt like she has been running low fevers headache chest congestion smoking body aches Examination Category Sub-Category Detail Notes Category Not es ENT/Respiratory Oral cavity : erythema without exudate on pharynx Ears: auditory canals norm al bilaterally, tympanic membranes normal bilaterally Neck : supple, no cervical lymphadenopathy Heart : RRR Lungs: CTAB A&P General Appearance: well nourished and h ydrated, alert; appears not to feel well Eyes: sclera and conjuncti va clear
--- OUTSIDE RECORDS SUMMARY | 2024-11-20 04:45 | XMS_ITS ---
Author Organization [facility] Address [address] [facility] [address] [place] [id number] Care Team Providers Care Administrative Nursing Supervisor Name Role Phone Ester Michael Primary Care Provider Rodrigo Funk Unavailable [phone] Laura Singh Unavailable [phone] Allergies No Known Allergies Results Component Value Reference Range Notes Glycohemoglobin A1c (in hous e) Reviewed date:11/20/2024 01:09:56 PM Interpretation:6.4% Performing Lab: Notes/Report: 6.4% glycohemoglobin 6.4% 5 - 6.5 % P-Comprehensive Metabolic Pa kathleen (CMP) Reviewed date:11/22/2024 04:36:59 PM Interpretation:gluc 151, Cr 1.4, gfr 42 Performing Lab: Notes/Report: Test performed by [employer] [address] [place] [address] , [address], [place] [address] Dalton Jonas MD, Miniature Model Maker CLIA: [id number] Sodium 139 135-145 mmol/L Potassium 5.2 3.5-5.3 mmol/L Chloride 104 97-108 mmol/L CO2 26 22-32 mmol/L Glucose 151 65-99 mg/dL BUN 15 8-23 mg/dL Creatinine 1.40 0.50-1.00 mg/dL Calcium 9.7 8.6-10.4 mg/dL eGFR by Creatinine 42 >59 mL/min/1.73m2 Protein 6.6 6.0-8.3 g/dL Albumin 4.2 3.5-5.3 g/dL Alkaline Phosphatase 87 35-121 IU/L ALT (SGPT) 13 <5-47 IU/L AST (SGOT) 13 <5-40 IU/L Bilirubin, Total 0.4 <0.2-1.2 mg/dL A/G Ratio 1.8 1.1-2.5 REASON FOR VISIT discuss weight management Medications Medication SIG (Take, Route, Frequency, Duration) Notes Start Date End Date Status Vitamin C 250 MG 1 tab(s) orally once a day; Duration: 30 day(s) Active Multivitamin - 1 tab(s) orally once a day; Duration: 30 day(s) Active Vitamin D3 500 1 CAP(S) ORALLY ONCE A DAY 02/15/20 15 Active Vitamin B-12 1000 MCG 1 tab(s) orally once a day 0 02/14/2015 Active Lisinopril 10 MG 1 tab(s) orally once a day; Duration: 90 days Active Sertraline HCl 50 MG 1 tab(s) orally onc e a day; Duration: 90 days Active Cyclobenzaprine HCl 10 MG 1 tablet at be dtime as needed Orally tid prn 08/07/2024 Active Pantoprazole Sodium 40 MG 1 tab(s) orall y once a day; Duration: 90 days 12/11/2022 Active Wegovy 0.25 MG/0.5ML 0.5 ml Subcutaneous weekly; Duration: 30 day(s) 11/20/2024 Active Pravastatin Sodium 40 MG 1 tab(s) orally once a day; Duration: 90 days Active Problems Problem Type SNOMED Code ICD Code Onset Dates Problem Status W/U Status Risk Notes Problem Hypertension (71852559) HTN (hypertens ion) (I10) Active confirmed Problem Body mass index 40+ - severely obese (181219928) BMI 45.0-49.9, adult (Z68.42) Active confirmed Vital Signs Blood pressure systolic 120 mm Hg 11/21/19 25 Blood pressure diastolic 80 mm Hg 025 Heart Rate 87 /min 11/20/2024 Height 61 in 11/20/2024 Weight 241.2 lbs 11/20/2024 BMI 45.57 kg/m2 11/20/2024 Encounters Encounter Location Date Provider Diagnosis [facility] [address] [facility] [address] [place] [id number] 11/20/2024 Laura Singh HTN (hypertension) I 10 ; Hyperglycemia R73.9 ; Weight loss R63.4 and BMI 45.0-49.9, adult Z68.42 Assessments Encounter Date Diagnosis (ICD Code) Assessment Notes Treatment Notes Treatment Clinical Notes Section Notes 11/20/2024 HTN (hypertension) (ICD-10 - I10) 11/20/2024 Hyperglycemia (ICD-10 - R73.9) 11/20/2024 Weight loss (ICD-10 - R63.4) discussed weight loss plan with healthy foods, portions sizes and exercise 11/20/2024 BMI 45.0-49.9, adult (ICD-10 - Z68.42) Plan Of Treatment Medication Medication Name Sig Start Date Stop Date Notes Wegovy 0.25 MG/0.5ML 0.5 ml Subcutaneous weekly; Duration: 30 day(s) 11/20/2024 Treatment Notes Assessment Notes Weight loss discussed weight los s plan with healthy foods, portions sizes and exercise Next Appt Details Follow Up: 4 Weeks after sta rt of med if approved, Reason: Progress Notes * LIZZETH TORIBIOB:1960 (65 yo F)Acc No.[id number]:11/20/2024 Progress Notes Patient: COLLINS BRITT Provider: RUPA Gill :1960 A ge:64 Y S ex:Female Date:11/20/2024 Address:[facility] [place] Pcp:Ester Michael Subjective: * Chief Complaints: * 1 . Discuss weight management. * HPI: H PI: 64 year old female presents with c/o Patient is here today for?Pt is here today to discuss weight loss management. usually eats 2 meals daily; takes a MVI. * ROS: C ARDIOLOGY: no D izziness. [...] Allergies: N .K.D.A. Objective: * Vitals: W t:241.2, Temp:98.5, BP:120/80, HR:87, O2 Sat:98% on RA, Nurse:eduard, Ht: 61, BMI:45.57. * Examination: G eneral Examination: General Appearance: NAD, alert, appears healthy, pleasant. H eart: RRR. L ungs: CTAB A&P. N eurologic Exam: alert and oriented. E xtremities: trace ankle edema. Assessment: * Assessment: 1. H [place] (hypertension) - I10 (Primary) 2 . H yperglycemia - R73.9 ? 3 . W eight loss - R63.4 4 . B IN 45.0-49.9, adult - Z68.42 ? Plan: * Treatment: Value Reference Range A /G Ratio 1.8 1.1-2.5 - * A lbumin 4.2 3.5-5.3 - g/dL * A lkaline Phosphatase 87 35-121 - IU/L * A LT (SGPT) 13 <5-47 - IU/L * A ST (SGOT) 13 <5-40 - IU/L * B ilirubin, Total 0.4 <0.2-1.2 - mg/dL * B UN 15 8-23 - mg/dL * C alcium 9.7 8.6-10.4 - mg/dL * C hloride 104 97-108 - mmol/L * C O2 26 22-32 - mmol/L * C reatinine 1.40 H 0.50-1.00 - mg/dL * G lucose 151 H 65-99 - mg/dL * P otassium 5.2 3.5-5.3 - mmol/L * S odium 139 135-145 - mmol/L * P rotein 6.6 6.0-8.3 - g/dL * e GFR by Creatinine 42 L >59 - mL/min/1.73m2 * Laura Singh 11/22/2024 4:35:55 PM > no answer when phoned and unable to leave message 2.?Hyperglycemia?LAB: Glycohemoglobin A1c (in house) (Collection Date & Time - 11/20/2024)? 6.4%* Value Reference Range g lycohemoglobin 6.4% 5 - 6.5 % * Zina Newton 11/20/2024 10:48 :46 AM >Laura Singh 11/20/2024 1:09:57 PM > 3.?Weight loss? Notes: discussed weight loss plan with healthy foods, portions sizes and exercise??4.?BMI 45.0-49.9, adult? Start Wegovy Solution Auto-injector, 0.25 MG/0.5ML, 0.5 ml, Subcutaneous, weekly, 30 day(s), 4. ? * Procedure Codes: G 2211 Complex e/[place], [address] CAPILLARY BLOOD DRAW, 419[address] GLYCATED HEMOGLOBIN TEST, Modifiers: QW , 3044F HG A1C LEVEL LT 7.0%, 3074F SYST BP LT 130 MM HG, 3079F DIAST BP 80-89 MM HG * Follow Up: 4 Weeks after start of med if approved * Images: Billing Information: * Visit Code: 00962 Office Visit, Est Pt., Level 4. * Procedure Codes: G2211 Complex e/[place]. [address] CAPILLARY BLOOD DRAW. [address] GLYCATED HEMOGLOBIN TEST. Modifiers: QW 3044F HG A1C LEVEL LT 7.0%. 3074F SYST BP LT 130 MM HG. 3079F DIAST BP 80-89 MM HG. * Electronic signature of Kimi Singh APRN on 08/02/2025 at 01:03 PM EST Sign off status: Pending * Provider: RUPA Gill Date: 0 11/20/2024 Generated for Katherine dimas/Brenden/Usamaitting on: 1 10/02/2024 01:03 PM EST History and Physical Notes * HPI (History of Present Illness) Category Sub-Category Detail Notes Category Not es HPI Patient is here toda y for Pt is here today to discuss weight loss management usually eats 2 meals daily; takes a MVI Examination Category Sub-Category Detail Notes Category Not es General Examination Heart: RRR Lungs: CTAB A&P Extremities: trace ankle edema General Appearance: NAD, alert, appears healthy, pleasant Neurologic Exam: alert and oriented
--- OUTSIDE RECORDS SUMMARY | 2025-02-12 05:15 | XMS_ITS ---
Author Organization [facility] Address [address] [place] [id number] Care Team Providers Care Client Relations Representative Name Role Phone Ester Michael Primary Care Provider [phone] Rodrigo Funk Unavailable [phone] Laura Singh Unavailable [phone] Allergies No Known Allergies REASON FOR VISIT f/u on medications Medications Medication SIG (Take, Route, Frequency, Duration) Notes Start Date End Date Status Pravastatin Sodium 40 MG Take 1 tablet b y mouth once daily; Duration: 90 Active Sertraline HCl 50 MG 1 tab(s) orally onc e a day; Duration: 90 days Active Cyclobenzaprine HCl 10 MG 1 tablet at bedtime as needed Orally tid prn 08/07/2024 Active Vitamin C 250 MG 1 tab(s) orally once a day; Duration: 30 day(s) Active Multivitamin - 1 tab(s) orally once a day; Duration: 30 day(s) Active Ozempic (0.25 or 0.5 MG/DOSE) 2 MG/3ML 0.25 mg Subcutaneous once a week; Duration: 30 days E11.9 TYPE 2 DM w/ FBS of 151 01/01/2025 Active Zepbound 2.5 MG/0.5ML 0.5 mL Subcutaneou s once a week; Duration: 30 days 12/11/2024 Active Vitamin D3 500 1 CAP(S) ORALLY ONCE A DAY 02/14/2015 Active Vitamin B-12 1000 MCG 1 tab(s) orally on ce a day 02/14/2015 Active Ozempic (2 MG/DOSE) 8 MG/3ML 0.5 mg Subcutaneous weekly; Duration: 30 days 02/12/2025 Active Pantoprazole Sodium 40 MG 1 tab(s) orally once a day; Duration: 90 days 12/11/2022 Active Lisinopril 10 MG Take 1 tablet by mouth once daily; Duration: 90 Active Vital Signs Blood pressure systolic 120 mm Hg 02/13/20 25 Blood pressure diastolic 80 mm Hg 025 Heart Rate 56 /min 02/12/2025 Height 61 in 02/12/2025 Weight 238.4 lbs 02/12/2025 BMI 45.04 kg/m2 02/12/2025 Encounters Encounter Location Date Provider Diagnosis [facility] [address], [place] [phone] 02/12/2025 Laura Singh BMI 45.0-49.9, adult Z68.42 ; Encounter for weight loss counseling Z71.3 ; Type 2 diabetes mellitus E11.9 and Mixed hyperlipidemia E78.2 Assessments Encounter Date Diagnosis (ICD Code) Assessment Notes Treatment Notes Treatment Clinical Notes Section Notes 02/12/2025 BMI 45.0-49.9, adult (ICD-10 - Z68.42) 02/12/2025 Encounter for weight loss counseling (ICD-10 - Z71.3) Continue with Ozempic weekly injections, watch food intake, exercise. 02/12/2025 Type 2 diabetes mellitus (ICD-10 - E11.9) 02/12/2025 Mixed hyperlipidemia (ICD-10 - E78.2) Plan Of Treatment Medication Medication Name Sig Start Date Stop Date Notes Ozempic (2 MG/DOSE) 8 MG/3ML 0.5 mg Subc utaneous weekly; Duration: 30 days 02/12/2025 Treatment Notes Assessment Notes Encounter for weight loss counseling Con tinue with Ozempic weekly injections, watch food intake, exercise. Next Appt Details Follow Up: 2 months, prn, Re ason: Progress Notes * LIZZETH TORIBIOB:1960 (65 yo F)Acc No.[id number]:02/12/2025 Progress Notes Patient: COLLINS BRITT Provider: RUPA Gill :1960 A ge:64 Y S ex:Female Date:02/12/2025 Address[place] Pcp:Ester Michael Subjective: * Chief Complaints: * 1 . F/u on medications. * HPI: H PI: 64 year old female presents with c/o Patient is here today for?Pt is here today for a f/u on her Ozempic medication. Pt sts she does need a refill on that today as well. * ROS: C ARDIOLOGY: no D izziness. [...] , Taking Pravastatin Sodium 40 MG Tablet Take 1 tablet by mouth once daily , Taking Lisinopril 10 MG Tablet Take 1 tablet by mouth once daily , Taking Pantoprazole Sodium 40 MG Tablet Delayed Release 1 tab(s) orally once a day , Taking Zepbound 2.5 MG/0.5ML Solution Auto-injector 0.5 mL Subcutaneous once a week , Taking Ozempic (0.25 or 0.5 MG/DOSE) 2 MG/3ML Solution Pen-injector 0.25 mg Subcutaneous once a week , Notes to Pharmacist: E11.9 TYPE 2 DM w/ FBS of 151, Medication List reviewed and reconciled with the patient * Allergies: N .K.D.A. Objective: * Vitals: W t: 238.4, Temp: 98.2, BP: 120/80, HR: 56, O2 Sat: 95% on RA, Nurse: eduard, Ht: 61, BMI:45.04. * Examination: G eneral Examination: General Appearance: N AD, alert, pleasant. H eart: R RR. L ungs: n ormal, clear to auscultation. Assessment: * Assessment: 1. E ncounter for weight loss counseling - Z71.3 (Primary) 2 . B DC 45.0-49.9, adult - Z68.42 3 . T ype 2 diabetes mellitus - E11.9 4 .?Mixed hyperlipidemia - E78.2 Plan: * Treatment: * Procedure Codes: G 2211 Complex e/m visit add on, G8950 PREHTN/HTN BP DOC INDCD F/U DOC, G8752 MOST RECENT SYSTOLIC BP < 140MM HG, G8754 MOST RECENT DIASTOLIC BP < 90MM HG, 3044F HG A1C LEVEL LT 7.0%, 3017F COLORECTAL CA SCREEN DOC REV * Preventive Medicine: Screening / Special Tests: C olonoscopy C ologuard: 05/31/2023, negative. Will be due again 05/31/2026. * Follow Up: 2 months, prn * Images: Billing Information: * Visit Code: 34314 Office Visit, Est Pt., Level 3. * Procedure Codes: G2211 Complex e/m visit add on. G8950 PREHTN/HTN BP DOC INDCD F/U DOC. G8752 MOST RECENT SYSTOLIC BP < 140MM HG. G8754 MOST RECENT DIASTOLIC BP < 90MM HG. 3044F HG A1C LEVEL LT 7.0%. 3017F COLORECTAL CA SCREEN DOC REV. * Electronic signature of Kimi Singh APRN on 08/02/2025 at 01:02 PM EST Sign off status: Pending * Provider: RUPA Gill Date: 0 02/12/2025 Generated for Katherine dimas/Brenden/Usamaitting on: 1 10/02/2024 01:02 PM EST History and Physical Notes * HPI (History of Present Illness) Category Sub-Category Detail Notes Category Not es HPI Patient is here today for Pt is here today for a f/u on her Ozempic medication. Pt sts she does need a refill on that today as well Examination Category Sub-Category Detail Notes Category Not es General Examination Heart: RRR Lungs: normal, clear to aus cultation General Appearance: NAD, alert, pleasant
--- OUTSIDE RECORDS SUMMARY | 2025-04-16 04:30 | XMS_ITS ---
[facility] Address [address] [facility] [address] [place] [id number] Care Team Providers Care Functional Director Name Role Phone Fernanda, Ester Guerrero Primary Care Provider Rodrigo Funk Unavailable [phone] Laura Singh Unavailable [phone] Allergies No Known Allergies Results Component Value Reference Range Notes CBC Venipuncture (in house) Reviewed date:04/17/2025 09:14:19 AM Interpretation: Performing Lab: Notes/Report: wbc 5.3 3.5 - 10 lymph 24.4 15 - 50 mid 6.3 2 - 15 gran 69.3 35 - 80 rbc 4.58 3.5 - 5.5 hgb 13.1 11.5 - 16.5 hct 38.7 35 - 55 mcv 84.5 75 - 100 mch 28.6 25 - 35 mchc 33.8 31 - 38 platlet 259 100 - 400 Glycohemoglobin A1c (in hous e) Reviewed date:04/16/2025 10:41:13 AM Interpretation: Performing Lab: Notes/Report: glycohemoglobin 5.7% 5 - 6.5 % P-Comprehensive Metabolic Pa kathleen (CMP) Reviewed date:04/17/2025 09:16:03 AM Interpretation: Performing Lab: Notes/Report: Test performed by [facility] [address] [place] [address] , [address], [place] [address] Dalton Jonas MD, Bobbin Sorter CLIA: [id number] Sodium 142 135-145 mmol/L Potassium 4.6 3.5-5.3 mmol/L Chloride 108 97-108 mmol/L CO2 25 20-32 mmol/L Glucose 129 65-99 mg/dL BUN 16 8-23 mg/dL Creatinine 1.43 0.50-1.00 mg/dL Calcium 9.2 8.6-10.4 mg/dL eGFR by Creatinine 40 >59 mL/min/1.73m2 Protein 6.0 6.0-8.3 g/dL Albumin 4.1 3.5-5.3 g/dL Alkaline Phosphatase 63 35-121 IU/L ALT (SGPT) 13 <5-47 IU/L AST (SGOT) 15 <5-40 IU/L Bilirubin, Total 0.3 <0.2-1.2 mg/dL A/G Ratio 2.2 1.1-2.5 P-Lipid Panel Reviewed date:04/17/2025 09:13:57 AM Interpretation:LDL 60; HDL 65; TG 90 Performing Lab: Notes/Report: Test performed by [facility], [address] , [place] [address] Dalton Jonas MD, Bobbin Sorter CLIA: [id number] Cholesterol 143 <200 mg/dL Triglycerides 90 <150 mg/dL HDL Cholesterol 65 >39 mg/dL Cholesterol / HDL Ratio 2.20 0.00-4.44 Ratio Non-HDL Cholesterol 78 <130 mg/dL LDL Cholesterol (Calculation) 60 <130 mg/dL LDL Cholesterol Levels* Less than 100 mg/dL Optimal 100 to 129 mg/dL Near Optimal/ Above Optimal 130 to 159 mg/dL Borderline High 160 to 189 mg/dL High 190 mg/dL and above Very High * Categories as recommended by the 2004 ATPIII guidelines LDL/HDL Ratio 0.9 <3.3 Ratio LDL Cholesterol Patient History Test Date: 06/06/2024 LDL Results: 57 Units: mg/dL % Change: - Test Date: 04/16/2025 LDL Results: 60 Units: mg/dL % Change: +5% Mammogram Reviewed date:05/08/2025 02:52:29 PM Interpretation:Negative Performing Lab: Notes/Report: Negative result Negative REASON FOR VISIT 2 months, Needs labs, mammogram, shingles, & Prevnar vaccines Medications Medication SIG (Take, Route, Frequency, Duration) Notes Start Date End Date Status Ozempic (1 MG/DOSE) 4 MG/3ML 1mg Subcuta neous weekly; Duration: 30 days 04/16/2025 Active Cyclobenzaprine HCl 10 MG 1 tablet at be dtime as needed Orally tid prn 08/07/2024 Active Lisinopril 10 MG 1 tablet Orally Once a day Active Pantoprazole Sodium 40 MG 1 tab(s) orall y once a day 12/11/2022 Active Pravastatin Sodium 40 MG Take 1 tablet b y mouth once daily Active Vitamin C 250 MG 1 tab(s) orally once a day; Duration: 30 day(s) Active Multivitamin - 1 tab(s) orally once a day; Duration: 30 day(s) Active Sertraline HCl 50 MG Take 1 tablet by [facility] once daily Active Vitamin D3 500 1 CAP(S) ORALLY ONCE A DAY 02/14/2015 Active Vitamin B-12 1000 MCG 1 tab(s) orally on ce a day 02/14/2015 Active Vital Signs Blood pressure systolic 120 mm Hg 04/16/20 25 Blood pressure diastolic 70 mm Hg 025 Heart Rate 60 /min 04/16/2025 Height 61 in 04/16/2025 Weight 229.6 lbs 04/16/2025 BMI 43.38 kg/m2 04/16/2025 Encounters Encounter Location Date Provider Diagnosis [facility] [address] [place], [place] [id number] 04/16/2025 Laura Singh Weight loss counseli ng, encounter for Z71.3 ; Breast cancer screening Z12.39 ; Mixed hyperlipidemia E78.2 ; Gastroesophageal reflux disease, esophagitis presence not specified K21.9 ; Depression F32.9 ; Hyperglycemia R73.9 and BMI 45.0-49.9, adult Z68.42 Assessments Encounter Date Diagnosis (ICD Code) Assessment Notes Treatment Notes Treatment Clinical Notes Section Notes 04/16/2025 Weight loss counseling, encounter for (ICD-10 - Z71.3) increased dose. monitor for any GI symptoms. discussed current diet and exercvise 04/16/2025 Breast cancer screening (ICD-10 - Z12.39) Has hx of mass in left breast 04/16/2025 Mixed hyperlipidemia (ICD-10 - E78.2) 04/16/2025 Gastroesophageal reflux disease, esophagitis presence not specified (ICD-10 - K21.9) reviewed labs w/ patient. continue meds 04/16/2025 Depression (ICD-10 - F32.9) 04/16/2025 Hyperglycemia (ICD-10 - R73.9) A1C is better. cont Ozempic, portion control, exercising, and water intake. 04/16/2025 BMI 45.0-49.9, adult (ICD-10 - Z68.42) Plan Of Treatment Medication Medication Name Sig Start Date Stop Date Notes Ozempic (1 MG/DOSE) 4 MG/3ML 1mg Subcutaneous weekly; Duration: 30 days 04/16/2025 Lisinopril 10 MG 1 tablet Orally Once a day Ozempic (0.25 or 0.5 MG/DOSE) 2 MG/3ML 0.5 mg Subcutaneous once a week 01/01/2025 E11.9 TYPE 2 DM w/ FBS of 151 Pantoprazole Sodium 40 MG 1 tab(s) orally once a day 12/11/2022 Pravastatin Sodium 40 MG Take 1 tablet b y mouth once daily Sertraline HCl 50 MG Take 1 tablet by [facility] once daily Treatment Notes Assessment Notes Weight loss counseling, encounter for in creased dose. monitor for any GI symptoms. discussed current diet and exercvise Breast cancer screening Has hx of mass i n left breast Gastroesophageal reflux dise ase, esophagitis presence not specified reviewed labs w/ patient. continue meds Hyperglycemia A1C is better. cont Ozempic, portion control, exercising, and water intake. Next Appt Details Follow Up: 4 Months,and prn, Reason: Progress Notes * NYA TORIBIOADOB:1960 (65 yo F)Acc No.[id number]:04/16/2025 Progress Notes Patient: COLLINS BRITT Provider: RUPA Gill :1960 A ge:65 Y S ex:Female Date:04/16/2025 Address:[address], [place], [id number] Pcp:Ester Michael Subjective: * Chief Complaints: * 1 . 2 months. 2. Needs labs, mammogram, shingles, & Prevnar vaccines. * HPI: H PI: she has been exercising more and eating better. She has increased her water intake and has done better on portion control. She is feeling better and moving better as well. Patient is here today for t o f/u on her Ozempic medication. Pt states she does need a refill on her Ozempic. Pt states no new concerns today. Pt is fasting?. G astroenterology: Denies : Abdominal Pain. D enies : Nausea. D enies : Vomiting. D enies : Diarrhea. D enies : Constipation. * ROS: D ERMATOLOGY: no R cornelio. n o H brayan. G ASTROENTEROLOGY: no N ausea. n o V omiting. n o D iarrhea.? U ROLOGY: no B lood in urine. n o F requent urination. ? * Medical History: H ypertension, Sleep apnea, [...] as needed Orally tid prn , Taking Pravastatin Sodium 40 MG Tablet Take 1 tablet by mouth once daily , Taking Pantoprazole Sodium 40 MG Tablet Delayed Release 1 tab(s) orally once a day , Taking Sertraline HCl 50 MG Tablet Take 1 tablet by mouth once daily , Taking Lisinopril 10 MG Tablet 1 tablet Orally Once a day , Taking Ozempic (0.25 or 0.5 MG/DOSE) 2 MG/3ML Solution Pen-injector 0.5 mg Subcutaneous once a week , Notes to Pharmacist: E11.9 TYPE 2 DM w/ FBS of 151, Discontinued Zepbound 2.5 MG/0.5ML Solution Auto- injector 0.5 mL Subcutaneous once a week , Medication List reviewed and reconciled with the patient * Allergies: N .K.D.A. Objective: * Vitals: W t: 229.6, Temp: 98.2, BP: 120/70, HR: 60, Nurse: pe, Ht: 61, BMI:43.38. * Examination: G eneral Examination: General Appearance: N AD, alert, pleasant. H EENT: S clera and conjunctiva clear, normal. H eart: R RR. L ungs: n ormal, clear to auscultation. A bdomen: n ormal, bowel sounds present, soft and nontender, no organomegaly or masses. N eurologic Exam: a lert and oriented. S kin: n ormal, no rash, color good.?Peripheral pulses: n ormal (2+) bilaterally. E xtremities: n ormal, no leg edema. Assessment: * Assessment: 1. W eight loss counseling, encounter for - Z71.3 (Primary) 2 . B reast cancer screening - Z12.39 3 . M ixed hyperlipidemia - E78.2 4 .?Gastroesophageal reflux disease, esophagitis presence not specified - K21.9 5 . Depression - F32.9 6 . H yperglycemia - R73.9 7 . B [place] 45.0-49.9, adult - Z68.42 Plan: * Treatment: 2. B reast cancer screening I maging: Mammogram (Performed Date - 05/01/2025) N egative Value Reference Range r esult Negative * Clementine Magana 04/17/2025 10:58 :55 AM EDT > faxed to [facility] Jovita Cedillo 05/08/2025 02:52:19 PM EDT > Patient informed of normal results. Notes: Has hx of mass in left breast??3.?Mixed hyperlipidemia? Continue Pravastatin Sodium Tablet, 40 MG, Take 1 tablet by mouth once daily;?Continue Lisinopril Tablet, 10 MG, 1 tablet, Orally, Once a day.?LAB: P-Lipid Panel (Collection Date & Time - 04/16/2025 09:25 AM)?LDL 60; HDL 65; TG 90* Value Reference Range C holesterol / HDL Ratio 2.20 0.00-4.44 - Ratio * C holesterol 143 <200 - mg/dL * H DL Cholesterol 65 >39 - mg/dL * L DL Cholesterol (Calculation) 60 <130 - mg/d L * L DL/HDL Ratio 0.9 <3.3 - Ratio * N on-HDL Cholesterol 78 <130 - mg/dL * T riglycerides 90 <150 - mg/dL * Laura Singh 04/17/2025 09:13:08 AM EDT >I spoke with pt and reported results 4.?Gastroesophageal reflux disease, esophagitis presence not specified? Continue Pantoprazole Sodium Tablet Delayed Release, 40 MG, 1 tab(s), orally, once a day.?LAB: CBC Venipuncture (in house) (Collection Date & Time - 04/16/2025)* Value Reference Range w bc 5.3 3.5 - 10 * l ymph 24.4 15 - 50 * m id 6.3 2 - 15 * g ran 69.3 35 - 80 * r bc 4.58 3.5 - 5.5 * h gb 13.1 11.5 - 16.5 * h ct 38.7 35 - 55 * m cv 84.5 75 - 100 * m ch 28.6 25 - 35 * m chc 33.8 31 - 38 * p latlet 259 100 - 400 * Zina Newton 04/16/2025 10:56 :44 AM EDT >Laura Singh 04/17/2025 09:14:05 AM EDT >I spoke with pt and reported results Notes: reviewed labs w/ patient. continue meds??5.?Depression? Continue Sertraline HCl Tablet, 50 MG, Take 1 tablet by mouth once daily.?? 6.?Hyperglycemia? Stop Ozempic (0.25 or 0.5 MG/DOSE) Solution Pen-injector, 2 MG/3ML, 0.5 mg, Subcutaneous, once a week, Notes to Pharmacist: E11.9 TYPE 2 DM w/ FBS of 151.?LAB: P-Comprehensive Metabolic Panel (CMP) (Collection Date & Time - 04/16/2025 09:25 AM)* Value Reference Range A /G Ratio 2.2 1.1-2.5 - * A lbumin 4.1 3.5-5.3 - g/dL * A lkaline Phosphatase 63 35-121 - IU/L * A LT (SGPT) 13 <5-47 - IU/L * A ST (SGOT) 15 <5-40 - IU/L * B ilirubin, Total 0.3 <0.2-1.2 - mg/dL * B UN 16 8-23 - mg/dL * C alcium 9.2 8.6-10.4 - mg/dL * C hloride 108 97-108 - mmol/L * C O2 25 20-32 - mmol/L * C reatinine 1.43 H 0.50-1.00 - mg/dL * G lucose 129 H 65-99 - mg/dL * P otassium 4.6 3.5-5.3 - mmol/L * S odium 142 135-145 - mmol/L * P rotein 6.0 6.0-8.3 - g/dL * e GFR by Creatinine 40 L >59 - mL/min/1.73m2 * Laura Singh 04/17/2025 09:14:27 AM EDT >I spoke with pt and reported results ?LAB: Glycohemoglobin A1c (in house) (Collection Date & Time - 04/16/2025)* Value Reference Range g lycohemoglobin 5.7% 5 - 6.5 % * Viri Harris 04/16/2025 10 :30:30 AM EDT > Provider reviewed results while patient in office.Laura Singh 04/16/2025 10:41:06 AM EDT > Notes: A1C is better. cont Ozempic, portion control, exercising, and water intake.?? * Procedure Codes: G 2211 Complex e/[place], [address] CBC WITH AUTO DIFF, 46813 GLYCATED HEMOGLOBIN TEST, Modifiers: QW , 3044F HG A1C LEVEL LT 7.0%, 1036F TOBACCO NON-USER, G8783 BP SCR PRFRM RCMDD DEFIND SCR INTVL, G8752 MOST RECENT SYSTOLIC BP < 140MM HG, G8754 MOST RECENT DIASTOLIC BP < 90MM HG, G8431 CLIN DEPRESSION SCREEN DOC positive * Follow Up: 4 Months,and prn * Images: Billing Information: * Visit Code: 00601 Office Visit, Est Pt., Level 4. * Procedure Codes: G2211 Complex e/[place]. [address] CBC WITH AUTO DIFF. 80394 GLYCATED HEMOGLOBIN TEST. Modifiers: QW 3044F HG A1C LEVEL LT 7.0%. 1036F TOBACCO NON-USER. G8783 BP SCR PRFRM RCMDD DEFIND SCR INTVL. G8752 MOST RECENT SYSTOLIC BP < 140MM HG. G8754 MOST RECENT DIASTOLIC BP < 90MM HG. G8431 CLIN DEPRESSION SCREEN DOC positive. * Electronic signature of Kimi Singh APRN on 08/02/2025 at 01:02 PM EST Sign off status: Pending * Provider: RUPA Gill Date: 0 04/16/2025 Generated for Katherine dimas/Brenden/eTransmitting on: 1 10/02/2024 01:02 PM EST History and Physical Notes * HPI (History of Present Illness) Category Sub-Category Detail Notes Category Not es Gastroenterology Vomiting Abdominal Pain Diarrhea Nausea Constipation HPI Patient is here today for to f/u on her Ozempic medication. Pt states she does need a refill on her Ozempic. Pt states no new concerns today. Pt is fasting Examination Category Sub-Category Detail Notes Category Not es General Examination HEENT: Sclera and conjunctiv a clear, normal Heart: RRR Lungs: normal, clear to aus cultation Abdomen: normal, bowel sounds present, soft and nontender, no organomegaly or masses Extremities: normal, no leg edema General Appearance: NAD, alert, pleasant Skin: normal, no rash, col or good Neurologic Exam: alert and oriented Peripheral pulses: normal (2+) bilatera lly
[2025-08-02 11:36] LABS: Coronavirus 19, PCR Not Detected (NotDetected); Influenza A, PCR Not Detected (NotDetected); Influenza B, PCR Not Detected (NotDetected)
--- OUTSIDE RECORDS SUMMARY | 2025-08-02 12:58 | XMS_ITS | Clinical Summary ---
Author Organization [employer] ([place], [place], [place], [place], [place]) Address [address] [place] [address] Care Team Providers Care Patch Press Operator Name Role Phone Unavailable Primary Care Provider [...]
--- OUTSIDE RECORDS SUMMARY | 2025-08-02 12:58 | XMS_ITS | Clinical Summary ---
Author Organization [facility] Address [address] [place] [address] Care Team Providers Care Hand Drawer In Name Role Phone Asher Funk MD Primary Care Provider [phone] Allergies No known active allergies Medications cyanocobalamin [...] Health Maintenance Due Date Last Done Comments [facility]-Bone Density Scan 1960 [facility]-Hepatitis C Screening 1960 [...] - Risk 60-74 years 1-dose series) 2019 [id number] Vaccine ( season) 2025 08/22/2021, 01/03/2021, 11/29/2020 [...] to complete this topic Insurance MEDICARE [facility] Care Teams Hand Drawer In Relationship Specialty Start Date End Date Asher Funk MD [address] [place] [address] [place] [address] PCP - General 07/13/22
--- OUTSIDE RECORDS SUMMARY | 2025-08-02 12:59 | XMS_ITS | Encounter Summary ---
Author Organization [facility] ([place], [place], [place], [place], [place]) Address [address] [place] [address] Care Team Providers Care Safety Officer Name Role Phone Unavailable Primary Care Provider Unavailabl e Encounter Details Date Type Department Care Team (Late st Contact Info) Description 10/13/2019 Transcribed Document [facility] [place] [address] [place] [address] ProviderCatherine MD [address] [place] [address] Social History Tobacco Use Types [...] - Historical ProviderMD - 10/13/2019 3:26 AM SKATE BOARDER Electronically signed by [facility], [facility] Conversion Finance Lecturer Cerner at 12/31/2022 1:38 PM CDT documented in this encounter Plan of Treatment Not on file documented as of this encounter Visit Diagnoses Not on filedocumented in this encounter
--- OUTSIDE RECORDS SUMMARY | 2025-08-02 12:59 | XMS_ITS | Referral Summary ---
Author Organization [employer] ([place], [place], [place], [place], [place]) Address [address] [place] [address] Care Team Providers Care Resawyer Name Role Phone Unavailable Primary Care Provider [...]
--- OUTSIDE RECORDS SUMMARY | 2025-08-02 12:59 | XMS_ITS | Encounter Summary ---
Author Organization [employer] ([place], [place], [place], [place], [place]) Address [address] [place] [address] Care Team Providers Care Livestock Commission Agent Name Role Phone Unavailable Primary Care Provider Unavailabl e Encounter Details Date Type Department Care Team (Late st Contact Info) Description 10/13/2019 Transcribed Document [facility] Family Medicine [address] [place] [address] ProviderCatherine MD [address] [place] [address] Social History Tobacco Use Types [...] - Historical ProviderMD - 10/13/2019 1:36 AM IMPREGNATING MACHINE OPERATOR Patient: SHAYY TORIBIO Age: 59 years Sex: [...] EST Height Source Measured Height Entry Format Pep Height/Length, ARABIC (ft) 5 ft Height/Length ARABIC 2 Inch CLINICALHEIGHT 157.48 cm [place] Body Weight 49.73 kg Weight Source, ED Critical estimated dosing weight Weight Entry Format Pep Weight Yemeni lb 235 lb CLINICALWEIGHT 106.82 kg Body [...] Making Radiology results: Preliminary Report NAME: SHAYY TORIBIO / SEX: 1960 / Female MRN / ACC#: [id number] / [id number] ORDERING PHYSICIAN: Malou Winter MD, EXAM REQUESTED: [id number]--VOSHGC SCAN EXT VEIN UNILATERAL LEFT LEG FACILITY: [facility] DATE: 10/13/2019 RADIOLOGIST NAME: Cliff Bland CLINICAL HISTORY: . LLE PAIN SINCE HEARING [...] his left knee., Medical records obtained from [facility]. X-ray of the left knee reveals osteoarthritis with possible small loose body in the intercondylar region. [facility] does not have official ultrasound results. Therefore ultrasound was paged to rule out DVT of the left lower extremity., Patient has a walker at home., Luis is negative. Request # : [id number]. Reexamination/ Reevaluation Time: 10/13/2019 03:22:00 . Vital [...] EST, Discharge to: Home . Prescriptions: Prescription [facility] [place] 5 mg-325 mg oral tablet (Prescribe): 1 Tab, Oral, Q6H, PRN: for pain, 12 Tab, 0 Refill(s) . Patient was given the following educational materials: Knee Pain, Adult, Rbut-ke-Xfjn. Follow up with: ECHO CHEN Within 2 [...] instructions. Electronically signed by Jeremiah Christianson Conversion [employer] On [employer] Press Cerner at 12/31/2022 1:33 PM CDT documented in this encounter Plan of Treatment Not on file documented as of this encounter Visit Diagnoses Not on filedocumented in this encounter
--- OUTSIDE RECORDS SUMMARY | 2025-08-02 12:59 | XMS_ITS | Encounter Summary ---
Author Organization [employer] ([place], [place], [place], [place], [place]) Address [address] [place] [address] Care Team Providers Care Comber Setter Name Role Phone Unavailable Primary Care Provider Unavailabl e Encounter Details Date Type Department Care Team (Late st Contact Info) Description 10/13/2019 Transcribed Document [facility] [place] Family Medicine [address] [place] [address] ProviderCatherine MD [address] [place] [address] Social History Tobacco Use Types [...] - Catherine ProviderMD - 10/13/2019 3:42 AM NUTRITION COUNSELOR [address] [place] [address] PERSON INFORMATION Name SHAYY TORIBIO Age 59 Years 1960 Sex Female Language PCP ECHO CHEN MD-ORT Marital Status Single Med Service Emergency Medicine Acct# Arrival 10/12/2019 22:47:00 Visit Reason Lower leg pain-swelling; POSSIBLE LEFT KNEE BAKERS CYST RUPTURE Acuity 4 - Non - Urgent LOS 000 04:55 Depart Date: 00:00 AM Address: [place] [address] Comment: PROVIDER INFORMATION Provider Role Assigned Unassigned Bev Kamara, STOCK CAR DRIVER Nurse 10/13/2019 00:34:57 MALOU SHUKLA DO ED [...] PATIENT EDUCATION INFORMATION Instructions: Knee Pain, Adult, Ipid-ge-Qlsk Follow up: With: Address: When: ECHO CHEN [address] [place] [address], [address] [place] [address] [facility] (1) Within 2 to 3 days Comments: Follow-up with the bone doctor as soon as possible regarding knee pain. Discuss with the bone doctor to obtain outpatient MRI of your knee to make sure there is no cartilage or ligament damage. Return at once for any worsening conditions. Comment: Electronically signed by Jeremiah Christianson Conversion Geography Faculty Member Cerner at 12/31/2022 1:30 PM CDT documented in this encounter Plan of Treatment Not on file documented as of this encounter Visit Diagnoses Not on filedocumented in this encounter
--- OUTSIDE RECORDS SUMMARY | 2025-08-02 12:59 | XMS_ITS | Patient Health Record ---
[facility] Address [address] [facility] [address] [place] [id number] Care Team Providers Care Corrugated Sheet Material Sheeter Name Role Phone Ester Michael Primary Care Provider Rodrigo Funk Unavailable [phone] Laura Singh Unavailable [phone] Jackeline Kenny Unavailable [phone] Allergies No Known Allergies Results Component Value Reference Range Notes Influenza Screen (in house) Reviewed date:10/30/2024 08:12:57 PM Interpretation:pos fluA Performing Lab: Notes/Report: pos fluA results pos fluA Covid test (in house) Reviewed date:10/30/2024 08:12:40 PM Interpretation:neg Performing Lab: Notes/Report: neg Result: neg Covid test (in house) (Not y et reviewed by provider) Interpretation: Performing Lab: Notes/Report: Result: neg CBC Fingerstick (in house) ( Not yet reviewed by provider) Interpretation: Performing Lab: Notes/Report: wbc 6.2 3.5 - 10 lym 25.8% 15 - 50 mid 6.7% 2 - 15 gran 67.5% 35 - 80 rbc 5.13 3.5 - 5.5 hgb 14.7 11.5 - 16.5 hct 44.7 35 - 55 mcv 87.0 75 - 100 mch 28.7 25 - 35 mchc 33.0 31 - 38 plat 182 100 - 400 Rapid Strep- Inhouse (Not ye t reviewed by provider) Interpretation: Performing Lab: Notes/Report: strep test neg Influenza Screen (in house) (Not yet reviewed by provider) Interpretation: Performing Lab: Notes/Report: results neg Glycohemoglobin A1c (in hous e) Reviewed date:11/20/2024 01:09:56 PM Interpretation:6.4% Performing Lab: Notes/Report: 6.4% glycohemoglobin 6.4% 5 - 6.5 % P-Comprehensive Metabolic Pa kathleen (CMP) Reviewed date:11/22/2024 04:36:59 PM Interpretation:gluc 151, Cr 1.4, gfr 42 Performing Lab: Notes/Report: Test performed by [facility] , [address], [place] [address] Dalton Jonas MD, Sap Portal Architect CLIA: [id number] Sodium 139 135-145 mmol/L Potassium 5.2 3.5-5.3 [...] 0.4 <0.2-1.2 mg/dL A/G Ratio 1.8 1.1-2.5 CBC Venipuncture (in house) Reviewed date:04/17/2025 09:14:19 [...] Interpretation: Performing Lab: Notes/Report: Test performed by [facility] [address] [place] [address] , [address], [place] [address] Dalton Jonas MD, Sap Portal Architect CLIA: [id number] Sodium 142 135-145 mmol/L Potassium 4.6 3.5-5.3 [...] 90 Performing Lab: Notes/Report: Test performed by [facility] [address] [place] [address] , [address], [place] [address] Dalton Jonas MD, Sap Portal Architect CLIA: [id number] Cholesterol 143 <200 mg/dL Triglycerides 90 <150 [...] Interpretation:Negative Performing Lab: Notes/Report: Negative result Negative Bone density Reviewed date:02/22/2025 05:22:21 PM Interpretation:Normal Performing Lab: Notes/Report: Normal Medications Medication SIG (Take, Route, Frequency, Duration) Notes Start Date End Date Status Ozempic (1 MG/DOSE) 4 MG/3ML 1 mg Subcut aneous weekly; Duration: 30 days 04/16/2025 Active Lisinopril 10 MG Take 1 tablet by theresa th once daily; Duration: 90 Active Pantoprazole Sodium 40 MG Take 1 tablet by mouth once daily; Duration: 90 Active Bromfed DM 2-30-10 MG/5ML 5-10 mL Orally four times a day, prn 08/02/2025 Active Vitamin B-12 1000 MCG 1 tab(s) orally on ce a day 02/14/2015 Active Vitamin D3 500 1 CAP(S) ORALLY ONCE A DAY 02/14/2015 Active Multivitamin - 1 tab(s) orally once a day; Duration: 30 day(s) Active Sertraline HCl 50 MG Take 1 tablet by [facility] once daily; Duration: 90 Active Pravastatin Sodium 40 MG 1 tablet Orally Once a day; Duration: 90 days Active Vitamin C 250 MG 1 tab(s) orally once a day; Duration: 30 day(s) Active Cyclobenzaprine HCl 10 MG 1 tablet at be dtime as needed Orally tid prn 08/07/2024 Active Immunizations Vaccine Route Administration Date Status [...] Status W/U Status Risk Notes Problem Osteoarthrosis (888660790) OSTEOARTHROS NOS-L/LEG (715.96) Active confirmed Problem Type 2 diabetes mellitus (44618043) Type 2 diabetes mellitus (E11.9) Active confirmed Problem Hypertension (09170643) HTN (hypertension) (I10) Active confirmed Problem Vitamin D deficiency (57949850) Vitamin D deficiency (E55.9) Active confirmed Problem Essential hypertension (95784453) Essential hypertension (I10) Active confirmed Problem Body mass index 40+ - severely obese (382362842) BMI 45.0-49.9, adult (Z68.42) Active confirmed Problem Mixed hyperlipidemia (717567897) Mixed hyperlipidemia (E78.2) Active confirmed Problem Loose body in knee (79300770) Loose body in knee, left knee (M23.42) Active confirmed Problem Vaccination given (011221966) Encounter for immunization (Z23) Active confirmed Problem Renal insufficiency (203916294) Renal insufficiency (N28.9) Active confirmed Problem Mammography abnormal (299092278) Abnormal mammogram of left breast (R92.8) Active confirmed Problem Depression (605193653) Depression (F32.9) Active confirmed Problem Neck pain (50814383) Neck pain (M54.2) Active confirmed Problem Gastroesophageal reflux disease (463521103) Gastroesophageal reflux disease, esophagitis presence not specified (K21.9) Active confirmed Problem Verruca vulgaris (46756391) Viral warts, unspecified type (B07.9) Active confirmed Problem Fibrocystic breast changes (80172368) Fibrocystic breast disease (FCBD), unspecified laterality (N60.19) Active confirmed Problem Esophageal dysphagia (56420997) Esophageal dysphagia (R13.10) Active confirmed Vital Signs Heart Rate 71 /min 08/02/2025 Blood pressure diastolic 72 mm Hg 08/02/2025 Height 61 in 08/02/2025 Blood pressure systolic 124 mm Hg 08/02/2025 Weight 212.4 lbs 08/02/2025 BMI 40.13 kg/m2 08/02/2025 Encounters Encounter Location Date Provider Diagnosis [facility] [facility] [facility] [address] [place] [id number] 08/07/2024 Lauralance Singh Back pain M54.9 ; Ne ck pain M54.2 and Fall W19.XXXA [facility] [facility] [address] [place] [id number] 10/30/2024 Laura Singh Influenza A J10.1 an d Cough R05.9 [facility] [facility] [facility] [address] [place] [id number] 11/20/2024 Laura Singh HTN (hypertension) I 10 ; Hyperglycemia R73.9 ; Weight loss R63.4 and BMI 45.0-49.9, adult Z68.42 [facility] [facility] [facility] [address] [place] [id number] 02/12/2025 Laura Singh BMI 45.0-49.9, adult Z68.42 ; Encounter for weight loss counseling Z71.3 ; Type 2 diabetes mellitus E11.9 and Mixed hyperlipidemia E78.2 [facility] [address] [place], [place] [id number] 04/16/2025 Laura Singh Weight loss counseli judie, encounter for Z71.3 ; Breast cancer screening Z12.39 ; Mixed hyperlipidemia E78.2 ; Gastroesophageal reflux disease, esophagitis presence not specified K21.9 ; Depression F32.9 ; Hyperglycemia R73.9 and BMI 45.0-49.9, adult Z68.42 [facility] [address] [place], [place] [id number] 08/02/2025 Jackeline Kenny Acute URI J06.9 [facility] [address] [place], [place] [id number] 11/23/2024 Laura Singh [facility] [address] [place], [place] [id number] 12/11/2024 Laura Singh BMI 45.0-49.9, adult Z68.42 [facility] [address] [place], [place] [id number] 01/01/2025 R Cesar Fernanda [facility] [address] [place], [place] [id number] 02/12/2025 Laura Singh Encounter for weight loss counseling Z71.3 [facility] [address] [place], [place] [id number] 02/13/2025 R Cesar Fernanda [facility] [address] [place] [id number] 04/23/2025 R Cesar Fernanda [facility] [address] [place], [place] [id number] 12/07/2024 Rodrigo Funk Gastroesophageal ref lux disease, esophagitis presence not specified K21.9 [facility] [address] [place], [place] [id number] 12/29/2024 Laura Singh [facility] [address] [place] [id number] 03/07/2025 Rodrigo Funk [facility] [address] [place] [id number] 03/08/2025 Rodrigo Funk [facility] [address] [place] [id number] 05/21/2025 Rodrigo Funk Mixed hyperlipidemia E78.2 [facility] [address] [place], [place] [id number] 06/02/2025 Laura Singh Weight loss counseli judie, encounter for Z71.3 [facility] [address] [place], [place] [id number] 07/24/2025 Rodrigo Funk Weight loss counseli judie, encounter for Z71.3 Assessments Encounter Date Diagnosis (ICD Code) Assessment [...] sleepy 08/07/2024 Neck pain (ICD-10 - M54.2) 10/30/2024 Influenza A (ICD-10 - J10.1) fluids, rest, supportive measures for fever/symptom relief; infectious precautions 10/30/2024 Cough (ICD-10 - R05.9) 11/20/2024 Hyperglycemia (ICD-10 - R73.9) 11/20/2024 HTN (hypertension) (ICD-10 - I10) 12/11/2024 BMI 45.0-49.9, adult (ICD-10 - Z68.42) 02/12/2025 BMI 45.0-49.9, adult (ICD-10 - Z68.42) 04/16/2025 Weight loss counseling, encounter for (ICD-10 - Z71.3) increased dose. monitor for any GI symptoms. discussed current diet and exercvise 05/21/2025 Mixed hyperlipidemia (ICD-10 - E78.2) 06/02/2025 Weight loss counseling, encounter for (ICD-10 - Z71.3) 07/24/2025 Weight loss counseling, encounter for (ICD-10 - Z71.3) 08/02/2025 Acute URI (ICD-10 - J06.9) fluids, rest, supportive measures for fever/symptom relief 12/07/2024 Gastroesophageal reflux disease, esophagitis presence not specified (ICD-10 - K21.9) 02/12/2025 Encounter for weight loss counseling (ICD-10 - Z71.3) Continue with Ozempic weekly injections, watch food intake, exercise. 02/12/2025 Encounter for weight loss counseling (ICD-10 - Z71.3) 04/16/2025 Breast cancer screening (ICD-10 - Z12.39) Has hx of mass in left breast 04/16/2025 Mixed hyperlipidemia (ICD-10 - E78.2) 02/12/2025 Type 2 diabetes mellitus (ICD-10 - E11.9) 11/20/2024 Weight loss (ICD-10 - R63.4) discussed weight loss plan with healthy foods, portions sizes and exercise 08/07/2024 Fall (ICD-10 - W19.XXXA) 11/20/2024 BMI 45.0-49.9, adult (ICD-10 - Z68.42) [...] Treatment Pending Test Test Name Order Date Influenza Screen (in house) 08/02/2025 Rapid Strep- Inhouse 08/02/2025 CBC Fingerstick (in house) 08/02/2025 Covid test (in house) 08/02/2025 H-URI Panel-mini (Rhino,flu A/B, RSV, Co vid) 08/02/2025 Insurance Providers Payer Name Payer Address Payer Phone Subscriber Number Group Number Insured Name Patient Relationship to Insured Coverage Start Date Coverage End Date MEDICARE PART B [address] [address] [place] [id number] COLLINS TORIBIO Self - patient is the insured [facility] [address] [place] [address] [id number] COLLINS TORIBIO Self - patient is the [...]
--- OUTSIDE RECORDS SUMMARY | 2025-08-02 13:00 | XMS_ITS | Encounter Summary ---
Author Organization [employer] ([place], [place], [place], [place], [place]) Address [address] [place] [address] Care Team Providers Care Oracle Database Manager Name Role Phone Unavailable Primary Care Provider Unavailabl e Encounter Details Date Type Department Care Team (Late st Contact Info) Description 10/13/2019 Transcribed Document [facility] [place] Family Medicine [address] [place] [address] ProviderCatherine MD [address] [place] [address] Social History Tobacco Use Types [...] - Historical ProviderMD - 10/13/2019 3:42 AM SMALL ENGINE MECHANIC ED Discharge Entered On: 10/13/2019 3:42 EST [...] 10/13/2019 3:42 EST Electronically signed by Meghan [facility] Conversion Relations Liaison Cerner at 12/31/2022 1:13 PM CDT documented in this encounter Plan of Treatment Not on file documented as of this encounter Visit Diagnoses Not on filedocumented in this encounter
--- OUTSIDE RECORDS SUMMARY | 2025-08-02 13:00 | XMS_ITS | Encounter Summary ---
Author Organization [employer] ([place], [place], [place], [place], [place]) Address [address] [place] [address] Care Team Providers Care Dredge Lever Operator Name Role Phone Unavailable Primary Care Provider Unavailabl e Encounter Details Date Type Department Care Team (Late st Contact Info) Description 10/12/2019 Transcribed Document [facility] [place] Family Medicine [address] [place] [address] ProviderCatherine MD [address] [place] [address] Social History Tobacco Use Types [...] - Historical ProviderMD - 10/12/2019 10:48 PM DIRECTOR BEHAVIORAL HEALTH [place] Suicide Severity Rating Scale (C-SSRS) Entered On: 10/13/2019 0:43 EST Performed On: 10/13/2019 0:42 EST by Bev Kamara RN [place] Suicide Severity Rating Scale (C-SSRS) CSSRS Past Month Wish to be : No CSSRS Past Month Suicidal Thoughts : No CSSRS Lifetime Suicide Behavior : No Suicide Severity Rating Score : 0 Suicide Severity Rating : No Additional Care Required at this time Bev Kamara RN - 10/13/2019 0:42 EST Electronically signed by Meghan [facility] Conversion Roof Mechanic Cerner at 12/31/2022 1:40 PM CDT documented in this encounter Plan of Treatment Not on file documented as of this encounter Visit Diagnoses Not on filedocumented in this encounter
--- OUTSIDE RECORDS SUMMARY | 2025-08-02 13:00 | XMS_ITS | Encounter Summary ---
Author Organization [employer] ([place], [place], [place], [place], [place]) Address [address] [place] [address] Care Team Providers Care Mattress Renovator Name Role Phone Unavailable Primary Care Provider Unavailabl e Encounter Details Date Type Department Care Team (Late st Contact Info) Description 10/13/2019 Transcribed Document [facility] [place] [address] [place] [address] ProviderCatherine MD [address] [place] [address] Social History Tobacco Use Types [...] Catherine Oleary MD - 10/13/2019 3:41 AM OUTDOOR EMERGENCY CARE TECHNICIAN [place] [id number] SHAYY TORIBIO :1960 Visit Time:10/12/2019 Your Visit [...] once for any worsening conditions. Where: [address] [facility] [address] [place] [address]- Business (1) Allergies No Known Medication Allergies Immunizations This Visit No Immunizations Found Medications What How Much When Instructions Next Dose New acetaminophen-hydrocodone ([place] 5 mg-325 mg oral tablet) 1 Tablet(s) [...] 11/26/2009 Document Revised: 08/24/2017 Document Reviewed: 08/24/2017 [employer] Interactive Patient Education ?? 2019 MEETiiN. Emergency Awareness and Preventative Care STROKE is [...] Assistance with quitting is available by contacting 3-162-ADRF-NOW. This is a free resource providing counseling, [...] was given the opportunity to ask questions. Patient/Drama Director Name: Patient/Drama Director Signature: Relationship to Patient: Clinician/Hospital Drama Director Signature: Please Provide a Telephone Number Where You Can Be Reached: Is it Permissible To Leave a Message? Date: documented in this encounter Plan of Treatment Not on file documented as of this encounter Visit Diagnoses Not on filedocumented in this encounter
--- OUTSIDE RECORDS SUMMARY | 2025-08-02 13:01 | XMS_ITS | Encounter Summary ---
Author Organization [employer] ([place], [place], [place], [place], [place]) Address [address] [place] [address] Care Team Providers Care Finance Teacher Name Role Phone Unavailable Primary Care Provider Unavailabl e Encounter Details Date Type Department Care Team (Late st Contact Info) Description 10/12/2019 Transcribed Document [facility] [place] Family Medicine [facility] [place] [address] ProviderCatherine MD [address] [place] [address] Social History Tobacco Use Types [...] - Historical ProviderMD - 10/12/2019 10:48 PM PATIENT ACCOUNTS SPECIALIST ED Triage Entered On: 10/12/2019 23:17 EST Performed On: 10/12/2019 23:14 EST by PETTY PACHECO CONTOUR STITCHER Triage Across the Room Chief Complaint : [...] - Non - Urgent Tracking Group : [facility] ED East PETTY PACHECO RN - [...] Measles, Mumps Tuberculosis Symptoms : None PETTY PACHEOC RN - 10/12/2019 23:14 EST Vital Signs [...] 23:17:37 EST) Problems(Active) HTN (hypertension) (SNOMED CT :0073275926 ) Name of Problem: HTN (hypertension) ; Recorder: PETTY PACHECO RN; Confirmation: Confirmed ; Classification: Medical ; Code: [id number] ; Contributor System: [employer] ; Last Updated: 10/12/2019 23:17 EST ; Life Cycle Date: 10/12/2019 ; Life Cycle Status: Active ; Vocabulary: SNOMED CT Diagnoses(Active) Lower leg pain-swelling Date: 10/12/2019 ; Diagnosis Type: Reason For Visit ; Confirmation: Complaint of ; Clinical Dx: Lower leg pain-swelling ; Classification: Medical ; Clinical Service: Emergency medicine ; Code: PNED ; Probability: 0 ; Diagnosis Code: [id number] ED Height and Weight Height Source : Measured Height Entry Format : [place] Height, Feet : 5 ft(Converted to: 152 cm, 60 Inch) Height, Inches : 2 Inch(Converted to: 0 ft 2 Inch, 5.08 cm) Clinical Height : 157.48 cm Weight Source, ED : Critical estimated dosing weight Weight Entry Format : [place] Weight, Pounds : 235 lb Clinical Dosing Weight : 106.82 kg Body Surface Area (BSA) : 2.05 m2 Body Mass Index : 43.1 kg/m2 (>HHI) [place] Body Weight (IBW) : 49.73 kg PETTY [...] PETTY PACHECO RN - 10/12/2019 23:14 EST documented in this encounter Plan of Treatment Not on file documented as of this encounter Visit Diagnoses Not on filedocumented in this encounter
--- OUTSIDE RECORDS SUMMARY | 2025-08-02 13:01 | XMS_ITS | Encounter Summary ---
Author Organization [employer] ([place], [place], [place], [place], [place]) Address [address] [place] [id number] Care Team Providers Care Tanker Driver Name Role Phone Unavailable Primary Care Provider Unavailabl e Encounter Details Date Type Department Care Team (Late st Contact Info) Description 10/12/2019 Transcribed Document [facility] [place] Medicine [address] [place] [address] ProviderCatherine MD [address] [place] [address] Social History Tobacco Use Types [...] - Historical ProviderMD - 10/12/2019 10:48 PM PROGRAM[employer] ED Assessment Entered On: 10/13/2019 0:43 EST Performed On: 10/13/2019 0:42 EST by eBv Kamara RN ED Quick Look Assessment Level of Consciousness : Alert, Awake Affect/Behavior : Appropriate, Calm, Cooperative Orientation : Oriented x 4 Skin Temperature : Warm Skin Description : Normal for ethnicity Bev Kamara RN - 10/13/2019 0:42 EST ED General-Functional Assess Communication Barrier : None Primary Language : Chinese Any Spiritual/Cultural Needs or Requests : No [...] - 10/13/2019 0:42 EST Electronically signed by Jeremiah Christianson Conversion Mechanical Drawing Teacher Cerner at 12/31/2022 1:16 PM CDT documented in this encounter Plan of Treatment Not on file documented as of this encounter Visit Diagnoses Not on filedocumented in this encounter
== END 2025-08-02 23:59 | disposition home or self-care (01) ==
LOC: LAB 11:24
PROVIDERS: PCP Family Medicine; Visit Provider Physician Assistant
DX: J06.9 Acute upper respiratory infection, unspecified (principal)
CPT/HCPCS: 87631